=== PATIENT | male | born 2000 | race Caucasian/White ===

== ENCOUNTER 2023-04-16 00:52 | Emergency (ER) | payer OTHER, SELFPAY ==
[2023-04-16] VITALS (40 sets, daily range): BP systolic 108–165; BP diastolic 69–91; PULSE 60–102; RESP 9–26; TEMP 36.6; O2SAT 94–98; BMI 30.4
--- NOTE | 2023-04-16 00:55 | ED.OVERDOSE1 ---
Documented by User: Jessica Walker MD 04/16/23 19:27 HPI - Overdose General Chief Complaint: Overdose Stated Complaint: SUICIDE Time Seen by Provider: 04/16/23 00:54 History of Present Illness HPI Narrative: Patient brought in via EMS with the complaint of suicidal ideation. Patient states approximately 1220 he overdosed on 15-20 metoprolol 25 mg tablets. The cup with him and he drank one bottle of Capt. Oli and then to contact the pills saying that he wanted to kill himself. She states he thought that he was never going to be able to see history month And That's Why He Was so Depressed and Wanted to Kill Himself. However Now That He Is in the Hospital Anymore, He Realizes That He Shouldn't that that was thumb because he would never want to leave his son without his father. patient has never been hospitalized for mental health. he's never attempted suicide. patient found his father from suicide by hanging When he was 15.He states he is still sees the picture of his father hanging and he would not want this to happen to his children. The patient does not have any somatic complaints. MD complaint: Reports intentional overdose Intent: suicide attempt Related Data Home Medications Medication Instructions Recorded Confirmed cariprazine 3 mg capsule (Vraylar) 3 mg PO Q24H 04/16/23 04/16/23 clonazepam 0.5 mg tablet 0.5 mg PO Q12H PRN anxiety 04/16/23 04/16/23 pantoprazole 40 mg tablet,delayed 40 mg PO Q12H PRN acid reflux 04/16/23 04/16/23 release Allergies Allergy/AdvReac Type Severity Reaction Status Date / Time No Known Drug Allergies Allergy Verified 04/16/23 00:57 Review of Systems ROS Status of ROS 10 or more systems reviewed and unremarkable except as noted in history and below PFSH PFSH Social History Smoking status: Current every day smoker Exam Narrative Exam Narrative: Nurses notes and vital signs reviewed and patient is not hypoxic. General: Nontoxic, Well-appearing and in no apparent distress. Skin: Warm, dry, no pallor noted. No Rash Head: Normocephalic, atraumatic. Neck: Supple, non-tender. Eye: Pupils are equal, round and EOMI. No scleral icterus. Ears, Nose, Mouth, and Throat: TM clear, no posterior oropharynx erythema or nasal mucosal hypertrophy, uvula is mid-line Oral mucosa is moist Cardiovascular: Regular Rate and Rhythm without murmur, gallop or rub. Respiratory: No accessory muscle use or respiratory distress. Lungs are clear to auscultation, no wheezing, rales or rhonchi Chest Wall: no tenderness Back: No midline thoracic or lumbar vertebral tenderness. No CVA tenderness Musculoskeletal: normal ROM, no calf or popliteal tenderness, no lower extremity edema/swelling GI: Abdomen is soft, non-distended. Normal bowel sounds. No masses appreciated. No tenderness to palpation. No rebound, guarding, or rigidity noted. Neurological: A&O x4. No cranial nerve dysfunction observed. No truncal ataxia. Moves all extremities. Sensation intact. Psychiatric: Cooperative, flat affect Constitutional Vital Signs, click to edit/add: Last Vital Signs Temp 97.9 F 04/16/23 00:53 Pulse 69 04/16/23 05:39 Resp 16 04/16/23 05:39 BP 126/78 04/16/23 11:13 Pulse Ox 97 04/16/23 08:51 O2 Del Method Room Air 04/16/23 05:39 Course Vital Signs Vital signs: Vital Signs Blood Pressure 165/91 H 04/16/23 00:51 Temperature 97.9 F 04/16/23 00:53 Pulse Rate 69 04/16/23 05:39 Respiratory Rate 16 04/16/23 05:39 Blood Pressure 126/78 04/16/23 11:13 Pulse Oximetry 97 04/16/23 08:51 Oxygen Delivery Method Room Air 04/16/23 05:39 MDM - Overdose MDM Narrative Medical decision making narrative: Charcoal was ordered but the patient refused to take it. Controlled was contacted and they advised the patient did not want the charcoal they will would advise against doing an NG tube. Patient's potassium was low he was given 60 mEq of potassium. The patient remains hemodynamically stable. Patient is medically clear for inpatient psychiatric evaluation and treatment. He has been monitored since hours postingestion. He has not had any episodes of bradycardia or hypotension. All the paperwork has been faxed to [address] to direct admit this patient. Patient will be signed out at the end of my shift Dr. Godinez awaiting placement. This note was created with the assistance of a speech recognition program. Although the intention is to generate documents that actually reflects the content of the visit, no guarantees can be provided that every mistake has been identified and corrected by editing. Lab Data Attestation: I reviewed the patient's lab results. Labs: Lab Results 04/16/23 04/16/23 Range/Units 01:03 07:19 WBC 10.6 (4.0-11.0) 10^3/uL RBC 5.44 (4.70-6.10) 10^6/uL Hgb 16.7 (14.0-18.0) g/dL Hct 47.0 (42.0-54.0) % MCV 86.4 (80.0-94.0) fL MCH 30.7 (25.9-34.0) pg MCHC 35.5 H (29.9-35.2) g/dL RDW 12.6 (11.0-15.0) % Plt Count 241 (150-450) 10^3/uL MPV 9.7 (9.5-13.5) fL Neut % (Auto) 56.4 (43.0-75.0) % Lymph % (Auto) 28.8 (20.5-60.0) % [place] % (Auto) 6.8 (1.7-12.0) % Eos % (Auto) 6.8 (0.9-7.0) % Baso % (Auto) 0.8 (0.2-2.0) % Neut # (Auto) 6.0 (1.4-6.5) 10^3/uL Lymph # (Auto) 3.0 (1.2-3.8) 10^3/uL [place] # (Auto) 0.7 (0.3-0.8) 10^3/uL Eos # (Auto) 0.7 (0.0-0.7) 10^3/uL Baso # (Auto) 0.1 (0.0-0.1) 10^3/uL Abs Immat Gran (auto) 0.04 H (0.00-0.03) 10^3/uL Imm/Tot Granulo (auto) 0.4 (0.0-0.5) % Sodium 143 (136-145) mmol/L Potassium 2.9 L* 4.5 (3.5-5.1) mmol/L Chloride 109 H (98-107) mmol/L Carbon Dioxide 22.6 (21.0-32.0) mmol/L Anion Gap 14.3 BUN 9.0 (7.0-18.0) mg/dL Creatinine 0.90 (0.70-1.30) mg/dL Est GFR ( Amer) >60 (>=60) Est GFR (Non-Af Amer) >60 (>=60) BUN/Creatinine Ratio 10.0 Glucose 94 (74-106) mg/dL Calcium 8.6 (8.5-10.1) mg/dL Total Bilirubin 0.4 (0.2-1.0) mg/dL AST 26 (15-37) U/L ALT 56 (16-63) U/L Alkaline Phosphatase 104 (46-116) U/L Total Protein 7.4 (6.4-8.2) g/dL Albumin 4.1 (3.4-5.0) g/dL Globulin 3.3 g/dL Albumin/Globulin Ratio 1.2 Salicylates <2.8 (<=19.9) mg/dL Urine Opiates Screen Negative (NEGATIVE) Ur Buprenorphine Scrn Negative (NEGATIVE) Ur Oxycodone Screen Negative (NEGATIVE) Urine Methadone Screen Negative (NEGATIVE) Ur Propoxyphene Screen Negative (NEGATIVE) Acetaminophen <2.0 L (10.0-30.0) ug/mL Ur Barbiturates Screen Negative (NEGATIVE) U Tricyclic Antidepress Negative (NEGATIVE) Ur Phencyclidine Scrn Negative (NEGATIVE) Ur Amphetamines Screen Negative (NEGATIVE) U Methamphetamines Scrn Negative (NEGATIVE) U Benzodiazepines Scrn Negative (NEGATIVE) Urine Cocaine Screen Negative (NEGATIVE) U Cannabinoids Screen Negative (NEGATIVE) Ethanol Quant 41 mg/dL ECG Data Attestation: I personally reviewed and interpreted this ECG as follows: Discharge Plan Discharge Chief Complaint: Overdose Clinical Impression: Suicide attempt by beta lluvia overdose Patient Disposition: [facility] Time of Disposition Decision: 07:00 Discharge Location: [facility] Mode of Transportation: Mental Health Car Discharge Date/Time: 04/16/23 11:20 Documented by User: Jose Godinez 04/16/23 11:27 HPI - Overdose General Chief Complaint: Overdose Stated Complaint: SUICIDE Time Seen by Provider: 04/16/23 00:54 Related Data Home Medications Medication Instructions Recorded Confirmed cariprazine 3 mg capsule (Vraylar) 3 mg PO Q24H 04/16/23 04/16/23 clonazepam 0.5 mg tablet 0.5 mg PO Q12H PRN anxiety 04/16/23 04/16/23 pantoprazole 40 mg tablet,delayed 40 mg PO Q12H PRN acid reflux 04/16/23 04/16/23 release Allergies Allergy/AdvReac Type Severity Reaction Status Date / Time No Known Drug Allergies Allergy Verified 04/16/23 00:57 PFSH PFSH Social History Smoking status: Current every day smoker Exam Constitutional Vital Signs, click to edit/add: Last Vital Signs Temp 97.9 F 04/16/23 00:53 Pulse 69 04/16/23 05:39 Resp 16 04/16/23 05:39 BP 126/78 04/16/23 11:13 Pulse Ox 97 04/16/23 08:51 O2 Del Method Room Air 04/16/23 05:39 Course Vital Signs Vital signs: Vital Signs Blood Pressure 165/91 H 04/16/23 00:51 Temperature 97.9 F 04/16/23 00:53 Pulse Rate 69 04/16/23 05:39 Respiratory Rate 16 04/16/23 05:39 Blood Pressure 126/78 04/16/23 11:13 Pulse Oximetry 97 04/16/23 08:51 Oxygen Delivery Method Room Air 04/16/23 05:39 MDM - Overdose MDM Narrative Medical decision making narrative: Charcoal was ordered but the patient refused to take it. Controlled was contacted and they advised the patient did not want the charcoal they will would advise against doing an NG tube. Patient's potassium was low he was given 60 mEq of potassium. The patient remains hemodynamically stable. Patient is medically clear for inpatient psychiatric evaluation and treatment. He has been monitored since hours postingestion. He has not had any episodes of bradycardia or hypotension. All the paperwork has been faxed to [address] to direct admit this patient. Patient will be signed out at the end of my shift Dr. Godinez awaiting placement. This note was created with the assistance of a speech recognition program. Although the intention is to generate documents that actually reflects the content of the visit, no guarantees can be provided that every mistake has been identified and corrected by editing. Addendum - patient accepted at [address] Romeo and was transported by psych car to their facility for admission. No issues with the patient on my shift - Alan, DO Lab Data Labs: Lab Results 04/16/23 04/16/23 Range/Units 01:03 07:19 WBC 10.6 (4.0-11.0) 10^3/uL RBC 5.44 (4.70-6.10) 10^6/uL Hgb 16.7 (14.0-18.0) g/dL Hct 47.0 (42.0-54.0) % MCV 86.4 (80.0-94.0) fL MCH 30.7 (25.9-34.0) pg MCHC 35.5 H (29.9-35.2) g/dL RDW 12.6 (11.0-15.0) % Plt Count 241 (150-450) 10^3/uL MPV 9.7 (9.5-13.5) fL Neut % (Auto) 56.4 (43.0-75.0) % Lymph % (Auto) 28.8 (20.5-60.0) % Huntington % (Auto) 6.8 (1.7-12.0) % Eos % (Auto) 6.8 (0.9-7.0) % Baso % (Auto) 0.8 (0.2-2.0) % Neut # (Auto) 6.0 (1.4-6.5) 10^3/uL Lymph # (Auto) 3.0 (1.2-3.8) 10^3/uL Huntington # (Auto) 0.7 (0.3-0.8) 10^3/uL Eos # (Auto) 0.7 (0.0-0.7) 10^3/uL Baso # (Auto) 0.1 (0.0-0.1) 10^3/uL Abs Immat Gran (auto) 0.04 H (0.00-0.03) 10^3/uL Imm/Tot Granulo (auto) 0.4 (0.0-0.5) % Sodium 143 (136-145) mmol/L Potassium 2.9 L* 4.5 (3.5-5.1) mmol/L Chloride 109 H (98-107) mmol/L Carbon Dioxide 22.6 (21.0-32.0) mmol/L Anion Gap 14.3 BUN 9.0 (7.0-18.0) mg/dL Creatinine 0.90 (0.70-1.30) mg/dL Est GFR ( Amer) >60 (>=60) Est GFR (Non-Af Amer) >60 (>=60) BUN/Creatinine Ratio 10.0 Glucose 94 (74-106) mg/dL Calcium 8.6 (8.5-10.1) mg/dL Total Bilirubin 0.4 (0.2-1.0) mg/dL AST 26 (15-37) U/L ALT 56 (16-63) U/L Alkaline Phosphatase 104 (46-116) U/L Total Protein 7.4 (6.4-8.2) g/dL Albumin 4.1 (3.4-5.0) g/dL Globulin 3.3 g/dL Albumin/Globulin Ratio 1.2 Salicylates <2.8 (<=19.9) mg/dL Urine Opiates Screen Negative (NEGATIVE) Ur Buprenorphine Scrn Negative (NEGATIVE) Ur Oxycodone Screen Negative (NEGATIVE) Urine Methadone Screen Negative (NEGATIVE) Ur Propoxyphene Screen Negative (NEGATIVE) Acetaminophen <2.0 L (10.0-30.0) ug/mL Ur Barbiturates Screen Negative (NEGATIVE) U Tricyclic Antidepress Negative (NEGATIVE) Ur Phencyclidine Scrn Negative (NEGATIVE) Ur Amphetamines Screen Negative (NEGATIVE) U Methamphetamines Scrn Negative (NEGATIVE) U Benzodiazepines Scrn Negative (NEGATIVE) Urine Cocaine Screen Negative (NEGATIVE) U Cannabinoids Screen Negative (NEGATIVE) Ethanol Quant 41 mg/dL Discharge Plan Discharge Chief Complaint: Overdose Clinical Impression: Suicide attempt by beta lluvia overdose Patient Disposition: [facility] Time of Disposition Decision: 07:00 Discharge Location: [facility] Mode of Transportation: Mental Health Car Discharge Date/Time: 04/16/23 11:20
--- NOTE | 2023-04-16 00:57 | ECG_ITS ---
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
[2023-04-16 01:14] LABS: Basophils Absolute Auto 0.1 10^3/uL (0.0-0.1); Basophils Percent Auto 0.8 % (0.2-2.0); Eosinophils Absolute Auto 0.7 10^3/uL (0.0-0.7); Eosinophils Percent Auto 6.8 % (0.9-7.0); Hemoglobin 16.7 g/dL (14.0-18.0); Immature Granulocytes Abs Auto 0.04 10^3/uL (0.00-0.03); Immature Granulocytes Pct Auto 0.4 % (0.0-0.5); Lymphocytes Percent Auto 28.8 % (20.5-60.0); Mean Corpuscular HGB Conc 35.5 g/dL (29.9-35.2); Mean Corpuscular Hemoglobin 30.7 pg (25.9-34.0); Mean Corpuscular Volume 86.4 fL (80.0-94.0); Mean Platelet Volume 9.7 fL (9.5-13.5); Monocytes Absolute Auto 0.7 10^3/uL (0.3-0.8); Monocytes Percent Auto 6.8 % (1.7-12.0); Neutrophils Percent Auto 56.4 % (43.0-75.0); Platelet Count 241 10^3/uL (150-450); Red Blood Count 5.44 10^6/uL (4.70-6.10); Red Cell Distribution Width 12.6 % (11.0-15.0); White Blood Count 10.6 10^3/uL (4.0-11.0)
--- NOTE | 2023-04-16 01:20 | PC.NURSE ---
States now he is not suicidal. It was a stupid mistake. He was worried he wouldn't get to see his son due to the break-up.
[2023-04-16 01:26] LABS: Amphetamine Screen Urine NEGATIVE (NEGATIVE); Barbiturates Screen Urine NEGATIVE (NEGATIVE); Benzodiazepines Screen Urine NEGATIVE (NEGATIVE); Buprenorphine Screen Urine NEGATIVE (NEGATIVE); Cannabinoid Screen Urine NEGATIVE (NEGATIVE); Cocaine Screen Urine NEGATIVE (NEGATIVE); Ethanol 41 mg/dL; Methadone Screen Urine NEGATIVE (NEGATIVE); Methamphetamines Screen Urine NEGATIVE (NEGATIVE); Opiate Screen Urine NEGATIVE (NEGATIVE); Oxycodone Screen Urine NEGATIVE (NEGATIVE); Phencyclidine Screen Urine NEGATIVE (NEGATIVE); Salicylate <2.8 mg/dL (<=19.9); Tricyclic Antidepressant Urine NEGATIVE (NEGATIVE)
[2023-04-16 01:27] LABS: Acetaminophen <2.0 ug/mL (10.0-30.0)
[2023-04-16 01:42] LABS: Alanine Aminotransferase 56 U/L (16-63); Albumin Globulin Ratio 1.2; Albumin Level 4.1 g/dL (3.4-5.0); Alkaline Phosphatase 104 U/L (46-116); Anion Gap 14.3; Aspartate Amino Transferase 26 U/L (15-37); Bilirubin Total 0.4 mg/dL (0.2-1.0); Calcium 8.6 mg/dL (8.5-10.1); Carbon Dioxide 22.6 mmol/L (21.0-32.0); Chloride 109 mmol/L (98-107); Estimated GFR (African America >60 (>=60); Estimated GFR (Non-African Ame >60 (>=60); Globulin 3.3 g/dL; Glucose 94 mg/dL (74-106); Sodium 143 mmol/L (136-145); Total Protein 7.4 g/dL (6.4-8.2)
[2023-04-16] MEDS: 0.9 % SODIUM CHLORIDE 1,000 ML 999 ML IV (01:43)
[2023-04-16 01:44] LABS: Potassium 2.9 mmol/L (3.5-5.1)
[2023-04-16] MEDS: NICOTINE 21 MG PATCH TD (02:37)
[2023-04-16] MEDS: POTASSIUM CHLORIDE 10 MEQ ER TABLET 60 MEQ PO (03:25)
--- NOTE | 2023-04-16 06:14 | PC.NURSE ---
Hotline called and this nurse talked to Lottie about direct admit of this patient. Is aware of [facility]. Everything faxed to [facility].
[2023-04-16 07:30] LABS: Potassium 4.5 mmol/L (3.5-5.1)
[2023-04-16] MEDS: NICOTINE POLACRILEX 2 MG GUM PO (09:35)
== END 2023-04-16 11:20 ==
PROVIDERS: Emergency Medicine; Emergency Provider Emergency Medicine; PCP Family Medicine
DX: T44.7X2A Poisoning by beta-adrenoreceptor antagonists, intentional self-harm, initial encounter (principal); Z79.899 Other long term (current) drug therapy; F17.210 Nicotine dependence, cigarettes, uncomplicated
CPT/HCPCS: 36415; 80053; 80179; 80307; 80320; 80329; 84132; 85025; 93005; 99285

== ENCOUNTER 2023-08-17 09:26 | Outpatient (REF) | payer OTHER, SELFPAY ==
[2023-08-17 10:09] LABS: Influenza Virus A Antigen Negative; Influenza Virus B Antigen Negative; SARS-CoV-2 Ag POSITIVE (NEGATIVE)
[2023-08-17 14:48] LABS: Internal Control Within Normal Limits
== END 2023-08-17 09:27 | disposition home or self-care (01) ==
LOC: LAB 09:26
PROVIDERS: PCP Family Medicine; Visit Provider Family Medicine
DX: R50.9 Fever, unspecified (principal); R05.1 Acute cough
CPT/HCPCS: 87804; 87811

== ENCOUNTER 2025-02-23 15:42 | Emergency (ER) | payer OTHER, SELFPAY ==
--- OUTSIDE RECORDS SUMMARY | 2015-07-07 12:54 | XMS_ITS | Encounter Summary ---
Author Organization [facility] Address [address] [place] [address] Care Team Providers Care Labor Relations Consultant Name Role Phone Catarino Ziegler MD Primary Care Provider [phone] Encounter Details Date Type Department Care Team (Late st Contact Info) Description 07/07/2015 11:54 AM EST Hospital Encounter [facility] [address], [place] [id number] Sharath Plunkett MD [address] [facility] [address] [place], [place] [id number] Social History Tobacco Use Types Packs/Day Years Used Date Smoking Tobacco: Never Alcohol Use Standard Drinks/Week Comments Not Asked 0 (1 standard drink = 0.6 oz pur e alcohol) Sex and Gender Information Value Date Recorded Sex Assigned at Not on file Legal Sex Male 8:02 AM EDT Gender Identity Not on file Sexual Orientation Not on file documented as of this encounter Plan of Treatment Not on file documented as of this encounter Procedures Procedure Name Priority Date/Time Associated Diagnosis Comments RHYTHM STRIP REPORT 07/09/2015 2 :10 PM EST CARDIOLOGY REPORT 07/09/2015 2:1 0 PM EST STRESS TEST REPORT 07/08/2015 10 :43 PM EST NM MYOCARDIAL SPECT REST EXERCISE OR RX Routine 07/07/2015 4:43 PM EST documented in this encounter Results * RHYTHM STRIP REPORT (07/09/2015 2:10 PM EST) [facility] ECG ORDERABLES Final Result * CARDIOLOGY REPORT (07/09/2015 2:10 PM EST) [facility] CARDIAC SERVICES ORDERABLES Seema l Result * STRESS TEST REPORT (07/08/2015 10:43 PM EST) Narrative Transcriptions Sharath Plunkett MD - 07/07/2015 12:00 AM EST [facility] [place] [id number] Cardiovascular Diagnostics Department Patient Name: RAMONITA OSCAR Exam Date: 07/07/2015 CI Number: [id number] Document ID: [id number] Visit Number: [id number] Age: 15 MR Number: [id number] : 2000 Ordering Physician: Sharath Plunkett M.D. Gender: M PCP: Catarino Ziegler M.D. Room: OP Attending Physician: Sharath Plunkett M.D. Location: Radioisotope Stress INDICATION: Chest pain with exertion/accelerated idioventricular rhythm. CONSENT: Test explained and consent given. MEDICAL HISTORY: 15 year old with history of idioventricular accelerated rhythm and occasional exertional chest pain. Thus far all prelimtesting has been normal. He does experience symptoms with track. The patient exercised according to the Edilson protocol for 14:30 minutes achieving a work level of Max. METS: 17.20. The resting HR of 70 BPMrose to a maximal HR of 203 BPM. This value represents 99% of the maximal, age-predicted HR. The resting BP of 125/79 mmHg, alton to a maximum BPof 173/79 mmHg. The exercise test was stopped due to Fatigue and Shortnessof Breath. INTERPRETATION: Summary: Resting EKG: normal sinus rhythm with normal cardiacintervals. Functional Capacity: normal. HR Response to Exercise: appropriate.BP Response to Exercise: normal resting BP, appropriate response. Chest Pain: Mild 5 of 10 substernal (non-limiting) . Arrhythmias: 2isolated premature ventricular contractions during exercise. ST Changes: none. Overall Impression: Normal stress test. CONCLUSIONS: I thought Ramonita exercised well and did not show any evidence ofischemia. His isolated 2 premature ventricular contractions are nonsignificant andhe had no pathologic tachydysrhythmia. His chest pain was not associatedwith any EKG abnormalities and he was able to exercise well. He was somewhat out of shape and took some time to lower his HR after exercise. Please see Cardiolite report issued from the Department of Nuclear Medicine to determine our future plan In order to promptly notify physicians concerning their patients, this document is being released. It is not considered final until the physician's authentication is found below. Sharath Plunkett M.D. pg Dict: 07/07/2015 Trans: 07/08/2015 03:38 P cc: us Sharath Plunkett MD CARDIAC SERVICES ORDERABLES Final Result * NM Myocardial Spect Rest Exercise or Rx (07/07/2015 4:43 PM EST) Anatomical Region Laterality Modality Nuclear Medicine 07/07/2015 4:48 PM EST Impressions 07/07/2015 5:19 PM EST IMPRESSION: Normal study. No evidence for ischemia or infarction. Calculated left ventricular ejection fraction of 61%. Final report electronically signed by Jg Giraldo M.D. on 07/07/2015 5:19 PM Narrative 07/07/2015 5:19 PM EST EXAM: NM MYOCARDIAL SPECT REST EXERCISE OR RX - 07/07/2015 12:43 PM HISTORY: chest pn with exertion, 150# NKA 5'7 COMPARISON: None TECHNIQUE: Exercise myocardial nuclear medicine perfusion study with stress and rest imaging, one day protocol was performed. The patient received 31 mCi technetium 99m sestamibi for the stress portion and 13 mCi technetium 99m sestamibi for the rest portion. The stress portion of the examination was gated. The EKG portion of the study will be dictated independently by cardiology. FINDINGS: No abnormal extracardiac activity identified. Physiologic uptake within the hepatobiliary system. Motion artifact is present. There are no fixed or reversible perfusion defects to suggest myocardial infarction/ischemia. The gated SPECT data demonstrates normal left ventricular thickening and wall motion. The ventricular ejection fraction is calculated at 61%. TID = 0.79, there is no stress-induced cavitary dilatation to suggest compensated triple-vessel disease. SSS 0, SRS 0, SDS 0 Procedure Note Jg Giraldo MD - 11/23/2015 EXAM: NM MYOCARDIAL SPECT REST EXERCISE OR RX - 07/07/2015 12:43 PM HISTORY: chest pn with exertion, 150# NKA 5'7 COMPARISON: None TECHNIQUE: Exercise myocardial nuclear medicine perfusion study withstress and rest imaging, one day protocol was performed. The patientreceived 31 mCi technetium 99m sestamibi for the stress portion and 13 mCitechnetium 99m sestamibi for the rest portion. The stress portion of the examination was gated. The EKG portionof the study will be dictated independently by cardiology. FINDINGS: No abnormal extracardiac activity identified. Physiologic uptake withinthe hepatobiliary system. Motion artifact is present. There are no fixed or reversible perfusion defects to suggest myocardialinfarction/ischemia. The gated SPECT data demonstrates normal left ventricular thickening andwall motion. The ventricular ejection fraction is calculated at 61%. TID = 0.79, there is no stress-induced cavitary dilatation to suggestcompensated triple-vessel disease. SSS 0, SRS 0, SDS 0 IMPRESSION: Normal study. No evidence for ischemia or infarction. Calculated leftventricular ejection fraction of 61%. Final report electronically signed by Jg Giraldo M.D. on 07/07/20155:19 PM us Sharath Plunkett MD IMG NM ORDERABLES Final Resu lt documented in this encounter Visit Diagnoses Not on filedocumented in this encounter Administered Medications Inactive Administered Medications - up to 3 most recent administrations Medication Order MAR Action Action Date Dose Rate Site technetium sestamibi (CARDIOLITE) injection 13 rommel Curie 13 millicurie, IntraVENous, IMG ONCE PRN, 1 dose, Starting on Tue07/07/15 at 1643, Until Tue07/07/15 at 1215, Other Given 07/07/2015 12:15 PM EST 13 millicuries technetium sestamibi (CARDIOLITE) injection 31 rommel Curie 31 millicurie, IntraVENous, IMG ONCE PRN, 1 dose, Starting on Tue07/07/15 at 1643, Until Tue07/07/15 at 1425, Other Given 07/07/2015 2:25 PM EST 31 millicuries documented in this encounter Care Teams Labor Relations Consultant Relationship Specialty Start Date End Date Catarino Ziegler MD [address] [place] [address] PCP - General 07/07/15 documented as of this encounter
--- OUTSIDE RECORDS SUMMARY | 2024-07-23 13:28 | XMS_ITS ---
Author Organization [facility] in [place] Address [address] [place] [address] Care Team Providers Care Contact Lens Cutter Name Role Phone Michel Ziegler Primary Care Provider REASON FOR VISIT smoking Medications Medication SIG (Take, Route, Fr equency, Duration) Notes Start Date End Date Status Nicorette 4 MG 1 piece chew for 30 minutes as needed Mouth/Throat every 6 hours PRN 07/24/2024 A ctive Encounters Encounter Location Date Provider Diagnosis [facility] [address] [place] [address] 07/23/2024 Michel Ziegler Plan Of Treatment Medication Medication Name Sig Start Date Stop Date Notes Nicorette 4 MG 1 piece chew for 30 minutes as needed Mouth/Throat every 6 hours PRN 07/24/2024 Progress Notes * Rickie OSCAR EDOB: [birth year] (24 yo M)Acc No.[id number]:07/23/2024 Patient: Rickie YE :2000 A ge:24 Y S ex:Male Address:[address] [place] [address] [place] [address] * Refills Start Nicorette Gum, 4 MG, Mouth/Throat, 100 Each, 1 piece chew for 30 minutes as needed, every 6 hours PRN, Refills=11 Subjective: * Chief Complaints: * S moking * Medical History: * Surgical History: * Hospitalization/Major Diagno stic Procedure: * Medications: Objective: * Vitals: * Physical Examination: Assessment: Plan: * Treatment: * Procedure Codes: * true * Date: Generated for Talisha butt/Matias/Johny on: 0 02/23/2025 03:59 PM EDT
--- OUTSIDE RECORDS SUMMARY | 2024-08-03 08:49 | XMS_ITS ---
Author Organization [facility] in [place] Address [address] [place] [address] Care Team Providers Care Medical Insurance Biller Name Role Phone Michel Ziegler Primary Care Provider REASON FOR VISIT letter for animal Encounters Encounter Location Date Provider Diagnosis [facility] [address] [facility] [place] [address] 08/03/2024 Michel Ziegler Plan Of Treatment No Information Progress Notes * Rickie OSCAR EDOB: [birth year] (24 yo M)Acc No.[id number]:08/03/2024 Patient: Rickie YE :2000 A ge:24 Y S ex:Male Address:[address] [place] [address] [place] [address] * true * Date: Generated for Sorayai daquan/Favidag/eTransmitting on: 0 02/23/2025 03:59 PM EDT
--- OUTSIDE RECORDS SUMMARY | 2024-10-15 06:03 | XMS_ITS ---
Author Organization [facility] in [place] Address [address] [place] [address] Care Team Providers Care Skull Splitter Name Role Phone Michel Ziegler Primary Care Provider REASON FOR VISIT sick Medications Medication SIG (Take, Route, Frequency, Duration) Notes Start Date End Date Status Amoxicillin-Pot Clavulanate 875-125 MG 1 tablet Orally every 12 hrs for 10 days 10/15/2024 Active Encounters Encounter Location Date Provider Diagnosis [facility] [address] [place] [address] 10/15/2024 Michel Ziegler Plan Of Treatment Medication Medication Name Sig Start Date Stop Date Notes Amoxicillin-Pot Clavulanate 875-125 MG 1 tablet Orally every 12 hrs for 10 days 10/15/2024 Progress Notes * CATHYMirta DESOUZAeden EDOB: [birth year] (24 yo M)Acc No.[id number]:10/15/2024 Patient: Rickie YE Eva :2000 A ge:24 Y S ex:Male Address:[address] [place] [address] * Refills Start Amoxicillin-Pot Clavulanate Tablet, 875-125 MG, Orally, 20 Tablet, 1 tablet, every 12 hrs, 10 days, Refills=1 * true * Date: Generated for Printi ng/Faxing/eTransmitting on: 0 02/23/2025 03:59 PM EDT
[2025-02-23] VITALS (29 sets, daily range): BP systolic 116–156; BP diastolic 91–103; PULSE 90–106; TEMP 37–37.1; O2SAT 90–94; BMI 33.5
--- NOTE | 2025-02-23 15:54 | ECG_ITS ---
[facility] Test Date: 2025-02-23 Pat Name: RAMONITA ADEN Department: Room: - Gender: Male [employer] Representative: : 2000 Requested By: [id number] Order Number: [id number] Reading MD: DENIS LEE Measurements Intervals [place] Rate: 96 P: 13 HI: 112 QRS: 49 QRSD: 74 T: 60 QT: 328 QTc: 382 Interpretive Statements 1100 Sinus rhythm 2210 Short HI interval 9150 abnormal ECG Compared to ECG 04/16/2023 01:00:32 Short HI interval now present Sinus tachycardia no longer present Electronically Signed On 02-26-2025 16:21:39 EDT by DENIS LEE
--- NOTE | 2025-02-23 15:54 | XR_ITS ---
[place] [address] Patient Name: RAMONITA ADEN MRN: [id number] date: 2000 Sex: M Assigned Patient Location: ED.MAIN Current Patient Location: ED.MAIN Accession/Order Number: [id number] Exam Date: 02/23/2025 16:51 Report Date: 02/23/2025 16:53 At the request of: CELESTE BROWN MD Procedure: XR chest 1V XR chest 1V 02/23/2025 4:36 PM SIGNS AND SYMPTOMS: ^sob PROTOCOL: Frontal radiograph of the chest COMPARISON: None FINDINGS: The trachea is midline. The heart and mediastinal structures are within normal limits. The lung parenchyma is clear. The bony thorax is intact. XR/XR chest 1V IMPRESSION: No acute cardiopulmonary pathology. Impression dictated by: Audi Cameron M.D. 02/23/2025 4:53 PM Dictation Location: [place] [address] Electronically authenticated by: [id number] Y Date: 02/23/2025 16:53
--- OUTSIDE RECORDS SUMMARY | 2025-02-23 15:59 | XMS_ITS | CCD ---
Author Organization [facility] Care Team Providers Care Hull Drafter Name Role Phone Unavailable Primary Care Provider UnavailMarisela Khan Primary Care Physician [phone] Unavailable Primary Care Provider UnavailDR MARISELA Khan Primary Care Unavailable VIOLETA TOBAR Admitting Unavailable VIOLETA TOBAR Attending Unavailable DR MARISELA ZIEGLER Primary Care Unavailable JOAQUIM ASCENCIO Admitting Unavailable JOAQUIM ASCENCIO Attending Unavailable RANDI NAQVI Unavailable PROVIDER, UNKNOWN Attending Unavailable PROVIDER, UNKNOWN Admitting Unavailable Feliz Santana Attending Unavailable Provider, None Primary Care Unavailable Feliz Santana Admitting Unavailable Feliz Santana Admitting Unavailable Feliz Santana Attending Unavailable Provider, None Primary Care Unavailable MD Marisela Ziegler Primary Care Provider [phone] DO Wendie Casas Emergency Provider MD Marisela Ziegler Primary Care Provider [phone] MD Margareth Romeo Admit Provider MD Margareth Romeo Attending Provider Jw Chow Attending Unavailable Margareth Romeo Admitting Marisela Conley Primary Care Unavailable Wendie Casas Admitting Unavailable Wendie Casas Attending Unavailable Marisela Zigeler Primary Care Unavailable EVA BRICE Attending Unavailable Medications Current Medications Medication Drug Class(es) Dates Sig (Normalized) Sig (Original) cariprazine 3 mg oral capsule (3 sources) Atypical Antipsychotic Start: 04-16-2023 take 1 capsule by mouth once daily Cariprazine (Vraylar) 3 mg Capsule Active 3 MG PO Daily April 16, 2023 12:00am Start: 05-02-2020 take 1 capsule by mo [facility] once daily Vraylar 3 mg oral capsule 3 mg = 1 cap(s), Oral, Daily, # 30 cap(s), Refills(s) 5, Pharmacy: [facility] 1155, 169.6, cm, 04/09/20 9:30:00 EDT, Height/Length Dosing, 92, kg, 04/09/20 9:30:00 EDT, Weight Dosing Start Date: 05/02/20 Status: Ordered clonazePAM 0.5 mg oral tablet (3 sources) Benzodiazepine Start: 04-16-2023 take 0.5 mg by mouth twice daily Clonazepam Active 0.5 MG PO Twice daily April 16, 2023 12:00am Start: 05-02-2020 take [address] [facility] once daily as needed for anxiety Klonopin 0.5 mg Tab 0.5 mg = 1 tab(s), Oral, Daily, PRN Anxiety, # 30 tab(s), Refills(s) 0, Pharmacy: [facility] 1155, 169.6, cm, 04/09/20 9:30:00 EDT, Height/Length Dosing, 92, kg, 04/09/20 9:30:00 EDT, Weight Dosing Start Date: 05/02/20 Status: Ordered metoprolol tartrate 25 mg oral tablet (2 sources) beta-Adrenergic Louise Start: 04-21-2021 take 1 tablet by mouth twice daily Lopressor 25 mg oral tablet 25 mg = 1 tab(s), Oral, BID, Refills(s) 0, High blood pressure Start Date: 04/21/21 Status: Ordered nicotine 2 mg chewing gum (1 source) Cholinergic Nicotinic Agonist Start: 04-19-2023 Nicotine (Polacrilex) Active 2 MG BUCCAL Q2H 30 April 19, 2023 12:00am pantoprazole 40 mg delayed release oral tablet (2 sources) Proton Pump Inhibitor Start: 03-16-[address] Tab 40 mg = 1 tab(s), Oral, Daily, Refills(s) 0, Control of stomach acid Start Date: 03/16/22 Status: Ordered sucralfate 1000 mg oral tablet (1 source) Aluminum Complex Start: 03-22-2022 take 1 tablet by mouth four times daily Carafate 1 gram Tab 1 gm = 1 tab(s), Oral, QID, # 120 tab(s), Refills(s) 3, Pharmacy: [facility] 1155, 170, cm, 03/22/22 7:27:00 EDT, Height/Length Dosing, 91, kg, 03/22/22 7:27:00 EDT, Weight Dosing Start Date: 03/22/22 Status: Ordered Problems Active Problems Problem Classification Problem Date Documented Da te Episodic/Chronic Abdominal pain (6 sources) Periumbilical pain; Translations: [Periumbilical pain] Onset: 03-16-2022 Episodic Adjustment disorders (1 source) Stress; Translations: [Reaction to severe stress, unspecified] Chronic Anxiety disorders (1 source) Social phobia; Translations: [Social phobia, unspecified] Chronic Cardiac dysrhythmias (2 sources) Sick sinus syndrome 04-27-2019 Chronic Gastrointestinal hemorrhage (3 sources) Melena; Translations: [Melena] Onset: 03-16-2022 Episodic Mood disorders (5 sources) Bipolar affective disorder, currently depressed, moderate; Translations: [Bipolar disorder] Onset: 04-16-2023 04-09-2020 Chronic Nausea and vomiting (3 sources) Nausea and vomiting; Translations: [Nausea with vomiting, unspecified] Onset: 03-16-2022 Episodic Other gastrointestinal disorders (1 source) Abnormal feces; Translations: [Other fecal abnormalities] Onset: 03-16-2022 Episodic Other gastrointestinal disorders (1 source) Altered bowel function; Translations: [Change in bowel habit] Onset: 03-16-2022 Episodic Other gastrointestinal disorders (2 sources) Alteration in bowel elimination 03-16-2022 Episodic Other gastrointestinal disorders (2 sources) Loose stool 03-16-2022 Episodic Other nutritional; endocrine; and metabolic disorders (2 sources) Body mass index 30+ - obesity 03-16-2022 Chronic Residual codes; unclassified (4 sources) Procedure and treatment not carried out due to patient leaving prior to being seen by health care provider; Translations: [PROC AND TX NOT CARRIED OUT PT LEAVE] Onset: 04-17-2022 Episodic Residual codes; unclassified (2 sources) Alcoholism; Translations: [Alcohol use disorder] 04-17-2023 Episodic Spondylosis; intervertebral disc disorders; other back problems (4 sources) Dorsalgia, unspecified; Translations: [Muscle spasm of back] Onset: 07-06-2022 Episodic Substance-related disorders (2 sources) Smoker 04-27-2019 Chronic Comment on above: Added secondary to d ocumentation in Social History. Syncope (1 source) Syncope; Translations: [Syncope and collapse] Episodic Unclassified (1 source) LOW BACK PAIN, UNSPECIFIED; Translations: [LOW BACK PAIN, UNSPECIFIED] Onset: 07-12-2022 Unclassified (1 source) Alcohol use, unspecified, uncomplicated; Translations: [Alcohol use, unspecified, uncomplicated] Onset: 04-16-2023 Past or Other Problems Problem Classification Problem Date Documented Da te Episodic/Chronic Nonspecific chest pain (3 sources) Chest pain; Translations: [Chest pain, unspecified] Onset: 12-03-2022 12-03-2022 Episodic Results Test Name Value Interpretation Reference Range Facility Patient Letter FTon 2023 Patient Letter [facility] Patient Letter [facility] July 26, [address] [id number] : [address] [address] : 2000 To Whom It May Concern, The above named person has a known gastrointestinal medical condition that results in episodes of nausea and vomiting. Sincerely, Dr. Randi Valencia MD [facility] Provider Letteron 03-19-2024 Provider Letter Provider Letter March 19, [address] [id number] : 2000 To Whom It May Concern, The above named person has a known gastrointestinal medical condition that results in episodes of nausea and vomiting. Sincerely, Dr. Randi Valencia MD [facility] Cholesterol [Mass/volume] in Serum or PlasmaOrdered By: Mack Romeo on 04-17-2023 Cholesterol [Mass/Vol] 133 mg/dL 140-200 [facility] Comment on above: Chol less than 200 m g/dl low riskChol 201-239 mg/dl borderline riskChol 240 mg/dl and greater high risk Cholesterol in LDL Calc [Mas s/Vol]Ordered By: Mack Romeo on 04-17-2023 Cholesterol in LDL [Mass/Vol] 64 mg/dL 0-100 [facility] Comment on above: LDL ATP III CLASSIFI CATIONLDL less than 100 mg/dL OptimalLDL 100-129 mg/dL Near or above optimalLDL 130-159 mg/dL Borderline highLDL 160-189 mg/dL HighLDL greater than 189 mg/dL Very high Cholesterol in VLDL Calc [Ma ss/Vol]Ordered By: Mack Romeo on 04-17-2023 Cholesterol in VLDL [Mass/Vol] 42 mg/dL [facility] Lipid Panelon 04-17-2023 Cholesterol [Mass/Vol] 133 mg/dL Low 140-200 [facility] Comment on above: Result Comment: Chol less than 200 mg/dl low risk Chol 201-239 mg/dl borderline risk Chol 240 mg/dl and greater high risk Performed By: #### V [id number], LIPID, TSH3 wRFLX #### [facility] [address] [place] [id number] [place] Cholesterol in HDL [Mass/Vol] 27 mg/dL Normal 23-92 [facility] Comment on above: Result Comment: HDL CHOL ATP-III CLASSIFICATION Cardiovascular Risk HDL > or equal to 60 mg/dL LOW HDL < 40 mg/dL HIGH Performed By: #### V [id number], LIPID, TSH3 wRFLX #### [facility] [address] [place] [address] [place] Cholesterol.total/Chol esterol in HDL [Mass ratio] 4.9 {ratio} Normal <5.0 [facility] Comment on above: Performed By: #### V [id number], LIPID, TSH3 wRFLX #### [facility] [address] [place] [address] [place] LDL Cholesterol,Calculated 64 mg/dL Normal 0-100 [facility] Comment on above: Result Comment: LDL ATP III CLASSIFICATION LDL less than 100 mg/dL Optimal LDL 100-129 mg/dL Near or above optimal LDL 130-159 mg/dL Borderline high LDL 160-189 mg/dL High LDL greater than 189 mg/dL Very high Performed By: #### V [id number], LIPID, TSH3 wRFLX #### [facility] [address] Triglyceride w/Reflex 212 mg/dL High 0-149 [facility] Comment on above: Result Comment: TRIG ATP III CLASSIFICATION TRIG less than 150 mg/dL Normal TRIG 150-199 mg/dL Borderline high TRIG 200-500 mg/dL High TRIG greater than 500 mg/dL Very high Standard traceable to the Center for Disease Conrtrol and Prevention (CDC) test method. Performed By: #### V [id number], LIPID, TSH3 wRFLX #### [facility] [address] VLDL CHOLESTEROL 42 mg/dL Normal [facility] Comment on above: Performed By: #### V [id number], LIPID, TSH3 wRFLX #### [facility] [address] Serum or plasma high density lipoprotein (HDL) cholesterol measurementOrdered By: Mack Romeo on 04-17-2023 Cholesterol in HDL [Mass/Vol] 27 mg/dL 23-92 [facility] Comment on above: HDL CHOL ATP-III CLA SSIFICATION Cardiovascular RiskHDL > or equal to 60 mg/dL LOWHDL < 40 mg/dL HIGH Serum or plasma total choles terol/high density lipoprotein (HDL) cholesterol mass ratOrdered By: Mack Romeo on 04-17-2023 Cholesterol.total/Chol esterol in HDL [Mass ratio] 4.9 {ratio} <5.0 [facility] Thyroid Stim Hormone w/Rflxo n 04-17-2023 Thyroid Stim Hormone w/Rflx 0.97 u[iU]/mL Normal 0.45-5.33 [facility] Comment on above: Performed By: #### V [id number], LIPID, TSH3 wRFLX #### [facility] [address] Thyrotropin [Units/volume] i n Serum or PlasmaOrdered By: Mack Romeo on 04-17-2023 TSH Qn 0.97 m[IU]/L 0.45-5.33 [facility] Triglyceride [Mass/volume] i n Serum or PlasmaOrdered By: Mack Romeo on 04-17-2023 Triglyceride [Mass/Vol] 212 mg/dL 0-149 [facility] Comment on above: TRIG ATP III CLASSIF ICATIONTRIG less than 150 mg/dL NormalTRIG 150-199 mg/dL Borderline highTRIG 200-500 mg/dL High TRIG greater than 500 mg/dL Very highStandard traceable to the Center for Disease Conrtrol and Prevention (CDC) test method. Vitamin D 25 Hydroxy Totalon 04-17-2023 Vitamin D 25 Hydroxy Total 21.1 ng/mL Low 30-100 [facility] Comment on above: Result Comment: [place]ON MIN D STATUS 25(OH)VITAMIN D RANGE (ng/mL) Deficient <20 Insufficient 20 to <30 Sufficient 30 to 100 Reference: Dave Zavala, Melvin PAUL, et al. Evaluation,treatment, and prevention of vitamin D deficiency; an Endocrine Society clinical practice guideline. JCEM. 2010; 96(7):1911-. PERFORMED BY: [place] [address] PATHOLOGIST DIRECTOR OF RETAIL ANALYTICS DM MCMAHON M.D. Performed By: #### V [id number], LIPID, TSH3 wRFLX #### [address] Vitamin D+Metabolites [Mass/ volume] in Serum or PlasmaOrdered By: Mack Romeo on 04-17-2023 Vitamin D+Metabolites [Mass/Vol] 21.1 ng/mL 30-100 [facility] Comment on above: VITAMIN D STATUS 25( [place])VITAMIN D RANGE (ng/mL) Deficient <20 Insufficient 20 to <30Sufficient 30 to 100Reference: Dave Zavala, Melvin PAUL, et al. Evaluation,treatment, and prevention of vitamin D deficiency; an Endocrine Society clinical practice guideline. JCEM. 2010; 96(7):1911-30. ECG 12 lead ECGon 04-16-2023 ECG 12 lead ECG [facility] [place] [address] [place] [address] Electrocardiograph Report Signed Patient: Rickie Oscar MR#: [id number] : 2000 Acct:[id number] Age/Sex: 23 / M ADM Date: 04/16/23 Loc: Room: [address] [place] [address] Type: ADM IN Attending Dr: Margareth Romeo MD Ordering Provider: Mack Romeo MD Date of Service: 04/16/2310/07/1249 ECG/ECG 12 lead ECG: New Admit Copies to: Test Reason : Blood Pressure : / mmHG Vent. Rate : 061 BPM Atrial Rate : 061 BPM P-R Int : 112 ms QRS Dur : 084 ms QT Int : 388 ms P-R-T Axes : 015 067 040 degrees QTc Int : 390 ms Normal sinus rhythm with sinus arrhythmia Normal ECG When compared with ECG of 03-DEC-2022 12:54, No significant change was found Confirmed by ROSALVA NEWMAN DO ([id number]) on 04/17/2023 9:18:32 AM Referred By: Electronically Signed By:ROSALVA NEWMAN DO Transcribed By: MUS Signed By Rosalva Newman DO 04/17 0918 Normal [facility] Activated partial thrombopla stin time (aPTT) in platelet poor plasma by coagulation aOrdered By: Wendie Casas on 12-03-2022 aPTT Coag (PPP) [Time] 29.2 s 25.1-36.5 [facility] B-Type Natriuretic Peptideon 12-03-2022 Natriuretic peptide B (Bld) [Mass/Vol] 10.0 pg/mL Normal 5-100 [facility] Comment on above: Result Comment: PERF ORMED BY: [place] [address] PATHOLOGIST DIRECTOR OF RETAIL [employer]NALYT[employer] DM MCMAHON M.D. Performed By: #### C BC, BNP, HS TROP, BMP, PT, PTT #### [address] Basic Metabolic Panelon 11-14 Anion gap [Moles/Vol] 11.8 mmol/L Normal 6.0-15.0 [facility] Comment on above: Performed By: #### C BC, BNP, HS TROP, BMP, PT, PTT #### [address] Calcium [Mass/Vol] 9.1 mg/dL Normal 8.6-10.3 [facility] Comment on above: Performed By: #### C BC, BNP, HS TROP, BMP, PT, PTT #### [facility] [address] Chloride [Moles/Vol] 105 mmol/L Normal 98-107 [facility] Comment on above: Performed By: #### C BC, BNP, HS TROP, BMP, PT, PTT #### [address] CO2 [Moles/Vol] 25.8 mmol/L Normal 21.0-31.0 [facility] Comment on above: Performed By: #### C BC, BNP, HS TROP, BMP, PT, PTT #### [address] Creatinine [Mass/Vol] 0.94 mg/dL Normal 0.70-1.30 [facility] Comment on above: Performed By: #### C BC, BNP, HS TROP, BMP, PT, PTT #### [address] Creatinine Clr Calc Pharmacy 138.43 [facility] Comment on above: Result Comment: PERF ORMED BY: [place] [address] PATHOLOGIST DIRECTOR OF RETAIL ANALYT[employer] DM MCMAHON M.D. Performed By: #### C BC, BNP, HS TROP, BMP, PT, PTT #### [place] [address] [place] GFR/1.73 sq M.predicted MDRD (S/P/Bld) [Vol rate/Area] mL/min/{1.73_m2} [facility] Comment on above: Performed By: #### C BC, BNP, HS TROP, BMP, PT, PTT #### [facility] [address] Glucose [Mass/Vol] 92 mg/dL Normal 70-100 [facility] Comment on above: Result Comment: [facility] Glucose Reference Range is dependent on time and content of last meal. Glucose of more than 200 mg/dL in a nonstressed, ambulatory subject supports the diagnosis of Diabetes Mellitus. ADA recommended reference range Performed By: #### C BC, BNP, HS TROP, BMP, PT, PTT #### [facility] [address] Potassium [Moles/Vol] 3.6 mmol/L Normal 3.5-5.1 [facility] Comment on above: Performed By: #### C BC, BNP, HS TROP, BMP, PT, PTT #### [facility] [address] Sodium [Moles/Vol] 139 mmol/L Normal 136-145 [facility] Comment on above: Performed By: #### C BC, BNP, HS TROP, BMP, PT, PTT #### [facility] [address] Urea nitrogen [Mass/Vol] 12 mg/dL Normal 7-25 [facility] Comment on above: Performed By: #### C BC, BNP, HS TROP, BMP, PT, PTT #### [facility] [address] Basophils Auto (Bld) [#/Vol] Ordered By: Wendie Casas on 12-03-2022 Basophils (Bld) [#/Vol] 0.1 10*3/uL 0.0-0.2 [facility] Basophils/100 WBC Auto (Bld) Ordered By: Wendie Casas on 12-03-2022 Basophils/100 WBC (Bld) 0.6 % . [facility] Calcium [Mass/volume] in Ser um or PlasmaOrdered By: Wendie Casas on 12-03-2022 Calcium [Mass/Vol] 9.1 mg/dL 8.6-10.3 [facility] Carbon dioxide, total [Moles /volume] in Serum or PlasmaOrdered By: Wendie Casas on 12-03-2022 CO2 [Moles/Vol] 25.8 mmol/L 21.0-31.0 [facility] Chloride [Moles/volume] in S macho or PlasmaOrdered By: Wendie Casas on 12-03-2022 Chloride [Moles/Vol] 105 mmol/L 98-107 [facility] Complete Blood Count Auto Di ffon 12-03-2022 Basophils (Bld) [#/Vol] 0.1 10*3/uL Normal 0.0-0.2 [facility] Comment on above: Result Comment: PERF ORMED BY: [place] [address] PATHOLOGIST DIRECTOR OF [employer]AIL [employer]LY[employer] DM MCMAHON M.D. Performed By: #### C BC, BNP, HS TROP, BMP, PT, PTT #### [address] Basophils/100 WBC (Bld) 0.6 % Normal . [facility] Comment on above: Performed By: #### C BC, BNP, HS TROP, BMP, PT, PTT #### [facility] [address] [place] [address] Eosinophils (Bld) [#/Vol] 0.9 10*3/uL High 0.0-0.45 [facility] Comment on above: Performed By: #### C BC, BNP, HS TROP, BMP, PT, PTT #### [facility] [address] [place] [address] Eosinophils/100 WBC (Bld) 10.2 % Normal . [facility] Comment on above: Performed By: #### C BC, BNP, HS TROP, BMP, PT, PTT #### [address] Erythrocyte distribution width (RBC) [Ratio] 13.4 % Normal 12.0-14.8 [facility] Comment on above: Performed By: #### C BC, BNP, HS TROP, BMP, PT, PTT #### [address] Hematocrit (Bld) [Volume fraction] 48.0 % Normal 38.8-50.0 [facility] Comment on above: Performed By: #### C BC, BNP, HS TROP, BMP, PT, PTT #### [address] Hemoglobin (Bld) [Mass/Vol] 16.9 g/dL Normal 13.0-17.0 [facility] Comment on above: Performed By: #### C BC, BNP, HS TROP, BMP, PT, PTT #### [address] Lymphocytes (Bld) [#/Vol] 2.7 10*3/uL Normal 1.00-4.8 [facility] Comment on above: Performed By: #### C BC, BNP, HS TROP, BMP, PT, PTT #### [address] Lymphocytes/100 WBC (Bld) 29.3 % Normal . [facility] Comment on above: Performed By: #### C BC, BNP, HS TROP, BMP, PT, PTT #### [address] MCH (RBC) [Entitic mass] 30.7 pg Normal 27.5-35.2 [facility] Comment on above: Performed By: #### C BC, BNP, HS TROP, BMP, PT, PTT #### [address] MCV (RBC) [Entitic vol] 87.4 fL Normal 83.5-101 [facility] Comment on above: Performed By: #### C BC, BNP, HS TROP, BMP, PT, PTT #### [address] Mean Corpuscular HGB Conc 35.1 g/dL Normal 32.5-35.6 [facility] Comment on above: Performed By: #### C BC, BNP, HS TROP, BMP, PT, PTT #### [address] Monocytes (Bld) [#/Vol] 0.6 10*3/uL Normal 0.0-0.8 [facility] Comment on above: Performed By: #### C BC, BNP, HS TROP, BMP, PT, PTT #### [facility] [address] [place] [address] [place] Monocytes/100 WBC (Bld) 15.49 % Normal 0.00-20.00 [facility] Comment on above: Performed By: #### C BC, BNP, HS TROP, BMP, PT, PTT #### [facility] [address] Monocytes/100 WBC (Bld) 6.9 % Normal . [facility] Comment on above: Performed By: #### C BC, BNP, HS TROP, BMP, PT, PTT #### [address] Neutrophils (Bld) [#/Vol] 4.8 10*3/uL Normal 1.8-7.7 [facility] Comment on above: Performed By: #### C BC, BNP, HS TROP, BMP, PT, PTT #### [address] Neutrophils/100 WBC (Bld) 53.0 % Normal . [facility] Comment on above: Performed By: #### C BC, BNP, HS TROP, BMP, PT, PTT #### [address] NRBC% 0.2 /100{WBC} Normal 0-0.5 [facility] Comment on above: Performed By: #### C BC, BNP, HS TROP, BMP, PT, PTT #### [facility] [address] [place] [address] [place] Platelet mean volume (Bld) [Entitic vol] 8.3 fL Normal 6.6-10.1 [facility] Comment on above: Performed By: #### C BC, BNP, HS TROP, BMP, PT, PTT #### [place] [address] [place] Platelets (Bld) [#/Vol] 231 10*3/uL Normal 150-450 [facility] Comment on above: Performed By: #### C BC, BNP, HS TROP, BMP, PT, PTT #### [facility] [address] RBC (Bld) [#/Vol] 5.49 10*6/uL Normal 3.90-5.60 [facility] Comment on above: Performed By: #### C BC, BNP, HS TROP, BMP, PT, PTT #### [facility] [address] WBC (Bld) [#/Vol] 9.1 10*3/uL Normal 4.1-10.5 [facility] Comment on above: Performed By: #### C BC, BNP, HS TROP, BMP, PT, PTT #### [facility] [address] Creatinine [Mass/volume] in Serum or PlasmaOrdered By: Wendie Casas on 12-03-2022 Creatinine [Mass/Vol] 0.94 mg/dL 0.70-1.30 [facility] ECG 12 lead ECGon 12-03-2022 ECG 12 lead ECG [facility] [place] [address] [place] [address] Electrocardiograph Report Signed Patient: Rickie Oscar MR#: [id number] : 2000 Acct:[id number] Age/Sex: 22 / M ADM Date: 12/03/22 Loc: ER Room: Type: [facility] ER Attending Dr: Ordering Provider: Wendie Casas DO Date of Service: 12/03/22 ECG/ECG 12 lead ECG: Chest Pain Copies to: Test Reason : Blood Pressure : 141/083 mmHG Vent. Rate : 085 BPM Atrial Rate : 085 BPM P-R Int : 146 ms QRS Dur : 078 ms QT Int : 338 ms P-R-T Axes : 036 068 037 degrees QTc Int : 402 ms Normal sinus rhythm Normal ECG When compared with ECG of 02-NOV-2016 13:16, Previous ECG has undetermined rhythm, needs review Confirmed by PRASANNA IZAGUIRRE DO ([id number]) on 12/05/2022 2:12:15 AM Referred By: Electronically Signed By:PRASANNA IZAGUIRRE DO Transcribed By: MUS Signed By Prasanna Izaguirre DO 021 Normal [facility] Eosinophils Auto (Bld) [#/Vo l]Ordered By: Wendie Casas on 12-03-2022 Eosinophils (Bld) [#/Vol] 0.9 10*3/uL 0.0-0.45 [facility] Eosinophils/100 WBC Auto (Bl d)Ordered By: Wendie Casas on 12-03-2022 Eosinophils/100 WBC (Bld) 10.2 % . [facility] Erythrocyte distribution wid th Auto (RBC) [Ratio]Ordered By: Wendie Casas on 12-03-2022 Erythrocyte distribution width (RBC) [Ratio] 13.4 % 12.0-14.8 [facility] Glucose [Mass/volume] in Ser um or PlasmaOrdered By: Wendie Casas on 12-03-2022 Glucose [Mass/Vol] 92 mg/dL 70-100 [facility] Comment on above: ADA recommended refe rence rangeRandom Glucose Reference Range is dependent on time and content of last meal. Glucose of more than 200 mg/dL in a nonstressed, ambulatory subject supports the diagnosis of Diabetes Mellitus. Hematocrit Auto (Bld) [Volum e fraction]Ordered By: Wendie Casas on 12-03-2022 Hematocrit (Bld) [Volume fraction] 48.0 % 38.8-50.0 [facility] Hemoglobin [Mass/volume] in BloodOrdered By: Wendie Casas on 12-03-2022 Hemoglobin (Bld) [Mass/Vol] 16.9 g/dL 13.0-17.0 [facility] Laboratory - CoagulationOrde red By: Wendie Casas on 12-03-2022 PT Coag (PPP) [Time] 12.2 s 9.0-12.9 [facility] Leukocytes [#/volume] correc nadege for nucleated erythrocytes in Blood by Automated counOrdered By: Wendie Casas on 12-03-2022 WBC corrected for nucl RBC Auto (Bld) [#/Vol] 9.1 10*3/uL 4.1-10.5 [facility] Lymphocytes Auto (Bld) [#/Vo l]Ordered By: Wendie Casas on 12-03-2022 Lymphocytes (Bld) [#/Vol] 2.7 10*3/uL 1.00-4.8 [facility] Lymphocytes/100 WBC Auto (Bl d)Ordered By: Wendie Casas on 12-03-2022 Lymphocytes/100 WBC (Bld) 29.3 % . [facility] MCH Auto (RBC) [Entitic mass ]Ordered By: Wendie Casas on 12-03-2022 MCH (RBC) [Entitic mass] 30.7 pg 27.5-35.2 [facility] MCHC Auto (RBC) [Mass/Vol]Or dered By: Wendie Casas on 12-03-2022 MCHC (RBC) [Mass/Vol] 35.1 g/dL 32.5-35.6 [facility] MCV Auto (RBC) [Entitic vol] Ordered By: Wendie Casas on 12-03-2022 MCV (RBC) [Entitic vol] 87.4 fL 83.5-101 [facility] Monocyte distribution width [Entitic volume] in Blood by AutomatedOrdered By: Wendie Casas on 12-03-2022 Monocyte distribution width Auto (Bld) [Entitic vol] 15.49 % 0.00-20.00 [facility] Monocytes Auto (Bld) [#/Vol] Ordered By: Wendie Casas on 12-03-2022 Monocytes (Bld) [#/Vol] 0.6 10*3/uL 0.0-0.8 [facility] Monocytes/100 WBC Auto (Bld) Ordered By: Wendie Casas on 12-03-2022 Monocytes/100 WBC (Bld) 6.9 % . [facility] Natriuretic peptide B [Mass/ Vol]Ordered By: Wendie Casas on 12-03-2022 Natriuretic peptide B (Bld) [Mass/Vol] 10.0 pg/mL 5-100 [facility] Neutrophils Auto (Bld) [#/Vo l]Ordered By: Wendie Casas on 12-03-2022 Neutrophils (Bld) [#/Vol] 4.8 10*3/uL 1.8-7.7 [facility] Neutrophils/100 WBC Auto (Bl d)Ordered By: Wendie Casas on 12-03-2022 Neutrophils/100 WBC (Bld) 53.0 % . [facility] No Panel InformationOrdered By: Wendie Casas on 12-03-2022 Estimated GFR (CKD-EPI) > 60.0 mL/Min [facility] Creatinine Clearance (Chem 138.43 [facility] Nucleated erythrocytes [Pres ence] in Blood by Automated countOrdered By: Wendie Casas on 12-03-2022 Nucleated RBC Auto Ql (Bld) 0.2 /100{WBC} 0-0.5 [facility] Partial Thromboplastin Timeo n 12-03-2022 aPTT Coag (Bld) [Time] 29.2 s Normal 25.1-36.5 [facility] Comment on above: Result Comment: PERF ORMED BY: [place] [address] PATHOLOGIST DIRECTOR OF RETAIL ANALYTICS DM MCMAHON M.D. Performed By: #### C BC, BNP, HS TROP, BMP, PT, PTT #### [facility] [address] [place] [address] Platelet mean volume Auto (B ld) [Entitic vol]Ordered By: Wendie Casas on 12-03-2022 Platelet mean volume (Bld) [Entitic vol] 8.3 fL 6.6-10.1 [facility] Platelet poor plasma interna tional normalized ratio (INR) by coagulation assay (relatOrdered By: Wendie Casas on 12-03-2022 INR Coag (PPP) [Relative time] 1.1 {INR} [facility] Comment on above: INR Therapeutic Rang e A) Pre- and Peroperative OAT started two weeks before surgery. NOT HIP SURGERY: 1.5 - 2.5 HIP SURGERY: 2 - 3B) Primary and secondary prevention of venous THROMBOSIS: 2 - 3C) Active venous thrombosis, pulmonary embolismand prevention of recurrent venous thrombosis: 2 - 3D) Prevention of arterial thromboembolismincluding patients with mechanical heart valves: 3 - 4.5 Platelets Auto (Bld) [#/Vol] Ordered By: Wendie Casas on 12-03-2022 Platelets (Bld) [#/Vol] 231 10*3/uL 150-450 [facility] Potassium [Moles/volume] in Serum or PlasmaOrdered By: Wendie Casas on 12-03-2022 Potassium [Moles/Vol] 3.6 mmol/L 3.5-5.1 [facility] Prothrombin Time INRon 12-03 INR Coag (PPP) [Relative time] 1.1 {INR} Normal [facility] Comment on above: Result Comment: INR Therapeutic Range A) Pre- and Peroperative OAT started two weeks before surgery. NOT HIP SURGERY: 1.5 - 2.5 HIP SURGERY: 2 - 3 B) Primary and secondary prevention of venous THROMBOSIS: 2 - 3 C) Active venous thrombosis, pulmonary embolism and prevention of recurrent venous thrombosis: 2 - 3 D) Prevention of arterial thromboembolism including patients with mechanical heart valves: 3 - 4.5 Performed By: #### C BC, BNP, HS TROP, BMP, PT, PTT #### [facility] [address] PT Coag (PPP) [Time] 12.2 s Normal 9.0-12.9 [facility] Comment on above: Performed By: #### C BC, BNP, HS TROP, BMP, PT, PTT #### [facility] [address] RBC Auto (Bld) [#/Vol]Ordere d By: Wendie Casas on 12-03-2022 RBC (Bld) [#/Vol] 5.49 10*6/uL 3.90-5.60 [facility] Serum or plasma anion gap de terminationOrdered By: Wendie Casas on 12-03-2022 Anion gap [Moles/Vol] 11.8 mmol/L 6.0-15.0 [facility] Sodium [Moles/volume] in Ser um or PlasmaOrdered By: Wendie Casas on 12-03-2022 Sodium [Moles/Vol] 139 mmol/L 136-145 [facility] Troponin I High Sensitivityo n 12-03-2022 Troponin I High Sensitivity 2.8 pg/mL Normal 0.0-20.0 [facility] Comment on above: Result Comment: PERF ORMED BY: [facility] [address] [place] [address] PATHOLOGIST DIRECTOR OF RETAIL ANALYTICS DM MCMAHON M.D. Performed By: #### C BC, BNP, HS TROP, BMP, PT, PTT #### [address] Troponin I.cardiac [Mass/vol ume] in Serum or Plasma by Detection limit <= 0.01 ng/Ordered By: Wendie Casas on 12-03-2022 Troponin I.cardiac DL <= 0.01 ng/mL [Mass/Vol] 2.8 pg/mL 0.0-20.0 [facility] Urea nitrogen [Mass/volume] in Serum or PlasmaOrdered By: Wendie Casas on 12-03-2022 Urea nitrogen [Mass/Vol] 12 mg/dL 7-25 [facility] WBC Auto (Bld) [#/Vol]Ordere d By: Wendie Casas on 12-03-2022 WBC (Bld) [#/Vol] 9.1 10*3/uL 4.1-10.5 [facility] XR chest 2V*on 12-03-2022 XR chest 2V* [facility] [place] [address] [place] [address] XRay Report Signed Patient: Rickie Oscar MR#: [id number] 49 : 2000 Acct:[id number] Age/Sex: 22 / M ADM Date: 12/03/22 Loc: ER Room: Type: PRE ER Attending Dr: Copies to: Wendie Casas DO Ordering Provider: Wendie Casas DO Date of Service: 12/03/22 XR/XR chest 2V*: Chest Pain PA AND LATERAL CHEST: CLINICAL HISTORY: Midsternal chest pain, productive cough and congestion COMPARISON: 11/02/2016 There is no focal parenchymal consolidation, effusion or pneumothorax. The cardiac, hilar and mediastinal silhouettes are within normal limits. There is no vascular congestion. The visualized bony thorax is intact. XR/XR chest 2V* IMPRESSION: NO ACUTE CARDIOPULMONARY ABNORMALITY. Impression dictated by: Suki Griffith M.D.12/03/2022 2:13 PM Dictation Location: [facility]02 Transcribed By: LIZABETH 12/03/22 1413 Dictated By: Suki Griffith MD 12/03/22 1407 Signed By: 12/03/22 1413 [facility] - Toxicology Resultson 0 11-01-2022 Lab - Toxicology Results [id number] [facility] Triage Industrialon 10-30-19 Drug Screen Complete Collected [facility] Comment on above: Performed By: #### 1 [id number] #### [facility] (DEFAULT) [address] [place] [address] Coding Summaryon 10-26-2022 Coding Summary HTMLBase 64 UqwchenrKYq1lFp+PGhlYWQ+PE [id number] XQXSXRNPQV9AQU9vqGR9ETpdF3 VybiAv XqlhuDInWJ98RQv4KSN8sThmZM qmnF4noKWzM1c0EjEpUL33jH42 RKfgVEOeVrV8LrBalwbkaMQa U5ugXmFkiTTpIej+PHRhYmxlIH jqZCLmGSdhHIRmJjYuyOqnLK8c Ew1nZWZkFOIlnJnyeANjZkNt l0gsQRZvBZnnIE8msBfsL3FesF E1EOWzx7n3Cr25aFA+PHRkIHN0 hQnwNImkw905QzQfr7laYSG8 kSPlZBqqQCM4U15ls9B3NYAvSR OgLQI0sFF6dF8wwYuirpmlQ4Lg eCEvXiL3DLK1qILsvN7klSar xniqvH2kUme+Z61IUG5KBYGEBA 1JNdx0F5BqVtxxySF+DZ53XLCu VU18eMLjpDEwb0krzVw9OxBc UVDaXFU1xYpyTAexc4JlZYSkW4 2zrZIcs1W1EDEyfIodqTXjJqJy bKS3vR9nVHrxmhljn8biwehj Jirwu7nzux15wY69P19dHEzfJH UaPZP5NYTgTFZvbAeuog7vsI8v Ii8+VJauv2acu6peyKm7AeKo ZZVkhxIezDjnBIS8z3RxPi61T9 DudHqlz9GbVtm4iu43gCOav4E8 hUN6SBrfSRTdjK2qUVjgXyS9 XOFdEyUgeW74kEDsRUoePk8pbB aqjFceIG4cGEXnmgpuVAAhzO3b AYFvyMXaaGmqVR6kFQFrwwyk f788IkShKXX1EPAvoGTsY1FqeD 9wWrKtYCSiFPPvA7WbgCFoPBkr F299KNptXbR2ZVMrsmOmI1Tl XNPowMeuOgY8k3Q9Qn1Wv8Nyuy yqBSK9UEnmGSGzBnS8YwEaUtC1 B0TjEfo9TIRmdAvqHY4rN0Zn ENJhtunirfmgsZG3ZXAgQERwiF 71uJLcMDprSd2bs6F5l433FMVv QTGoiO11Fj0hjCmqTJFsaUNK qW3grinjy9suosplVbXvXZAvWN u1UXi0FQIxiRqeUmEfVTM6TsD6 RAV4dNVqwR9wgJrfxdqgvT8a Oyc+S41hqI9nGAJ3AAM7iyzhGW AcxcSbTK68PY67E0DoBqqlbYQx bGU+GLYpyvZfoMtnYE9jNwBc j9rhi6KsZVikB5OwBWOgBCteZx y6XZRuACA9wVN4wW3vKDVmJDee g3L8lXN6L7XpopRspu3ve4mp BIWrXWasW80puQGjy3P4XSBleF G7RKYpuFttGaJasE94Adp+PGNv yJksc5PsCxpbg2nyu4vdpXb6 LrPzKBLpwcNyjPcfQUH3k8IlPo 05G51sDZavPYZeHKAzVXVfGPUl fOpyvu6ysO2uBu1+PGNvbCB3 dEP3qG3sLBVtRzY1RXvwA992Gc VtqXMxFbhqj7fts3ryxHu3VpXl UHKgyaUctBdkBRJ9i9UsFr43 U74cQMymFRCmLVLfCTLgOKQdjP ahzn7suP4lEf2+CL7wx4ioii09 xL08sFA+CGZrVDH7kAswOKzb MHFmeC1tZAxcLnJ4RQFpCdScnZ 28yGTfUOlhHp8uaQusvNffBD0i KICmvnqdx224QtEvu5ecGWCq yUMmITxzTJF0V24sa4I3EMJrKT XrNUG3rDJ1bQ3eeAxorfbrnOBz uHncwrKlnYwkLZjbWVolU994 IHRvcDsnPlBhdGllbnQgTmFtZT l0Y1YzVkk1KGKovTlgAL8boTBk JDgtFv6lfRkyyQklKB0fFCNw exduf605AmXqa3rhIGEigKRiHT hrGSX0H05jx1W3WSKlELBqEHJ4 gAH4gX8qrJqeeaxbtPDkcEze sdSfkOvcMTyrELgzF611QUAldN vpPzZtouZtKQUtrBE1JJ23KA32 dGRwq2I7kMO8W0ZrKTLsqucx bunhkME1RNFpWSNnsJ53Uf6ijC zcYt3wEJUsDUV5JCSjkPChU0Xg bB0lKfVhYTJsRKScJ6XfsUUi VMikS112OKjdZiN9OUJohoBfU9 TiCOSfePzbYzR8y6Q0Wr9XD0I1 GG32KR91hHQzf1P1pQE7J6Yf RRBpsarxuveucNV4NTOdMOGfnF 83Fi2cyXcuPd7zELVsHPP7SFIu wWMkA9QusL7fQlCuYPPlVEJn W5WnkITfOTnmL045OYzpOqH9WZ UdrbNnV7MtHYMftNfjNfH7x0S8 Ov0ZRQp2KH40HL57bBQoo1E6 iWL5I4DwRDEfriqaxwzlfJD4YC HwBRBnzF06Yz5gpPzjFn6nLNKj WQF8GJHbcGYaS1KsdI2lTfWk CBWrPEZcR9BgmHCaTAsvM399FV cnOwI2OMEtbtMxG2XeODJxaNke TlM3d7S8Sh4LZFNoQW14TEK5 uLL3FU04SC43Y4QnYqbibJTuuZ U+PHRhYmxlIHdpZHRoPScxMDAl GcVqqZqzGO2yWn2zGWSaUZDs qFcotBEmCyYtl6twATBaRWkoFW 0lhRqqJ2HlrMX8WDZbd8c1Lh66 D31oK1ZuoDZ+WSJpwVS6iPE3 mF9pVyOwVmP4DQxpN975LlNgbX DaNsiow0lbl8xukFn8BhB5LIFz bwOeuNfhNDJ0t5GiDd91F54p IHdpZHRoPSIxNSUiIHZhbGlnbj 4gpL6rQf6+DJMkiPE4vVE5sZ8a OwEhPbA9NZztV371RrCgxMLl Nmcie9dsx0buwDy3PoQsQAInmx LrfZbkEXV7h2DqJd46F7UgqMum c4BsStr4ga90sFXfl4E0rEX7 G2KhZOJlftddlPMemHbuGW1pWX OihsclCCEcxL2qBBHaH9h5DsAj HkC3YQehR4JxxqS2GQOkfWQs IRgwBJE3O77oc9J5ERGpKAUxRW J2pCM1eT4xeXrxoclcjNYqhXmm lzLxuAppKRxrMIgnG070WVVe uIanZXIdoX2yTLLlqYQhvTcgSW 4wNTBpbjsnPldFSURFUiwgQlJB PGFXMnDZGAwXKrH9X3LaBsz5 OTNayMlcWS0uqOKnNZwyVq5hvY olxQltSK7kFBHcixszBNTdbB8k QTCimUZviAssJX9jDINbzhpz z458KgPeAEZ0CXZlsHNcF1PyxZ 9aXlOrSRMzCEFmZ6NgjVFlQHxg S455TVwzKvR8VPLizhQyR2Hu PGDjdIuyRxU6u3J8Pn4dVY9aBO 7aCZRgPA15QC38hCByz7O8oCC9 T0HoKLTxjqzehasirTT8XWWn FCXkzR04wJXaWNxtFt0zd2V4i8 47OXEsBPGdnK67Wi1asCctDGJf vSGFhQ2gmrwoi9irlklnXxNp QAMaMLs9QJi4NXCkgTkuFoXnOG A5TgY2NCQ3aVNabQ5zmDyplgsw qK2zAcz+BeEeRWExgzS4M2Vd Bqy7ONVnvCxkJG8snOWgPCrqSk 2aqUnyvTzyFC6ePYYttjddRRNn mQ8tYDXxdIHhrVxhIU9jKQNh tkxth206WoAnFVW6TFDcrLQpK7 CpeV1rDdQxKTCjOMCoC0FxeQAa GEtpV978AFzhDvI2YLVosgLz R6BxWSLjpZxqVfY2h8B2Lg0THW hEWM94HE74tSTxv2W8eUU6Z4Ph NXOqshhhfcpaxTL1GJShQIAv mI46vJYoTCusCa3or7O3y037AU AdGVVogY60As6xlChnYXVnzBDF rH9wtckov4ylhftqDhLvIWJw VBp7AHn7WCLsxEbpGkNwWPG1Ok Y1LBC3oNOobK8ecHdlvrenlC9j Oyc+R1P1C9ByDsqvwOI+PC90 OYXnJB78rIJxnPIws4ytfJn3Sd QmNPDhWQL2dDowLZpsz2NpERJr D25loBQlw9I2QRFkfUiruSKq GmBsxSZ6zS2jFDlxaenya0szgp rjTpkxs1awbe75kW51S44yGZop CTBqOQAmSVYyVKMvlLxutd6k fB7aCk3+IURcwTU9zYT4mO7wTa IjPsO6VJxaR311MwJzgEKkOjvc b6gvk1dwfVw5ByWyWKEmuwAk uOqgGBA0d2GgCq99M19zROjfSY ZgCCMcLCKgYYOdpFtrjk0xuZ2s Ii8+RI6on9bycv35cZ04gLH+ INEhAUB2zSeqVBomYZQzzU4sBZ yePpB0YTAwIhXtvC68bSNpITmh Xa3emMlzuWfqUI9oJMQgngve s275DxPko7xrKEDxjCUkDBtlVD K2I82xf6W9TKDsGYSwXWI9cHI8 nF9zzVroiqmypROikIqkfhQi tHvnLBeiCOasH341RNSuzCveDb OpuDUbW2nchhHIUU2gSqpaoMK+ WJVxQNK6hHkpJRrrGXYdyX9c QQWpX7a5CdVqYuC2VFvyJ6Hhsz S3KXIhiHDuZEBcwZCJaQ7zunnu a9jzdvlmQaYdGGReFTz7VPy1 SEYojInkFyGfYKJ5CaC7RBN2xK UdiD6ltTvrgpppxB1aLbd+RklO OjwvdGQ+JDAnDIX8wVnjNSar ZUQpwC5jWKCjO3t3LpJpXrA6WU gvU7QnysX9WXJggMEcAXXihBIF sH6smrmno4tatsjxYcHmXDSg YPq6GAg4AHIkaGiqHyOqHYK3Bq X3VLD0dFAviW4edIzhffbexT0s Oyc+TVJOOjwvdGQ+PHRkIHN0 kEuiLIxqNEWuoH3vCNMdM6g6Ow UvBmU2FFjrQ2KqnkJ9ZGRohGTd POSyyHGZwX9wvmrzr3wdzsia CmOdLOAcVVe2WHi4QFLhiJjaCa ZkSRG3JlH0WMG0zWShmY4sjBii bpfyvZ6tIsm+KAG6PQU3SQ23 TJ57Q2KzTmtryKKoyBE+PHRhYm xlIHdpZHRoPScxMDAlJyBzdHls QL9mEy7nGUVoHIKgiNzbnMHv OiB (more content not included)... [facility] Coding Summary HTMLBase 64 OevouwwnBYf7yEs+PGhlYWQ+PE 2HXOMuS67kmYRlxT9CH0mWMY2O LIDWTSYSRO8LXL9vyEX3MLmeK3 VybiAv KopeiZGyDW57AIk8POA4xMlwKT gbwY7hzFBvC6j2LpInGJ59sX37 CFmvNLTePyQ6GzJfvvidyGWk E6igQfNpfHEiYkb+PHRhYmxlIH rdHWOdILybMOEbHyOkbUmcTO7h Ca4hCJToQZVaaRlopFEuBeIy r3unYYNyKWwxGG7uxFarN0TovS L6PZDbz9z9Ng98fTL+PHRkIHN0 zOmiJHkqy330IlEgf1giDRM9 mRRdUXldODB8X87cb0F6OVBfXB RjWRV0uHV9gO6jbQbltmwkF7Ho uSFoVrG5NOE9wFXrcO0ryRwd gsugyB4eElj+V38DBE4ULGCYWA 5TNdn5V4XwPxbkhPM+PO92WYSr IO70oEWetTNte0iooMh7FlHo YFVwLEY4kPygRZnwo1YtAWNfM8 5pwGKgz0S9MCTmxFxemLJqJbLg dBR7iT7wNSwztoxra4wqmgcy Qhtud5usjy41gH07O79vGKvrJT QrXLY8BVSbPLPdxXcwtj5evM9w Ii8+ACboz9wnm3stvQg5YfBv NWThkaHhxBpoJOX6n5FqAi61V8 IwqFajs4SzWbq0ax60rOOxy9U3 uPD4NVhxTBAbxJ2zCKhsGyO8 QWKmJwGjtT10sSSeUCocTk8ugV rqiJydZA8oMNDdtlglBIEjhQ4j BHYelJThhBhcOF2eKPKfqsgo w289HrSsRCD5OTExxGThW8UrfU 7mNzXqIFAbFMDeU2HhxQXlMQzl K584JQizTzM1KZQqxbQwS0Qq QCCzoAouXtC0a6M8Nr9Vl8Rydf jzZQJ5PJtdJMDeHgC5AbGmSvC3 M9SaHrc8AFVelGbnJH9qM6Xk VJEmavjciuxlnLW2KTPfHLSueK 94yECiQIjgBb2jk6W6v900DJYl VSIhsE85Yu9weIybMGWojDPO jR1rlnape5lvgoqmHfAvGLRdGG s0VLg5KYJjySvbKbPvYOL7VtD7 LVA8gWQkcK8klEqypjetbH3p Oyc+K69apF2rQAR9CSW2zakmMF EeotOoCS66PM53I3ExKstgsLTb bGU+WOZsznDwnJdjZU2pDlUz e3vju7FzJVgmQ5DyVKFcZHbnDg r9TLSmOUB1vFA8dF9dERNeSOmf n1I0zQO7K4EzjsDfmo6ny4sl VQZmKSiwI15foWJln2V2JFUuqM C7EZZsdKycCpJriC08Bzu+PGNv cSnwq9XyNprro4fbf7sdcMf4 AbKpOLHcteOifFoqBSA2a8OjIt 73A11aMKvzONHvNYVeLEPqYYYh jEgmmd5oiA1eBu1+PGNvbCB3 kIU4xY1eQRGkSeQ5VHnlB866Vb AdaAZtIyqpd2nmj0ojoRw3SmJh URCrbkHkzIxhZWO3t3ToWr42 Q83uKHxbBARjZMKjMEZxERQroC ayxi7tbH9jEk9+JD3dp0ykaj25 hK85yIT+CKWoSKT0fIbnGCtu MWExfM1hHGfvTvU7KZWnWoNoyK 10tQPuNWriUn4ehXttjDojRJ4t NNQgasdyo708WrXbd9rcAJXd cLZvZFbyZXY4P74zz8X6LHRvWV GeBTL8uCI0mX2loNhuwbvceQEf aEhliwOsaIhvIPvwXOfrR133 IHRvcDsnPlBhdGllbnQgTmFtZT g1J2TkCib0AQOhuXduPA3vhTDm IBvrWu9vkEieyHfuTY3qWTOi hqnct276SyHgd5knJGInzIHqUL ygGET7U90hw6L9DNRjGIRpXGK5 zNQ0lI3gsNwhdfuooXXqyBkv avYznQgiWRbwQKqpE185QWSdcW pyNhOqiiImGTGdnVB1EU46AO63 oYSkg3V0zEI6Y0KtHGGhvayv dopriXQ4TAOkSLMsiH95Vp6zfZ deWt5oZCQyWZO0WKEibOOhD7Mc xB8cIzBzIZDnOCIoR4QfjLUc HDvoB079SMxrRmU0DCOnrbIxA7 OwZJUszNwyMyG0b8J0Fz0ED3A0 WR09AJ37iDYzu8X7oWN0W0Lu VTCsjhoygcxxxEX9RTJdHBKksD 97Fg5rkXonJz4aYPDvSUF4NUBf uRZxW6TtwW9pViCaEPBaLIRx W4VuvDPcSTfxY815ILllBiJ9NQ XdlnZyS0XhBFVhdJyyCdM3h1F7 Oq2YFWb1AA53YA31xCYpj5M1 uBP1N3PfLSRyzhtgtzfnjWG0GX LeULEbqA86Zg9umZajSn8bVHLm PUA5FQYnbPFiJ5XxkD9iQnDi IATgBILdZ3LviTRnRKtnO278NS deNgC4UTFwnoMwR4EhUPWjcRvw UhX6n9S5Fv6EJLWgKF96RXE0 kAF8YW08OH66G6CtCqiufYSxqL U+PHRhYmxlIHdpZHRoPScxMDAl IpOqgHqoLS9cOe6dWAUtVAYw yUboyABzEmLfu8pxHQTgAHpeFR 9mqHzmH0LluEB4NLDvk2u2Ee59 Q42vV1GtwPB+MHOtqDG7eLA1 rJ8sWuDwFbG1XLdaP686XhOreY QdCbbms5eox7upfCj5IcS7GBPy zdMdpWafOCW2c2TjOq55I13y IHdpZHRoPSIxNSUiIHZhbGlnbj 5fzN4xTb5+FJPrnYY3wWO4gT6v JhQdQgP9BWloT054JmXimTEf Melfg2vwo0fgfKg3DsPgGWRmtp VedColWCZ9m5OgZq29U8RlrGvf f3MyIzn8az12rNFfd3H5iNE9 K5MfYAKvwknjzOPnlGvgTA1zYP HnzxsgWUPdjS0aIJYiO0l1IjSe IvD5GVprG4QnnaH3IZXguXTx XKdgBAZ6U17gd6B6FLGhEIYzZW I6xTU3sT1uwEwloqndsXDfxXdw cyCvnGxgXBodPQueW750QFHb hDbxETRcfW8fEIQqvZUeaSymGL 4wNTBpbjsnPldFSURFUiwgQlJB RGVSUpYGEZiIEaI3T8QyLxs6 HZUcaYlpJS8hnSBeWGtnVo1dnE uyeTidCB9qWSOcspxxVNSdqF7u XCMkxJTusYdbPK6uZCEcujsg x847ChYcLGF7KPXkyOViT8OgrV 3kRvAbOLKnAFVyE0AipAWvTFys D387DAztPuV8JHBonkGuT2Ca CCGgoGnqQhZ7k1F9Uq1sSP5uZL 2lSKMoRM34ZD93jEFio5G8mCV0 F3KdKBPkcthocerukOB7XMLq HIEomV89zUSvNYycWf9gg9F6y5 74YZSlLMAxnG69Dv2bvIsdACZn jDAFeS9xtvtht0perxctOdQm BJXdOPf4AUz4CPFxmXgtHoTxLZ W2KnR6YVI7tHCgdH2ozBjtaodt tH2kKqr+ShYuDFIfcoX3V6Rm Bvq2PDXtzSmgEU8fqOFtCWhsDh 3zuHvngGmuEP1eTWHarsgnIPCs nQ1yMNBzwPAdhCufHU3zPBZu fixqd597VwXzSSN1FGDmeTBaD4 AqqO3vBlQwSXPmDKQqY0VmiFLz DXteB447YNlnLgQ0DTOaykJa I6FxKWUgwWfgVqL7m1L8Tf6GSD gGLU66AV32hZOis9I8tZU3Z7Xz FAWomfvadpfalKP0JZCxXZUx xB90wPNoNEayPx3pp6K4a519UJ KjPVYneJ04Kb5vwAwoGMHpoLCI oL5rrnzzl3qlkevtUdVxTFRy LAj7KJe5NBRfvMhwGbEiKGS5Kn X8WKN7tNKfjW3zwSlpemdooT2u Oyc+BC0ufmtuezG7MD32DJ71 E2TuMaepoQQngLZ+PHRhYmxlIH gyVCDvLWifGGWsFbEafRfxQQ2p Bi0fTOVbNHGyoFlmfLEfMwXc f7rqXPTiZEbhPA8vmYniP6CuaA S5ZTGbi3b5Ye19D59hU2NupUD+ HCGuiGB5sDR9aO7pHoFuKxJ7 DDzpM348OxAiiXOaOnqzj2bfa8 qlyXo2KqKiPHCdzyGvwNlwMYE3 t4UsWy48N11zCUzxLZLuVCDi ITElONQpbTtghi5ajO6wJy3+PG WuvVU6yZX1rO3kMkVdYqL6SPmc U450XoDsoLXrCvczF11rF5Vk dXA+RTOuVgr0OOKktVquBK0mgM VmCSfeQq8mAAZ6DwSeCeOfQWnj C9HlNMJjnuixogsixBY0BMZs EAItgX23Xe0aaHacQs0gJLQnLG Z3NCLntWYoF5SlsV3qYtFdRIJv RWBtX7IpuQEpNKdlO393RZsk VmV7KDKxcbBsL7RzZVTqwYqwKb Q9z5J1Gi8TePhgtQScXI0sDaMv CDd8B6BuXro5KILxmShfTI5t aZZrMOtaHz6kcSkauFehEV9gYF Wpeynbi341CwSpc4djGYTthFVc FRhyEMO5P37lb5F9LQJvXNVq ITB0tET4iZ8voYbzpiqoyKMzrX cktbUpmIjnSWikBRtyE163WYZh cGooFiUGJlx3S7LkOja4ERMl pEspRX0gqXVzZDnoQz8toGutqT cyUH9tDHUhegjms349GhQpx7mr SKEcfKDwTGqwAUX4R45mk9I8 LRMsCZAdJWR4jJG1oI6roCvzxq ogbGVmdDsgdmVydGljYWwtYWxp H282BRXzeIxfAg9OCad6U7Fq Vki1KMAbhXwxFC8joYWfCSdbLd 3afRmioIutBN5jTHKbkegwh106 DfBgi4prJZCobYUnHSqiHZV9 Z50kk0N3LBLyGPFsXJS3mWI8zJ 1hbGlnbjogbGVmdDsgdmVydGlj BSigMPodS972SBLudMscApCz eWVyOjwvdGQ+ME53vl28R6WuNd ykEst0RZOaQVZ9qPI1jO4qTNMg FOldf3W2sSB5F5SitvNyah0q b2x (more content not included)... [facility] Coding Summary HTMLBase 64 KvpimyyyJUw3dJi+PGhlYWQ+PE 8IDPIqF77afNSmiA9BY8sJYR8O QZJWFKOIOL0BQR7voUE4TPnwB5 VybiAv FdpmwCJgAE91GVp8CKH4kIzlRE mgnS5faJEtG6r6PiFcIQ02mD10 FWcpSMXzUlW1VlNnxslmyATv P7sdDpUsiOQkFsk+PHRhYmxlIH sbZTXuUJwbVHDnStTxxVxhYK6f Mb5wWWObLCKvbEqydIFdSaCb n7kdUVUiEWziVE9tyAakZ9EdnQ Q4LEXfp6t3Nj59pCO+PHRkIHN0 lYqdIFaux541UxAxz2mjDMS2 pDCtRYoxVCN1M57wt2Q1EDXsIK XlGHI0aZU8sL5xhSmlbkxnP7Vp tXPsDhI1QLO3eEXriJ9qgPsb pscsiS2oXmd+O62DTQ5QARWEJG 2SHwj1J4ZbMueohZO+KR10GSRm YH51xDPevVKbu7oycZm5SlDa UYRuAAB1nButWTynb9AeMZRdD6 6ckJOxf8O8TICrcTmdmXSyBiGr pHA7nE1wPGcesmijq2lxhgnw Yjceu4dlxv92aR01H62sVXhaGQ GzBBP5VDNrTCAusZjjjf6vhP5f Ii8+AJais9qve8jhiVe7KaQu LJQgybLvuKfpISX0m0SkJc76X8 XnlIrqx2AvVgu1kq18kSFol2H9 gXS2YMyxASAjeR5qFGurChL0 VSOvGnElcQ90fSMzPCufYh0erB kypJgvQF6rDMUgeluhDUBwfE7h NRGusNZddHwqEW8fVTGpqkvh q674TcDqMNZ7VWHufNFgW7StwV 7wUaNvQVTbQPXxX2UtlIDbLAla W220ZPoxBfC1RSXmicKmE8Pt NXUluDzxYzR5b8L0Rs3Eq3Bdwo wsTGI2LDmgVEUvZxL4UoHsAaP2 R9IuOnu5RHPukXsiFF4xW0Tw TVRwbjhuoblriUS2NPGtQLYhvF 40aNMhMMakCe0ia2O9s367BLPn SUEwtB88Oh1hyAjcDKLiuGLB mK1vqhbzz4vlhafcLiAoXTJrKE g1PDr6DQAddYpdToNmPMI8SzS0 SRB3hKWkfL7vlAebqdlgqT2x Oyc+K19vdO4tGJT2GRN7pdxyHZ XllvZzET71JX09S5GfVqktdFUt bGU+GNHipuPyqQcnMC0zCtSm e4rno7CrPTyjP5FiHBChYOipEp b2EIUgMXZ6oIH1kU3pCWZwBThe g3G4cVL8G3EzhgNewd2kl8bs COXfJIksY97xxDWyz6W7WPZfpT S3CGMqgBffNtCeiY97Kzd+PGNv aNezr4CmLoouz1acc3kdyIq4 RpSpORSboaCglQhcZTN8a6CgNq 93D24fEJxcRDSgVJXxNTHvDRXl rUdapq9srS6qVs7+PGNvbCB3 aEJ0cP5iYCSfBrL4JZpoA958Zr DpbCCsYshmw1hxs1ubnIy7EvSu VQRxhxPwcNuyGCE6r3IoYm15 W90eYJebZCSiRBAoZYRrQYDuoF amsl1luS6jAc1+LH1cz6nkil65 cW92hBK+KRGjSXQ9xZyuZMxc SQHdwH5vEPrxJaH0TAGzGsAatD 77iTTqLBilGi2hgVgxlAigYG9g FNTgyxwpq581KcReu1pjHHWd vHSjMHzuUZC8E05yj7G5PPWiIH HiGSW3kZT9rU0giXyoshyfmODc kKjcimWkeIjwXWpbYPsgL215 IHRvcDsnPlBhdGllbnQgTmFtZT n2N6NwFyb2QGOujOdeJW4mnTLx LGvkGh3fsWncmWxkNT3mTNRw sjlmg588YzXpq0ibELHghFAiQV vtVRJ9E99to7M9KSAgHLYjVTS9 lPJ5qN5eeYlmflahbXOgbOkk yaMomErkSIcrDJqjR310KPVlmG egObTbkrEcLXHzaME0SW15VU35 xXHbo9H8fCB5S8PiAPJtklcr dhzzwHR5IULqXQThjM97Oz6ymZ bvFt5rOFVoAOB3PPCdeBGuK7Md yQ0zKlNgFSHqYLNgI2BlcEHh MMfpE063JHrvEuT5IIMlguEhQ4 ZcIRNflZbbDiL2h4H1Gl7DL4B1 ED80DX45dPZjl9J2jND3V7Dl KIWfohppzfwvpIM1DBVzZKFxhP 67Qs0diMtcCi8qIMOiOTT2SNNn yDVuX1DkpX5lLzPwYXCxYPFq J0TleGWdXRhxS423UToeZsM7HS MsudFkA7LlULHmqAzyHgS0c4F4 Se5GRYn7UB00LO40zOZhd4O6 lQZ3C6DhMRNkzpsywqhibDJ9PQ NkHPPbrV29Uk2qyWklKg6kVEXk TUZ0SHUpzERiY3TlgN5hPsKu ADHuYITdC9FqvUYaYZbvR129ZV xxGwH6UACrdgEyG3XoWKIgpXyr HmX7t1E6Bj3YGFBwXD60QRI2 aQK8OE24KM31M2QxShzloLJjbP U+PHRhYmxlIHdpZHRoPScxMDAl HpRksBppNL7hHk3uSHNzGPUw jRazfZTlHiDbf4ofBRMeZElkBE 8iwQbgK7QpxDO2BLJkq6c4Fa31 I51uB9TglNT+ISKcrHG1mLW0 xG5xJwPcWxS4UXcjN424IhKnlY BzJzrkg6iqc2jroYw4TeL5VRAe tfGkqBduYUZ0c1CuQv11Z99r IHdpZHRoPSIxNSUiIHZhbGlnbj 4tzC8bHg1+XYLwzIT8xHN0bX2l VqEwXxP4IChlY338PgHfiBAl Ktzyx6uvb5swySu4MbHuAPIvax YmkZgeFWB9a0PwEc11Q5DqwQtu f1GeFcb4ce28sKGyg7Z9gYE6 U5HsEIKasfzchSNflWljHJ7aBS KlpqxhCKBfiY7iDGZyN6e3KjZj SnG6VHyvS0SrahU6YYNhzUVg FMhfSMV1E65fa7X2BRQqUNFjPU B4mRX0rD1eiRvemidarPHpsTrg wqJzvWitTElcIAgfP860ZAGx wOahLXGdxF3oLGFarYMxcApyHR 4wNTBpbjsnPldFSURFUiwgQlJB AXCAQqMSPXpPFhZ4K1NgRwy3 BSFyoIebEJ4apMFeTLnaIw0veK hbaIsjOU4hSXBybuqrTBLewX4u NILowAJfxVgjAG9iQWRdivsg m671KoYsPHN8OBDrmQNtY4YqfR 6wWcIrFSRrHQSnK5BhhCMuWKxi J961ALnnTuD8TIOabgKsT4Nz WBRnpNfrIdC8r0U6Sj3sQR6lLN 3kVCAuDI68UM70iCYvx3A1zLN4 B5PoHZSfhordviknrUT3HFEo PFAezN52gAVyDLbuGy9cr5P2a9 20JTUnFZEdjG90Cm4reAseVQCu tUSJrZ7xbhimj0apelaqZpRj POKaUWt2LZy8LAJxiFxgXcZaLB F1TzY9DVF1xHQcrT9jhGgmhwuj qJ2kYib+QtWxBWIujnD7D2Ue Zbt4WNAatOndNB8gzXUnCZvgBi 1nbYtjfIdwKP8gSMAqffinDIBt uA2dQCUwgOIasGnhIZ5jBEKo ijwqg451JyOoWZT2AXWvzVLpA7 NipK1pUqXiRNQlNGNcO9JaxMXc ALajU332ZAdmVbH3MWJhzgTs C4MxRTTwzAinLwK2z3M8Hv7JEK kUGV46NF46nMMol5W3tCU3P9Nv SNGnceyztxvfxUN6QCEiPHJs sG59gDXoSUcjIq5uu9J1u408CD TsOWQltO37Nj5gjUipPZCfuGOI xO7jfhoxd4fkurwbNhEhYFXl GNl4MYa0VRTikGctEtJlZKQ2Gk N4MGO9mEIpaJ1ldLtdegnieU8t Oyc+LJ8subyrxqU4GL72WR13 Z0NmVunqoERtpQW+PHRhYmxlIH xwQKMcVMxhOKSkIuEtcDbeLW9o Yu6tXPZvDCCmaElkgVLoFeGb j2trVOTpDVrhDI2reIyjP4SptX M0GDQyg3x7Pr17I43hX3QuySM+ AJGdkYB9iHQ9eH0hQcIeLsQ9 BCxuM520ZoKadUIxQcddd5qfm1 lxzHm8McNaMTBxzcNplJuzHSQ4 a0AoPn21Y14sMWygDNTcYTYr AVBjLCCwrPyxva2csA0hPq5+PG FuwUQ1zVX3uP3dMuFzLxS5NWet F017PhFinMCkEbxaZ41sJ0Fh dXA+MHBrNts4XLZgmVunHO9stY VjULjwWq2jQQF4UgJpMeLmJYbx P7NxFTKqhobjsflevKT6LVOf WMFycR59Tb8wgYccNt7mEXCvXM Y9AHAmpBKlM4JxmG1bVgOeXPTr YYZbH2WlfOCkWWpzQ140ILmy BoE8XCIsnzDkE3LsQWDskFmrTs J1x3F1Vp1JzQvwdKWxKF5iSxVg AQz6I4RyUfq2WJUjrUimMA4l uESuBPxhKj1ytWjaiDgoZG2bKE Ugmafrh647WcFim3ejTUFhgNAi UVqmSXP4N69yt1H3PHQeMFOm MPX9hGT8oS5ejRytcljyfMEmrP fdplBabPkyEAvmWCwsY576VLJu gTyzCdHWOkm5L9XtHtv7MFUt mLdpHF7owPZrERcaYh2ioOtkfH ewEF1qTZRyxxznu670PaHgu6vr YFRbjSVsCXzhXJQ4P50ap3N2 XYCdPJIfSVJ5aIT5cU4itFgryl ogbGVmdDsgdmVydGljYWwtYWxp G315NPNpeQixBu3JGiq4M5Di Bgb3EMNdwTzgJP9foNBiDQzjPw 9mtIwirHieUC3kBHFihoacq210 OpRvb0xoPTCccQNxGOyrHCP9 K11xm9D5XXPsKZJcQBN7bAF9tY 1hbGlnbjogbGVmdDsgdmVydGlj LPtcGUooP532ICMsgTrkQgPr eWVyOjwvdGQ+DH57ul09D9IyFs lfNbz9ACTpAFP0fBF5rG1lMMRi ECmee7J4tLZ6J6RnphTgxn2u b2x (more content not included)... Normal .Auto Diff 10-25-2022 Auto Rooks % 8 % Normal 08-26 Comment on above: Performed By: #### 1 [id number], [id number], [id number], [id number], 8888346, [id number], [id number] ####[facility] (DEFAULT)[address] [place] [address] Baso Abs# 0.1 x10 Normal 0.0-0.2 Comment on above: Performed By: #### 1 [id number], [id number], [id number], [id number], 7182796, [id number], [id number] ####[facility] (DEFAULT)[address] [place] [address] Basophils/100 WBC (Bld) 1.1 % Normal 0.2-2.0 Comment on above: Performed By: #### 1 [id number], [id number], 7143317, [id number], 0182937, 8766988, 4608403, [id number] ####[facility] (DEFAULT)[address] [place] [address] Eos Abs# 0.9 x10 High 0.0-0.4 Comment on above: Performed By: #### 1 [id number], [id number], [id number], 7525157, [id number], 8011514, 0664152, [id number], [id number] ####[facility] (DEFAULT)[address] [place] [address] Eosinophils/100 WBC (Bld) 11.5 % High 0.9-4.0 Comment on above: Performed By: #### 1 [id number], [id number], [id number], [id number], 1643869, 7800940611, 4864290, 3649702, 2701918, [id number] ####[facility] (DEFAULT)[address] [place] [address]3632 Lymph Abs# 2.5 x10 Normal 1.3-2.9 Comment on above: Performed By: #### 1 [id number], 96525200, 7677701, 3983211237, 8076241, 6519978942, 2699865, 4757524, 6419945, 7475209697 ####[facility] (DEFAULT)[address] [place] [address] Lymphocytes/100 WBC (Bld) 32 % Normal 14-48 Comment on above: Performed By: #### 1 [id number], 82014658, 3787756, 7158090070, 3299154, 3406277299, 9146463, 5227414, 2467934, 4125820289 ####[facility] (DEFAULT)[address] [place] [address] Rooks Abs# 0.6 x10 Normal 0.0-0.8 Comment on above: Performed By: #### 1 [id number], 04454844, 7930290, 6176181420, 0222615, 0094612321, 5607112, 1786229, 6356628, 6519286949 ####[facility] (DEFAULT)[address] [place] [address] Neut Abs# 3.7 x10 Normal 1.5-9.2 Comment on above: Performed By: #### 1 [id number], 77607502, 4566215, 2601600759, 1615951, 7065842847, 6324307, 9559358, 2849440, 2450647208 ####[facility] (DEFAULT)[address] [place] [address] Neutrophils/100 WBC (Bld) 48 % Normal 44-88 Comment on above: Performed By: #### 1 [id number], 01736641, 7238406, 1881572397, 2746217, 6498701480, 9302885, 9320043, 8341453, 8564259287 ####[facility] (DEFAULT)[address] [place] [address] .QC SARS-CoV-2 (COVID-19)/Fl u/RSV (GeneXpert)on 10-25-2022 Internal Control Pass Normal Comment on above: Order Comment: Order ed by Kelly. [[id number]] Performed By: #### 7 [id number], [id number] #### [facility] (DEFAULT) [address] [place] [address] 28415 BNP.on 10-25-2022 Natriuretic peptide B (Bld) [Mass/Vol] pg/mL Normal 0.0-100.0 Comment on above: Result Comment: BNP results greater than 100 pg/mL are considered abnormal and suggestive of patients with CHF. Higher BNP concentrations measured in the first 72 hours after an acute coronary syndorme are associated with an increased risk of , myocardial infarction, and CHF. Performed By: #### 1 [id number], 42284792, 7235688, 5265873931, 7449844, 2385203206, 6698762, 6805052, 7120340, 2315541994 ####[facility] (DEFAULT)[address] [place], [place] [address] CBC w/ Auto Diffon Erythrocyte distribution width (RBC) [Ratio] 13.0 % Normal 11.5-15.0 Comment on above: Performed By: #### 1 [id number], 07589944, 1500753, 6058363677, 5429780, 3306462452, 5263887, 9112504, 8688273, 1810858526 ####[facility] (DEFAULT)[address] [place] [address] Hematocrit (Bld) [Volume fraction] 46.5 % Normal 34.8-51.9 Comment on above: Performed By: #### 1 [id number], 95526694, 6289454, 3599730513, 8930090, 8259864673, 6770375, 4883735, 2587035, 7318078233 ####[facility] (DEFAULT)[address] [place] [address] 94668 Hemoglobin (Bld) [Mass/Vol] 16.5 g/dL Normal 11.8-17.7 Comment on above: Performed By: #### 1 [id number], 54028262, 3211131, 1938966675, 9378206, 4620862338, 0126002, 0753025, 3916670, 4543374277 ####[facility] (DEFAULT)[address] [place] [address] Man Diff? Auto Invalid Interpretation Code Comment on above: Performed By: #### 1 959222655, 59563369, 3489363, 6195014035, 6235159, 9514980520, 3796118, 8532945, 2196179, 5886079194 ####[facility] (DEFAULT)[address] [place] [address] 41672 MCH (RBC) [Entitic mass] 31 pg Normal 24-34 Comment on above: Performed By: #### 1 [id number], 43526744, 7802823, 8271168476, 9752116, 6006160572, 5813859, 0221676, 3764361, 6702617846 ####[facility] (DEFAULT)[address] [place] [address] MCHC (RBC) [Mass/Vol] 36 g/dL Normal 26-37 [facility] Comment on above: Performed By: #### 1 492247490, 10880565, 8678488, 2514552389, 3224915, 1331840871, 4736887, 7047910, 6342698, 9451138149 ####[facility] (DEFAULT)[address] [place] [address] 88046 MCV (RBC) [Entitic vol] 87 fL Normal 81-100 Comment on above: Performed By: #### 1 [id number], 08253348, 3142237, 2655933971, 3614981, 5919249680, 8030292, 6230489, 3013210, 6574417098 ####[facility] (DEFAULT)[address] [place] [address] 31968 Platelet 233 x10 Normal 138-427 Comment on above: Performed By: #### 1 907991937, 41451462, 1270719, 0735236607, 9073339, 7823255839, 1126213, 1352166, 0379114, 3207937106 ####[facility] (DEFAULT)[address] [place] [address] 94212 Platelet mean volume (Bld) [Entitic vol] 7.5 fL Normal 6.3-10.2 Comment on above: Performed By: #### 1 522572970, 87410295, 1111360, 0741712247, 9132015, 1987960445, 5426609, 4015446, 2981564, 1498549637 ####[facility] (DEFAULT)[address] [place] [address] 23462 RBC 5.36 x10 High 3.70-5.30 Comment on above: Performed By: #### 1 811260664, 40781112, 8483256, 9573798900, 6864706, 5728758971, 6442577, 0088843, 6711225, 3892676591 ####[facility] (DEFAULT)[address] [place] [address] 26165 WBC 7.7 x10 Normal 3.5-10.5 Comment on above: Performed By: #### 1 791156321, 38143899, 2831305, 6306164281, 5854558, 6025322005, 5393870, 9281229, 0300903, 1407214365 ####[facility] (DEFAULT)[address] [place] [address] 60373 CMP Standardon 10-25-2022 Breakpoint Chem Normal Comment on above: Performed By: #### 1 198735154, 35381992, 2248283, 8086759498, 4689108, 6294568420, 2888487, 8753371, 2785776, 0145081420 ####[facility] (DEFAULT)[address] [place] [address] 68196 eGFR Non AA >60 Invalid Interpretation Code Comment on above: Performed By: #### 1 827634555, 19792324, 7696817, 0799896142, 2976662, 7675173855, 0575941, 1013710, 0852152, 9293130860 ####[facility] (DEFAULT)[address] [place] [address] 65097 eGFR AA >60 Invalid Interpretation Code Comment on above: Performed By: #### 1 999791748, 69365703, 7248147, 9229071683, 2946159, 2258635871, 5080215, 3052531, 6988067, 4792519286 ####[facility] (DEFAULT)[address] [place] [address] Albumin [Mass/Vol] 4.5 g/dL Normal 3.5-5.0 [facility] Comment on above: Performed By: #### 1 [id number], 78412756, 0238279, 1672326792, 9626627, 7960222037, 0551068, 9807884, 6639539, 9986698383 ####[facility] (DEFAULT)[address] [place] [address] Albumin/Globulin [Mass ratio] 1.4 {ratio} Normal 1.4-2.6 Comment on above: Performed By: #### 1 196910346, 26310392, 1347870, 1988601438, 9624897, 3018727095, 1940649, 5446951, 8075129, 0835920919 ####[facility] (DEFAULT)[address] [place] [address] 36574 Alk Phos 98 IU/L High 32-91 Comment on above: Performed By: #### 1 652105438, 28001520, 2199372, 9497753966, 2972474, 2889610756, 0474105, 3039616, 2500795, 0754059668 ####[facility] (DEFAULT)[address] [place] [address] 89411 ALT [Catalytic activity/Vol] 44.0 U/L Normal 17.0-63.0 Comment on above: Performed By: #### 1 [id number], 25669938, 6583701, 6694876207, 9381881, 0713141869, 2548440, 7588122, 4326161, 5328793711 ####[facility] (DEFAULT)[address] [place] [address] 13011 Anion gap [Moles/Vol] 11.1 mmol/L Normal 5.0-19.[address] [facility] Comment on above: Performed By: #### 1 809450614, 56845337, 9697218, 2270640840, 3816959, 8582615023, 4906295, 2168090, 4800841, 8867672478 ####[facility] (DEFAULT)[address] [place] [address] 31055 AST [Catalytic activity/Vol] 32 U/L Normal 15-41 Comment on above: Performed By: #### 1 797905212, 35388691, 0029518, 1271990474, 7224572, 1128157156, 6328328, 0132693, 5791750, 2022533605 ####[facility] (DEFAULT)[address] [place] [address] 93360 Bili Total 0.7 mg/dL Normal 0.3-1.2 Comment on above: Performed By: #### 1 559903964, 68106781, 3320325, 1093568382, 1791174, 0659231417, 9501238, 3635499, 3660032, 7407239256 ####[facility] (DEFAULT)[address] [place] [address] 76193 Calcium [Mass/Vol] 9.1 mg/dL Normal 8.9-10.3 [facility] Comment on above: Performed By: #### 1 344129856, 85606519, 5682645, 1339474933, 7531069, 7865736830, 2482259, 4246276, 9439472, 3202855870 ####[facility] (DEFAULT)[address] [place] [address] 27009 Chloride [Moles/Vol] 104 mmol/L Normal 101-111 [facility] Comment on above: Performed By: #### 1 611565423, 95425213, 4752643, 4130352753, 1381509, 1544023207, 8039204, 4856725, 8033097, 9576329662 ####[facility] (DEFAULT)[address] [place] [address] 20129 CO2 [Moles/Vol] 23 mmol/L Normal 21-32 Comment on above: Performed By: #### 1 076908204, 72790839, 0406597, 6846984401, 7177818, 4278339885, 9947028, 4915845, 0561001, 7232320809 ####[facility] (DEFAULT)[address] [place] [address] Creatinine [Mass/Vol] 0.70 mg/dL Low 0.90-1.30 [facility] Comment on above: Performed By: #### 1 683396835, 20495180, 9307651, 8637228129, 3216132, 8218876620, 0704314, 6942385, 4254189, 7334340859 ####[facility] (DEFAULT)[address] [place] [address] Globulin (S) [Mass/Vol] 3.1 g/dL Normal 1.5-4.3 Comment on above: Performed By: #### 1 017374903, 28950874, 3038556, 9432998628, 3483720, 2242722407, 0670275, 5497927, 9074984, 8429285390 ####[facility] (DEFAULT)[address] [place] [address] Glucose [Mass/Vol] 101.0 mg/dL Normal 74.0-118.0 [facility] Comment on above: Performed By: #### 1 641222105, 44833090, 2528422, 7912056717, 2876474, 5238288592, 8352025, 2900617, 7910506, 3515741665 ####[facility] (DEFAULT)[address] [place] [address] Osmolality 270 mOsm/L Invalid Interpretation Code Comment on above: Performed By: #### 1 478552440, 41815083, 5736609, 0410719300, 3648319, 6580085668, 8577338, 4577519, 7348080, 8154647508 ####[facility] (DEFAULT)[address] [place] [address] 90362 Potassium [Moles/Vol] 3.1 mmol/L Low 3.6-5.1 [facility] Comment on above: Performed By: #### 1 429557347, 35911051, 5361529, 5763477561, 2640550, 6824945477, 3960645, 3152495, 3578836, 8348188341 ####[facility] (DEFAULT)[address] [place] [address] 55290 Protein [Mass/Vol] 7.6 g/dL Normal 6.5-8.1 [facility] Comment on above: Performed By: #### 1 186166766, 97694761, 4178379, 0828930621, 7625946, 6199108632, 6919660, 2348748, 6292331, 7020888561 ####[facility] (DEFAULT)[address] [place] [address] 34926 Sodium [Moles/Vol] 135.0 mmol/L Low 136.0-144 . 0 Comment on above: Performed By: #### 1 669854015, 61878155, 2620552, 0409312105, 9579391, 9016423780, 1748001, 3650878, 0606097, 0315982334 ####[facility] (DEFAULT)[address] [place] [address] 81512 Urea nitrogen [Mass/Vol] 11 mg/dL Normal 8-26 Comment on above: Performed By: #### 1 [id number], 74799525, 7228207, 4002328803, 5442372, 0624230241, 1797260, 6964452, 6631308, 7210386441 ####[facility] (DEFAULT)[address] [place] [address] 09750 Urea nitrogen/Creatinine [Mass ratio] 15.7 mg/mg Normal 4.6-16.2 Comment on above: Performed By: #### 1 536075059, 73814958, 5824218, 0594358228, 9129023, 8267862951, 9532282, 4788908, 7335601, 4344908348 ####[facility] (DEFAULT)[address] [place] [address] 44348 COVID/Flu/RSV (GeneXpert)on 10-25-2022 Flu A (GXpert COVFLURSV) Negative Normal Negative Comment on above: Performed By: #### 7 [id number], [id number] #### [facility] (DEFAULT) [address] [place] [address] 78288 Flu B (GXpert COVFLURSV) Negative Normal Negative Comment on above: Performed By: #### 7 019870804, [id number] #### [facility] (DEFAULT) [address] [place] [address] 48046 RSV (GXpert COVFLURSV) Negative Normal Negative [facility] Comment on above: Performed By: #### 7 [id number], [id number] #### [facility] (DEFAULT) [address] [place] [address] 65519 SARS-CoV-2 (COVID-19) RNA GLORY+probe Ql (Unsp spec) Negative Normal Negative Comment on above: Result Comment: Perf ormed by PCR methodology. Performed By: #### 7 [id number], [id number] #### [facility] (DEFAULT) [address] [place] [address] Head or Brain w/o Contras ton 10-25-2022 CT Head or Brain w/o Contrast EXAMINATION: CT Head or Brain w/o Contrast HISTORY: Head trauma, moderate-severe COMPARISON: None TECHNIQUE: CT examination of the head without IV contrast. Multiple axial images were obtained. Reformatted coronal and sagittal images were obtained and reviewed. Dose reduction techniques were achieved by using automated exposure control and/or adjustment of mA and/or kV according to patient size and/or use of iterative reconstruction technique. FINDINGS: CSF spaces are grossly unremarkable in appearance. No evidence of mass effect or midline shift. No acute intracranial hemorrhage is identified. No evidence of focal mass lesion is seen. No significant white matter abnormalities are identified. Calvarium is intact. Visualized mastoid air cells appear grossly unremarkable as do the intraorbital regions. Mild mucosal thickening noted in the bilateral ethmoid with minimal mucosal thickening in the sphenoid sinuses. Correlate for similar degree of sinusitis. IMPRESSION: CT head study fails to demonstrate evidence of acute bleed or focal mass. No evidence of skull fracture. Correlate for sinusitis as noted. Final Dictated by: Alverto John MD Dictated DT/TM: 10/25/22 10:57 Signed (Electronic Signature): Alverto John MD 10/25/22 11:03 a Technologist: Esperanza PAZ [facility] CT Spine Cervical w/o Contra ston 10-25-2022 CT Spine Cervical w/o Contrast EXAMINATION: CT Spine Cervical w/o Contrast HISTORY: Neck trauma, midline tenderness COMPARISON: None. TECHNIQUE: CT Cervical spine without IV contrast. Coronal and sagittal reformations were performed. Dose reduction techniques were achieved by using automated exposure control and/or adjustment of mA and/or kV according to patient size and/or use of iterative reconstruction technique. FINDINGS: The cervical vertebral bodies are all shown to be intact and are appropriately aligned. All of the pedicles, and posterior elements structures are also intact and align normally, including atlantoaxial and craniocervical junction structures. No signs of canal stenosis or discogenic compression based on the sagittal images. The axial images demonstrate no significant degenerative changes of the interspaces or endplates, facets or uncovertebral joints. Included upper most ribs appeared satisfactory. The apical lung voss are clear. The included cervical soft tissues and airways are unremarkable. IMPRESSION: No evidence of acute fracture or traumatic malalignment involving the cervical spine. No significant degenerative changes, or discogenic changes encroaching the spinal canal. Final Dictated by: Nando Crespo Dictated DT/TM: 10/25/22 10:58 Signed (Electronic Signature): Nando Crespo 10/25/22 11:28 a Technologist: Esperanza PAZ [facility] ED Clinical Summaryon 2022 ED Clinical Summary - Emergency Department [address] [place] [address]55 ED Clinical Summary PERSON INFORMATION Name: RICKIE OSCAR Age: 22 Years Sex: MALE : 2000 MRN: Acct#: Visit Reason: Syncope/Near syncope; Closed head injury with LOC; Fall; HEAD INJURY Arrival: 10/25/2022 10:03:25 Discharge: 10/25/2022 13:40:00 LOS: 000 03:37 Check In: 10/25/2022 10:03:25 Checkout:10/25/2022 13:40:00 Address: [address] [facility] [address] PCP: Provider, None PROVIDER INFORMATION Provider Role Assigned Unassigned ALLISON DON ED PA 10/25/2022 10:03:48 Zofia RN, Carina ED Nurse 10/25/2022 11:22:13 VITALS INFORMATION Vital Sign Triage Latest Temperature Tympanic Temperature Temporal Artery Pulse Rate 70 bpm 81 bpm O2 Sat 97 % 99 % Respiratory Rate 14 br/min 14 br/min Blood Pressure /95 mmHg /95 mmHg MEDICAL INFORMATION Medications Given: Medication Dose Route Sodium Chloride 0.9% intravenous solution 500 mL 500 mL Initial Volume 1000 mL/hr IV Right Antecubital Fossa acetaminophen (Tylenol) 1000 mg PO potassium bicarbonate 25 mEq PO Sodium Chloride 0.9% intravenous solution 1,000 mL 1000 mL Initial Volume 1000 mL/hr IV Right Antecubital Fossa Allergy Information: No known allergies PHYSICIAN DOCUMENTATION Patient: RICKIE OSCAR Age: 22 years Sex: MALE : 2000 Associated Diagnoses: Fall; Head injury; Lightheadedness; Hypokalemia; Diarrhea; Nausea and vomiting; Elevated blood pressure reading Author: ALLISON DON Basic Information Time seen: Date & time 10/25/2022 10:08:00. History source: Patient. Arrival mode: Private vehicle, walking. History of Present Illness Patient is a 22-year-old male presenting to the emergency department for evaluation of fall, head injury, lightheadedness. Patient has a previous history of sick sinus syndrome along with anxiety depression. Patient states he was at work today he was up on scaffolding approximately 3 feet felt lightheaded and fell off. States he landed on his knees, but then hit the side of his head. denies any loss of consciousness. Patient states over the last week he has had cough, chest congestion, nausea vomiting diarrhea. States he still having multiple bouts of diarrhea daily but states the vomiting has almost completely resolved. States she is still coughing chest congestion and indicates that his significant other at home has the same symptoms. Patient states he is still feeling lightheaded at this time. He does report mild neck discomfort from this fall along with bilateral knee pain. States he is able to ambulate. Review of Systems Constitutional symptoms: No fever, Skin symptoms: No rash, Eye symptoms: Vision unchanged. ENMT symptoms: Nasal congestion, No sore throat, Respiratory symptoms: Cough, No shortness of breath, Cardiovascular symptoms: No chest pain, Gastrointestinal symptoms: Nausea, vomiting, diarrhea, No abdominal pain, Genitourinary symptoms: No dysuria, Musculoskeletal symptoms: Back pain, Muscle pain. Neurologic symptoms: Headache, dizziness. Health Status Allergies: No active allergies have been recorded.. Past Medical/ Family/ Social History Family history: No family history items have been selected or recorded.. Social history: Social & Psychosocial Habits No Data Available . Physical Examination HEAD: Appears atraumatic. EYES: -EOM intact, PERRL -Nystagmus: No ENMT: Ears, Nose, Mouth and Throat all appear atraumatic. NECK: -Abrasions or contusions: No -Tenderness to palpation: Increased discomfort with palpation of cervical spine -Range of non-tender motion (for patient): Normal CARD: -Rate and rhythm: Regular -Murmurs: No -Rubs: No CHEST/RESP: -Pain with firm chest palpation: No -Respiratory effort and chest excursion with respirations: Normal -Breath sounds equal bilaterally: Clear -Wheezes: No ABD: -Appears non-distended and atraumatic -Bowel sounds: Normal. -Deep palpation of epigastric, suprapubic and 4 quads: Non-tender, soft, no guarding or rebound tenderness -Organomegaly palpable: No -Abnormal masses: No BACK: -Abrasions or contusions: No -Tenderness to firm palpation: No midline tenderness : Pelvis stable and non-tender to firm palpation. EXT: -No obvious deformities -ROM (for patient) in all four extremities: Normal -Tenderness to palpation: Increased discomfort with palpation of bilateral knees -Injured Extremity(ies) distal pulses: Normal NEURO/PSYCH: -Patient: alert -Signs of intoxication: No -Oriented to: person, place and time. -The patient's appearance, judgment, mood and manner: Appropriate. -Grooming and personal hygiene seem: Appropriate. -Abnormally-favoring gait (for patient): No Medical Decision Making 22-year-old male presenting to emergency department status post fall from 3 foot high scaffolding, patient fell onto his knees hit his h (more content not included)... Normal ED Note - Physicianon 2022 ED Note - Physician Patient: MONI OSCAR Age: 22 years Sex: MALE : 2000 Associated Diagnoses: Fall; Head injury; Lightheadedness; Hypokalemia; Diarrhea; Nausea and vomiting; Elevated blood pressure reading Author: ALLISON DON Basic Information Time seen: Date & time 10/25/2022 10:08:00. History source: Patient. Arrival mode: Private vehicle, walking. History of Present Illness Patient is a 22-year-old male presenting to the emergency department for evaluation of fall, head injury, lightheadedness. Patient has a previous history of sick sinus syndrome along with anxiety depression. Patient states he was at work today he was up on scaffolding approximately 3 feet felt lightheaded and fell off. States he landed on his knees, but then hit the side of his head. denies any loss of consciousness. Patient states over the last week he has had cough, chest congestion, nausea vomiting diarrhea. States he still having multiple bouts of diarrhea daily but states the vomiting has almost completely resolved. States she is still coughing chest congestion and indicates that his significant other at home has the same symptoms. Patient states he is still feeling lightheaded at this time. He does report mild neck discomfort from this fall along with bilateral knee pain. States he is able to ambulate. Review of Systems Constitutional symptoms: No fever, Skin symptoms: No rash, Eye symptoms: Vision unchanged. ENMT symptoms: Nasal congestion, No sore throat, Respiratory symptoms: Cough, No shortness of breath, Cardiovascular symptoms: No chest pain, Gastrointestinal symptoms: Nausea, vomiting, diarrhea, No abdominal pain, Genitourinary symptoms: No dysuria, Musculoskeletal symptoms: Back pain, Muscle pain. Neurologic symptoms: Headache, dizziness. Health Status Allergies: No active allergies have been recorded.. Past Medical/ Family/ Social History Family history: No family history items have been selected or recorded.. Social history: Social & Psychosocial Habits No Data Available . Physical Examination HEAD: Appears atraumatic. EYES: -EOM intact, PERRL -Nystagmus: No ENMT: Ears, Nose, Mouth and Throat all appear atraumatic. NECK: -Abrasions or contusions: No -Tenderness to palpation: Increased discomfort with palpation of cervical spine -Range of non-tender motion (for patient): Normal CARD: -Rate and rhythm: Regular -Murmurs: No -Rubs: No CHEST/RESP: -Pain with firm chest palpation: No -Respiratory effort and chest excursion with respirations: Normal -Breath sounds equal bilaterally: Clear -Wheezes: No ABD: -Appears non-distended and atraumatic -Bowel sounds: Normal. -Deep palpation of epigastric, suprapubic and 4 quads: Non-tender, soft, no guarding or rebound tenderness -Organomegaly palpable: No -Abnormal masses: No BACK: -Abrasions or contusions: No -Tenderness to firm palpation: No midline tenderness : Pelvis stable and non-tender to firm palpation. EXT: -No obvious deformities -ROM (for patient) in all four extremities: Normal -Tenderness to palpation: Increased discomfort with palpation of bilateral knees -Injured Extremity(ies) distal pulses: Normal NEURO/PSYCH: -Patient: alert -Signs of intoxication: No -Oriented to: person, place and time. -The patient's appearance, judgment, mood and manner: Appropriate. -Grooming and personal hygiene seem: Appropriate. -Abnormally-favoring gait (for patient): No Medical Decision Making 22-year-old male presenting to emergency department status post fall from 3 foot high scaffolding, patient fell onto his knees hit his head, no loss of consciousness. Patient felt lightheaded which caused him to fall, recent illness over the last week with chest congestion, nausea vomiting and diarrhea. Patient has a history of sick sinus syndrome, anxiety depression. I recommend CT scan of head and neck along with chest x-ray, x-rays of knees, blood work, EKG, patient was in agreement. CT scan of the head failed to demonstrate evidence of acute bleed or focal mass, no evidence of skull fracture; correlate for sinusitis as noted; CT scan of cervical spine shows no evidence of acute fracture or traumatic malalignment involving the cervical spine; no significant degenerative changes or discogenic changes encroaching the spinal canal as interpreted by radiologist. X-ray of the chest fails to demonstrate evidence of acute process; x-ray of the right and left knee failed to demonstrate definitive acute fracture dislocation as interpreted by radiologist. Patient's blood work shows hypokalemia with potassium 3.1, magnesium within normal ranges, sodium of 135 and glucose of 101, creatinine is 0.7, lipase slightly elevated at 58, lactic acid within normal ranges, osmolality 270, troponin within normal ranges, BNP within normal ranges, white blood cell count hemoglobin and platelets within normal ranges. Discussed these findings with the patient, (more content not included)... Normal ED Patient Summaryon 023 ED Patient Summary - Emergency Department [address] [id number] PATIENT DISCHARGE INSTRUCTIONS Patient Information Name: RICKIE OSCAR Age: 22 Years Date of : 2000 Reason For Visit: Syncope/Near syncope; Closed head injury with LOC; Fall; HEAD INJURY Arrival Time: 10/25/2022 10:03:25 Phone: Primary Care Physician: Provider, None Attending Physician: Feliz Santana MD Comment: Visit Diagnosis: Diagnoses This Visit Closed head injury with LOC ([id number]) Diarrhea (R19.7) Elevated blood pressure reading (R03.0) Fall ([id number]) Fall (W19.XXXA) Head injury (S09.90XA) Hypokalemia (E87.6) Lightheadedness (R42) Nausea and vomiting (R11.2) Syncope/Near syncope ([id number]) The Pharmacy at [facility] is open Tuesday through Tuesday from 9A to 6P and Tuesday and Tuesday from 9A to 5P Prescription Information: If you have been given a prescription for narcotics, seek immediate medical attention if you have any difficulty breathing or any sudden status changes such as confusion and sleepiness. If you or anyone you know is experiencing suicidal thoughts, mental health, alcohol and/or drug addiction problems; contact the Mental Health & [facility] 07/03 Crisis Hotline -Text 4HLGA to 177282. If you received any narcotics, sedation, or any other medication that causes drowsiness for the next 24 hours, unless otherwise directed: ? Do not drive a car. ? Do not operate machinery such as power tools, lawn mowers, drills, sewing machines, or stoves ? Avoid alcoholic beverages and drugs for allergies, nerves, or sleep ? Do not make important personal or business decisions or sign any legal documents With: Address: When: [facility] Occupational Health Comments: Follow-up with Worker's Compensation next week. Light duty until after follow-up. Return stool samples to the lab for analysis. Continue with hydrating with oral rehydrating solutions as discussed. Return to the emergency department for any worsening issues such as fevers, crushing chest pain, shortness of breath, severe increasing headaches, trouble walking or talking, or any other problems. With: Address: When: Eldon Fernandez [address] [place] [address] [facility] () Within 3 to 5 days Comments: Follow-up family physician for reevaluation. Continue to stay hydrated, no strenuous activity until after follow-up. With: Address: When: Katelynn Lomas [phone] EXT: [phone] Call for family Physician Within 3 to 5 days With: Address: When: [facility] Comments: [phone] Medication Information: The exam and treatment you received today in the [facility] Emergency Department were for an urgent problem and are not intended as complete care. It is important for you to follow up with a doctor, nurse practitioner, or physician?s therapist's assistant for ongoing care. If your symptoms become worse or you do not improve as expected and you are unable to reach your usual health care provider, you should return to the Emergency Department, we are available 24 hours a day. For those patients who have received Radiology results, the interpretation of your X-ray as given to you by our Emergency Department physician is only a preliminary report. The Radiologist will review your films and if there is a change in the diagnosis you will be notified by phone. Please make sure you have provided a working phone number so we can reach you if necessary. In the event that you had a lab culture while you were a patient in the Emergency Department, you will be notified by phone if there is a need to change your antibiotic. Please make sure you have provided a working phone number so we can reach you if necessary. Emergency Department has provided you with a complete list of medications post discharge. Please inform your quality reviewer/provider of your visit and for further instruction on these medications. Any specific questions regarding your chronic medications and dosages should be discussed with your primary care physician(s) and/or pharmacist. [facility], [address], [place] [id number], [phone] potassium chloride (potassium chloride 20 mEq oral tablet, extended release) 1 tab(s) Oral every day. Refills: 0. Printed Prescriptions Misc Prescription (Clostridium difficile culture) Clostridium difficile culture from stool. Results to PCP Diagnosis diarrhea. Refills: 0. Misc Prescription (Rotavirus Ag) Rotavirus Ag, results to primary care provider Diagnosis: Diarrhea. Refills: 0. Misc Prescription (Stool pathogen PCR panel) Stool pathogen PCR panel. Results to PCP Diagnosis: Diarrhea. Refills: 0. Misc Prescription (work note) Please excuse from work 10/25/22. Refills: 0. Additional medic (more content not included)... Normal Extra Redon 10-25-2022 Tube Collected Yes Invalid Interpretation Code Comment on above: Performed By: #### 1 [id number], [id number], [id number], [id number], [id number], [id number], 0553338, 1020879, 1209065, [id number] ####[facility] (DEFAULT)[address] [place] [address] Lactic Acidon 10-25-2022 Lactic Acid 13.4 mg/dL Normal 4.5-19.8 Comment on above: Performed By: #### 2 [id number] ####[facility] (DEFAULT)[address] [place] [address] Lipaseon 10-25-2022 Lipase Level 58.0 IU/L High 22.0-51.0 Comment on above: Performed By: #### 1 [id number], [id number], 7131403, [id number], 0426059, [id number], 5027326, 6999427, 6927706, [id number] ####[facility] (DEFAULT)[address] [place] [address] Magnesiumon 10-25-2022 Magnesium [Mass/Vol] 1.92 mg/dL Normal 1.80-2.50 [facility] Comment on above: Performed By: #### 1 [id number], [id number], 1193606, [id number], 5559228, [id number], 6122340, 6215375, 6342320, [id number] ####[facility] (DEFAULT)[address] [place] [address] PTon 10-25-2022 INR Coag (PPP) [Relative time] {INR} Normal 0.91-1.11 Comment on above: Performed By: #### 1 [id number], [id number], 8323293, [id number], 2632864, [id number], 4736129, 9523182, 3579980, [id number] ####[facility] (DEFAULT)[address] [place] [address] PT 9.9 second(s) Normal 9.7-11.8 Comment on above: Performed By: #### 1 [id number], [id number], 8393751, [id number], 7122022, [id number], 0869791, 3182344, 5273064, [id number] ####[facility] (DEFAULT)[address] [place] [address] PTTon 10-25-2022 PTT 30 second(s) Normal 25-35 Comment on above: Performed By: #### 1 [id number], 72594132, 4693101, [id number], 8036408, 9921041377, 0312323, 5417859, 1908140, [id number] ####[facility] (DEFAULT)[address] [place] [address] TnI HSon 10-25-2022 Troponin I High Sensitivity <2.3 Normal <=20.0 Comment on above: Order Comment: To be done 1 hour after first Troponin HS Performed By: #### 5 [id number] #### [facility] (DEFAULT) [address] [place] [address] Troponin I High Sensitivity 2.3 pg/mL Normal <=20.0 Comment on above: Performed By: #### 1 [id number], [id number], 6231622, [id number], 0472199, [id number], 0106127, 9152072, 0828993, [id number] ####[facility] (DEFAULT)[address] [place] [address] UA w Culture if Ind Standard on 10-25-2022 Breakpoint UA [facility] Comment on above: Performed By: #### 1 [id number] ####[facility] (DEFAULT)[address] [place] [address] Color (U) Yellow [facility] Comment on above: Performed By: #### 1 [id number] ####[facility] (DEFAULT)[address] [place] [address] Culture? Not Indicated Invalid Interpretation Code Comment on above: Result Comment: Resu lt created by rule GL_MAGR_ADD_UA_CULT1 Performed By: #### 1 [id number] ####[facility] (DEFAULT)[address] [place] [address] Glucose (U) [Mass/Vol] Negative [facility] Comment on above: Performed By: #### 1 [id number] ####[facility] (DEFAULT)[address] [place] [address] Ketones Ql (U) Negative [facility] Comment on above: Performed By: #### 1 [id number] ####[facility] (DEFAULT)[address] [place] [address] Micro? Not Indicated Invalid Interpretation Code Comment on above: Result Comment: Resu lt created by rule GL_MAGR_ADD_UA_MICRO Performed By: #### 1 [id number] ####[facility] (DEFAULT)[address] [place] [address] UA Bilirubin Negative Normal Comment on above: Performed By: #### 1 [id number] ####[facility] (DEFAULT)[address] [place] [address] UA Blood Negative Normal NEGATIVE Comment on above: Performed By: #### 1 [id number] ####[facility] (DEFAULT)[address] [place] [address] UA Clarity CLEAR Normal CLEAR Comment on above: Performed By: #### 1 [id number] ####[facility] (DEFAULT)[address] [place] [address] UA Leuk Est Negative Normal NEGATIVE Comment on above: Performed By: #### 1 [id number] ####[facility] (DEFAULT)[address] [place] [address] UA Nitrite Negative Normal NEGATIVE Comment on above: Performed By: #### 1 [id number] ####[facility] (DEFAULT)[address] [place] [address] UA pH 7.5 Normal 5-8 Comment on above: Performed By: #### 1 [id number] ####[facility] (DEFAULT)[address] [place] [address] UA Protein Negative Normal [facility] Comment on above: Performed By: #### 1 [id number] ####[facility] (DEFAULT)[address] [place] [address] UA Spec Grav 1.010 Normal 1.001-1.[address] [place] [address] Comment on above: Performed By: #### 1 [id number] ####[facility] (DEFAULT)[address] [place] [address] UA Urobilinogen 0.2 mg/dL Normal 0.2-1.0 Comment on above: Performed By: #### 1 [id number] ####[facility] (DEFAULT)[address] [place] [address] Urine Source Clean Catch Normal Comment on above: Performed By: #### 1 [id number] ####[facility] (DEFAULT)[address] [place] [address] XR Chest 2 Viewson 3 XR Chest 2 Views EXAM: XR Chest 2 Vie ws, XR Knee Complete Right, XR Knee Complete Left HISTORY: Chest Pain injury, bilateral knee pain COMPARISON: None TECHNIQUE: PA and lateral views of the chest were obtained. FINDINGS: Heart and mediastinal contours are unremarkable in appearance. No acute infiltrate or consolidations are seen. No obvious pneumothorax. Bony structures are grossly intact. 4 views of the right knee were obtained. FINDINGS: No definite acute fracture or dislocation is seen. No significant osseous or articular abnormalities are identified. No evidence of sizable suprapatellar joint effusion. Mild soft tissue swelling noted anteriorly. 4 views of the left knee were obtained. FINDINGS: No definite acute fracture or dislocation is seen. No significant focal osseous or articular abnormalities are identified. Soft tissues are grossly within normal limits. IMPRESSION: Chest study fails to demonstrate evidence of acute process. Right knee study fails to demonstrate definite acute fracture or dislocation. Left knee study fails to demonstrate definite acute fracture or dislocation. Follow-up as needed. Final Dictated by: Alverto John MD Dictated DT/TM: 10/25/22 11:26 Signed (Electronic Signature): Alverto John MD 10/25/22 11:31 a Technologist: UZAIR CAMPOS [facility] XR Knee Complete Lefton 10-13 XR Knee Complete Left EXAM: XR Chest 2 V iews, XR Knee Complete Right, XR Knee Complete Left HISTORY: Chest Pain injury, bilateral knee pain COMPARISON: None TECHNIQUE: PA and lateral views of the chest were obtained. FINDINGS: Heart and mediastinal contours are unremarkable in appearance. No acute infiltrate or consolidations are seen. No obvious pneumothorax. Bony structures are grossly intact. 4 views of the right knee were obtained. FINDINGS: No definite acute fracture or dislocation is seen. No significant osseous or articular abnormalities are identified. No evidence of sizable suprapatellar joint effusion. Mild soft tissue swelling noted anteriorly. 4 views of the left knee were obtained. FINDINGS: No definite acute fracture or dislocation is seen. No significant focal osseous or articular abnormalities are identified. Soft tissues are grossly within normal limits. IMPRESSION: Chest study fails to demonstrate evidence of acute process. Right knee study fails to demonstrate definite acute fracture or dislocation. Left knee study fails to demonstrate definite acute fracture or dislocation. Follow-up as needed. Final Dictated by: Alverto John MD Dictated DT/TM: 10/25/22 11:26 Signed (Electronic Signature): Alverto John MD 10/25/22 11:31 a Technologist: UZAIR CAMPOS Normal XR Knee Complete Righton XR Knee Complete Right EXAM: XR Chest 2 Views, XR Knee Complete Right, XR Knee Complete Left HISTORY: Chest Pain injury, bilateral knee pain COMPARISON: None TECHNIQUE: PA and lateral views of the chest were obtained. FINDINGS: Heart and mediastinal contours are unremarkable in appearance. No acute infiltrate or consolidations are seen. No obvious pneumothorax. Bony structures are grossly intact. 4 views of the right knee were obtained. FINDINGS: No definite acute fracture or dislocation is seen. No significant osseous or articular abnormalities are identified. No evidence of sizable suprapatellar joint effusion. Mild soft tissue swelling noted anteriorly. 4 views of the left knee were obtained. FINDINGS: No definite acute fracture or dislocation is seen. No significant focal osseous or articular abnormalities are identified. Soft tissues are grossly within normal limits. IMPRESSION: Chest study fails to demonstrate evidence of acute process. Right knee study fails to demonstrate definite acute fracture or dislocation. Left knee study fails to demonstrate definite acute fracture or dislocation. Follow-up as needed. Final Dictated by: Alverto John MD Dictated DT/TM: 10/25/22 11:26 Signed (Electronic Signature): Alverto John MD 10/25/22 11:31 a Technologist: UZAIR CAMPOS Normal ER URINE PROFILEon 2 Bilirubin Ql (U) Negative Normal NEGATIVE [facility] Comment on above: Performed By: #### E RUR #### [facility] [address] [place] [address] Dr. Ananda Tellez Clarity (U) CLEAR Normal CLEAR [facility] Comment on above: Performed By: #### E RUR #### [facility] [address] [address] [address] Ananda Tellez Color (U) YELLOW Normal YELLOW [facility] Comment on above: Performed By: #### E RUR #### [facility] [address] [place] [address] Dr. Ananda DENNY A micrscopic examina tion will be performed if indicated. Normal [facility] Comment on above: Performed By: #### E RUR #### [facility] [address] [place] [address] Dr. Ananda Tellez Glucose Ql (U) Negative Normal NEGATIVE [facility] Comment on above: Performed By: #### E RUR #### [facility] [address] [place] [address] Dr. Ananda Tellez Hemoglobin Ql (U) Negative Normal NEGATIVE [facility] Comment on above: Performed By: #### E RUR #### [facility] [address] [place] [address] Dr. Ananda Tellez Ketones Ql (U) Negative Normal NEGATIVE [facility] Comment on above: Performed By: #### E RUR #### [facility] [address] [place] [address] Dr. Ananda Tellez LEUKOCYTES Negative Normal NEGATIVE [facility] Comment on above: Performed By: #### E RUR #### [facility] [address] [place] [address] Dr. Ananda Tellez Nitrite Ql (U) Negative Normal NEGATIVE [facility] Comment on above: Performed By: #### E RUR #### [facility] [address] [place] [address] Dr. Ananda Tellez pH (U) 6.5 [pH] Normal 5-9 [facility] Comment on above: Performed By: #### E RUR #### [facility] [address] [place] [address] Dr. Ananda Tellez SPEC GRAVITY 1.025 Normal 1.005-<=1. 025 [facility] Comment on above: Performed By: #### E RUR #### [facility] [address] [place] [address] Dr. Ananda Tellez UA PROTEIN Negative Normal NEGATIVE/ TRACE [facility] Comment on above: Performed By: #### E RUR #### [facility] [address] [address] [address] Ananda Tellez UR MICRO IND NOT INDICATED Normal [facility] Comment on above: Performed By: #### E RUR #### [facility] [address] [place], [place] [address] Dr. Ananda Tellez Urobilinogen Qn (U) 1.0 {Honey'U}/dL Normal 0.2 - 1. 0 [facility] Comment on above: Performed By: #### E RUR #### [facility] [address] [address] [address] Ananda Tellez Progress Noteson 06-28-2022 Web Applications Architect Authentication Interface Message Text EMERGENCY TRIAGE, TREAT AND TRANSPORT (ET3) DOCUMENTATION OF TELEHEALTH VISIT Date / Time: 06/28/20222044 Name: Rickie Oscar : 2000 SSN: (Not on file) EMS Agency: [facility] [x] Verbal consent obtained [] Implied consent - patient with potential emergency medical condition requiring assessment of capacity to refuse treatment and/or transport VITAL SIGNS: see flowsheet documentation Reason for Telehealth Visit: Chief Complaint Patient presents with Fainting History of Present Ilness: 22 yo male with pmh bipolar and sick sinus syndrome who was in an argument with family at home when had syncope and fall from standing. Pos LOC. No AC. No ETOH or substance abuse. Pt denies head injury or pain. He is ambulatory at his baseline and refusing EMS transport. Present on scene with his mother/family. Denies injury Pt is somewhat anxious and intermittently yelling at family in back ground Additional pertinent PMHx, SocHx, FamHx: PMH as above Meds no AC, quinazipem Social no ETOH./drugs Review of Systems: = Denies the following: PAUL, neck pain, back pain or injury Exam: General: Awake, no distress ENT: normocephalic, atraumatic Pulmonary: No respiratory distress Cardiovascular: Well perfused Neurologic: Oriented to person, place, time and events. Moving all extremities equally. Psychiatric: Appropriate. Good insight and judgement. Medical Decision Makin yo male with syncope during argument. EKG NSR, RR, no STEMI. Pt with normal BL on scene. He is awake, alert in NAD with normal neuro. Pt declining ems transport. Educated on avoidance of stressfull situations. Pt educated on strict call 911 or go to ED precautions. No questions. Ok for EMS refusal of transport. Disposition Supported by Telehealth Assessment: ET3 transport decisions: Refused transport EMS Disposition Reported: Same ET3 Encounter Completed by: Mauri Cabrera, DO Normal [facility] Vital Signs Date Time Vital Sign Value Performing Clinician Facility 04-19-2023 12:10-0400 Body temperature 97.9 [degF] MD Marisela Ziegler Work Phone: [facility] 04-19-2023 12:10-0400 Respiratory rate 16 /min MD Marisela Ziegler Work Phone: [facility] 04-19-2023 12:10-0400 SaO2% (BldA) [Mass fraction] 95 % MD Marisela Ziegler Work Phone: [facility] 04-19-2023 07:11-0400 Diastolic blood pressure 82 mm[Hg] MD Marisela Ziegler Work Phone: [facility] 04-19-2023 07:11-0400 Heart rate 67 /min MD Marisela Ziegler Work Phone: [facility] 04-19-2023 07:11-0400 Systolic blood pressure 129 mm[Hg] MD Marisela Ziegler Work Phone: [facility] 04-18-2023 09:00-0400 Body weight 97.06 kg MD Marisela Ziegler Work Phone: [facility] 04-16-2023 13:18-0400 Body height 172.72 cm MD Marisela Ziegler Work Phone: [facility] 12-03-2022 15:55-0400 Diastolic blood pressure 86 mm[Hg] MD Marisela Ziegler Work Phone: [facility] 12-03-2022 15:55-0400 Heart rate 80 /min MD Marisela Ziegler Work Phone: [facility] 12-03-2022 15:55-0400 Respiratory rate 20 /min MD Marisela Ziegler Work Phone: [facility] 12-03-2022 15:55-0400 SaO2% (BldA) [Mass fraction] 96 % MD Marisela Ziegler Work Phone: [facility] 12-03-2022 15:55-0400 Systolic blood pressure 139 mm[Hg] MD Marisela Ziegler Work Phone: [facility] 12-03-2022 12:50-0400 Body temperature 97.6 [degF] MD Marisela Ziegler Work Phone: [facility] 12-03-2022 12:47-0400 Body height 172.72 cm MD Marisela Ziegler Work Phone: [facility] 12-03-2022 12:47-0400 Body weight 95.9 kg MD Marisela Ziegler Work Phone: [facility] 06-28-2022 21:02-0500 Diastolic blood pressure 81 mm[Hg] Et3 [facility] 06-28-2022 21:02-0500 Heart rate 116 /[facility] 21:02-0500 Respiratory rate 18 /min Et3 [facility] 06-28-2022 21:02-0500 SaO2% (BldA) [Mass fraction] 97 % [facility] 21:02-0500 Systolic blood pressure 115 mm[Hg] Et3 [facility] 03-16-2022 14:31-0400 Blood Pressure Location Randi DANIELA [facility] [place] 03-16-2022 14:31-0400 Diastolic blood pressure 90 mm[Hg] Randi VALENCIA [facility] [place] 03-16-2022 14:31-0400 Heart rate 76 /min Randi VALENCIA [facility] [place] 03-16-2022 14:31-0400 Respiratory rate 16 /min Randi VALENCIA [facility] [place] 03-16-2022 14:31-0400 Systolic blood pressure 128 mm[Hg] Randi VALENCIA [facility] [place] Encounters Encounter Date Encounter Type Care Provider Facility Start: 10-19-2023 End: 10-19-2023 ambulatory EVA BRICE Not Available Start: 04-16-2023 End: 04-19-2023 Evaluation and management of inpatient MD Marisela Ziegler Work Phone: [facility]-[address] [place] [address] Work Phone: Start: 12-08-2022 End: 12-09-2022 Pre-admission assessment Ez Goldberg [facility] Start: 12-03-2022 End: 12-03-2022 Emergency department patient visit Wendie Casas Facility:[facility] Start: 12-03-2022 End: 12-03-2022 Emergency department patient visit MD Marisela Ziegler Work Phone: [facility]-Emergency Room Work Phone: Start: 10-25-2022 End: 10-25-2022 Emergency department patient visit [facility] Facility: Start: 10-25-2022 End: 10-26-2022 ambulatory [facility] Facility: Start: 07-06-2022 End: 07-06-[address] MARISELA ZIEGLER Facility: Start: 06-28-2022 End: 07-15-2022 ambulatory UNKNOWN PROVIDER Facility:[facility] Start: 06-28-2022 End: 06-28-2022 ambulatory [facility] Emergenc y Triage, Treat and Transport Start: 06-28-2022 End: 06-28-2022 Emergency department patient visit [facility] Emergency Triage, Treat and Transport Comment on above: Arrived Start: 04-17-2022 End: 04-17-[address] MARISELA ZIEGLER Facility:[facility] Start: 03-16-2022 End: 03-16-2022 Patient encounter procedure [facility]i [facility] Nill/Said Colten Start: 02-18-2022 Transcribe Orders Gabrielle Yeboah MA [facility] Comment on above: Social anxiety disor mathew (Primary Dx) Procedures Date Procedure Procedure Detail Performing Clinician Start: 12-03-2022 Plain chest X-ray MD Patterson Work Phone: Start: 03-22-2022 Colonoscopy Ez gar Start: 03-22-2022 Esophagogastroduodenoscopy Ez Goldberg Plan of Treatment Date Care Activity Detail Author Start: 01-10-2050 Shingles (RZV) Vaccine (1 of 2) Shingles (RZV) Vaccine (1 of 2) [facility] Start: 04-19-2023 [facility] Start: 04-16-2023 Hospital admission [facility] Start: 05-15-2022 Influenza vaccination Influenza Vaccine (#1) [facility] Start: 01-10-2018 Hepatitis C screening Hepatitis C Antibody [facility] Start: 01-10-2018 Tetanus + diphtheria + acellular pertussis vaccine (product) Tdap Booster [facility] Start: 2016 Meningococcal B (Bexsero,OMV) Vaccine (Optional,16-23 years) (#1) Meningococcal B (Bexsero,OMV) Vaccine (Optional,16-23 years) (#1) [facility] Start: 01-10-2015 HIV screening HIV Test [facility] Start: 01-10-2011 Vaccination for human papillomavirus Human Papilloma (HPV) Vaccine (1 - Male 2-dose series) [facility] Start: 2000 COVID-19 Vaccine (#1) COVID-19 Vaccine (#1) [facility] Patient Education [facility] Work Phone: Patient referral [facility] Work Phone: Payers Date Payer Category Payer Self-pay 2022 Unknown [id number] 2022 Unknown 2000 Unknown [id number] 2000 Unknown [id number] 2000 Unknown [id number] 2000 Unknown [id number] 2000 Unknown [id number] 1959 Unknown [id number] [place] H[place] [id number] 40 Unknown [id number] Unknown [id number] Social History Date Type Detail Facility Tobacco smoking status NHIS Tobacco smoking consumption unknown [facility] Start: 2000 Sex Assigned At Not on file [facility] Start: 03-16-2022 Tobacco smoking status Ex-smoker (finding) [facility] [place] Sex Assigned At Male [facility] [place] Start: 12-03-2022 End: 04-17-2023 Tobacco smoking status NHIS Smoker (finding) [facility] Start: 2000 Sex Assigned At Male [facility] Goals Date Patient Goal Desired Activity /State Functional Status Date Assessment Result Facility 04-19-2023 Functional status Patient at Baseline [facility] Work Phone: 03-16-2022 Functional Status N/A [facility] [place] Mental Status Date Assessment Result Facility 04-19-2023 Cognitive function Cognitive Sta tus Patient at Baseline [facility] Work Phone: Clinical Notes 06-28-2022 to 04-19-2023 Note Date & Type Note Facility 04-19-2023 Discharge summary Note Date/Time April 19, 2023 9:44am [facility] [address] [place] [address] Discharge Summary Signed Patient: Rickie Oscar MR#: [id number] : 2000 Acct:[id number] Age/Sex: 23 / M Adm Date: 3 Loc: Room: [address] [place] [address]: Margareth Romeo MD Copies to: MD Jw العراقي MD Douglas M Hoy, MD~ Providers Date of Discharge: 04/19/23 Discharging Provider: Jw Chow Primary Care Provider: Marisela Ziegler Discharge Diagnosis (1) Bipolar disorder: (2) Alcohol use disorder: Final Diagnosis Final Discharge Diagnosis: Unspecified bipolar disorder Alcohol use disorder Summary Hospital Course Hospital course: According to admission note: Mr. Oscar is a 23 year old male with a history of bipolar disorder and anxiety who presents for inpatient admission due to OD of metoprolol with the intention to kill himself. Reportedly, patient took 15-20 metoprolol 25mg. In emergency department, he denied SI and wanted to leave, however, he was pink slipped. He reports recent breakup with his fianc?e which increased his depression and led to drinking alcohol, which then led to SI. He worries that he will no longer be able to see his son due to the breakup. He states that what he did was dumb and he shouldn't have done it as he would never want to leave his son without a dad. Patient was personally seen by me on the day of the encounter.? I reviewed the history and performed the mcgee elements of the assessment.? I formulated the plan of care and confirmed this with the medical student as noted below At the time of the interview, he presents as depressed. Patient was regretful ofhis decision. He acknowledges himself that he should stay away from alcohol use.He said he became impulsive due to multiple psychosocial stressors and would like to avoid that in the future. Reports a diagnosis of Bipolar disorder by and said Vraylar has been effective for him. He does not feel that he needs any med adjustments, just better coping skills.? He denies current SI, HI,or hallucinations.? He does not appear to be manic. Past psych history: Patient reports social anxiety and bipolar disorder Past hospitalizations: denies Past suicide attempts: denies Family psych history: Patient at 15 yo reports history of finding his dad hanging and Previous medications: Patient reports trying 7-8 bipolar meds in the past. He currently takes Vraylar which works well for him. He also takes clonazepam as needed for social anxiety. Alcohol and drug use: Rarely drinks alcohol (a beer or two every month or so), vapes daily Living: Lives with 3mo son Employment: [employer] for the past 2 months Relationships:?Patient identifies his mom and best friend Saul as his support system Patient is continued on Vraylar. He denies any further suicidality during his hospitalization. He reported that the alcohol at lunch today with what happened. He reported that the Vraylar generally worked well for him. He reported that he agreed that what happened and was more hopeful this time went on. He did not exhibit any further behavior concerning for suicidality. He didnot have any conflict with peers or staff. He attended occasional groups. His sleep and appetite were normal. On the day of discharge, he continued to deny any suicidality. He he reported that he was not depressed and stated that he had a good life and had a lot of things to live for. He was comfortable with discharge plan home and following up with outpatient services. Suicide risk assessment: Chronic: gender, single Modifiable: depression - good response to treatment, suicidality - good responseto treatment and no behavior concerning for suicidality during admission, impulsivity - good response to treatment Protective: supportive family, good therapeutic alliance, availability of local mental health services and willingness to follow up, future oriented, employed, housing, seeking treatment, low symptom severity, ability to find meaning in life Other Factors: No access to lethal means Current Suicide Risk Assessment: Low given chronic, modifiable and protective risk factors. Patient was made aware of 07/03 emergency services of crisis center. Patient advised to call 911 or go to the nearest ER in case of a crisis (including having thoughts of harming self or others). Time spent discussing smoking cessation with patient: 3 to 10 minutes Condition Condition at Discharge: Stable Status at Discharge Cognitive/behavioral status at discharge: Mental Status Exam: Appearance: grossly normal Mental Status: mental status grossly normal Mood: Euthymic mood Affect: Normal affect Speech and Movement: speech and movement normal and speech clear Attitude: cooperative Thought Process: normal Thought Content: Denied hallucinations, no homicidality and no suicidality Insight: Good Judgment: Good Functional status at discharge: independent ambulation Overall status at discharge: patient is back to baseline Time Spent with Patient Time spent providing/coordinating discharge services (# min): 30 Exam Physical Exam Vital Signs: Temp Pulse Resp BP Pulse Ox O2 Del Method 97.9 F 67 16 129/82 95 Room Air 04/19/23 07:11 04/19/23 07:11 04/19/23 07:11 04/19/23 07:11 04/19/23 07:11 04/19/23 07:11 Discharge Plan Discharge Plan Patient Disposition: Home Activity: No Activity Restriction Diet: Regular Additional Instructions: Regular Diet No Activity Restrictions Instructions: Depression, Adult (DC), [facility]al Health DC Instructions Prescriptions: New nicotine (polacrilex) 2 mg Gum 2 mg buccal Q2H PRN (Reason: Nicotine Cravings) Qty: 30 0RF Continued Vraylar 3 mg Capsule 3 mg PO DAILY clonazepam 0.5 mg tablet 0.5 mg PO BID PRN (Reason: OCD) Patient Comments: TAKE ONE TABLET BY MOUTH TWICE A DAY NEEDED FOR 14 DAYS For Obsessive Complusive Disorder. Follow Up: [facility] Hotline [Outside] [facility] [Outside] - 04/25/23 8:00 am ( manager travel: Tuesday04/20/23 ROSIBEL Field will call you in the afternoon. Intake: Tuesday04/25/23 at 8:00 am, please bring a copy of your photo ID, insurance card, and proof of household income.? Then 8:30 am with Caroline for therapy. Nurse: 04/28/23 at 11:00 am with Lily. Please see nurse visit instructions sheet for information to bring. Psychiatry: Tuesday05/04/23 at 10:[address] Darling. Group: (Insert date/time here ) ) Marisela Ziegler MD [Primary Care Provider] - (Contact Dr. Marrufo office with any medical needs. ) Documented By: Jw Chow MD 04/19/23942 Signed By: <Electronically signed by Jw Chow MD> 04/19/23 1128 [facility] Work Phone: 1(178) 525-551009-04-2023 Progress note Author Jw Chow [facility] April 18, 2023 11:54am Note Date/Time April 18, 2023 11:54am [facility] [address] [place] [address] Psychiatry Progress Note Signed Patient: Rickie Oscar MR#: [id number] : 2000 Acct:[id number] Age/Sex: 23 / M Adm Date: 3 Loc: Room: [address] [place] [address] Type : ADM IN Attending Dr: Margareth Romeo MD Copies to: ~ Date of Service: 04/18/2023 Subjective Subjective Narrative: Patient reports that he is so bored. He denies SI, HI, hallucinations. He is eating well and reports that he is probably sleeping too much. No new concernsto report. Mental Status Exam Appearance: grossly normal Mental status: grossly normal Mood: depressed Affect: mood-congruent Speech and movement: Movement normal and speech clear Attitude: cooperative Thought Process: normal Thought Content: denies hallucinations, HI, SI Insight: fair Judgment: fair Patient was personally seen by me on the day of the encounter. I reviewed the history and performed the mcgee elements of the physical examination. I formulated the plan of care and confirmed this with the medical student as notedbelow. Patient reported that he is doing fine. He denied any current suicidality. He reported that he was regretful of what happened. He reported that the Vraylar was helping him and does not want to change the medications at this time. Exam Physical Exam Vital Signs: Temp Pulse Resp BP Pulse Ox O2 Del Method 97.7 F 61 18 142/77 H 99 Room Air 04/18/23 07:25 04/18/23 07:25 04/18/23 07:25 04/18/23 07:25 04/18/23 07:25 04/18/23 07:25 Assessment/Plan Assessment/Plan (1) Bipolar disorder: Code(s): F31.9 - Bipolar disorder, unspecified Status: Acute (2) Alcohol use disorder: Code(s): F10.90 - Alcohol use, unspecified, uncomplicated Status: Acute Plan Patient was admitted to for depression and OD. Patient is not willing to consider other medications at this time, continue PO Vraylar 3mg daily Anticipate discharge tomorrow if mood remains stable Continue to monitor mental status, safety Encourage group participation and medication adherence Risk, benefits, and alternatives of treatment explained Documented By: Jw Chow MD 04/18/23913 Signed By: <Electronically signed by Jw Chow MD> 04/18/23 1154 [facility] Work Phone: 1(922) 875-304009-03-2023 History and physical note Author Mack bustillo [facility] April 17, 2023 1:23pm Note Date/Time April 17, 2023 1:23pm [facility] [address] [place] [address] Psychiatry H&P Signed Patient: Rickie Oscar MR#: [id number] : 2000 Acct:[id number] Age/Sex: 23 / M Adm Date: 3 Loc: Room: [address] [place] [address] Type: ADM IN Attending Dr: Margareth Romeo MD Copies to: MD Marisela العراقي MD~ Date of Service: 04/17/2023 HPI History of Present Illness History of present illness: Mr. Oscar is a 23 year old male with a history of bipolar disorder and anxiety who presents for inpatient admission due to OD of metoprolol with the intention to kill himself. Reportedly, patient took 15-20 metoprolol 25mg. In emergency department, he denied SI and wanted to leave, however, he was pink slipped. He reports recent breakup with his fianc?e which increased his depression and led to drinking alcohol, which then led to SI. He worries that he will no longer be able to see his son due to the breakup. He states that what he did was dumb and he shouldn't have done it as he would never want to leave his son without a dad.Patient was personally seen by me on the day of the encounter. I reviewed the history and performed the mcgee elements of the assessment. I formulated the planof care and confirmed this with the medical student as noted below At the time of the interview, he presents as depressed. Patient was regretful ofhis decision. He acknowledges himself that he should stay away from alcohol use.He said he became impulsive due to multiple psychosocial stressors and would like to avoid that in the future. Reprots a diagnosis of Bipolar disorder by and said Vraylar has been effective for him. He does not feel that he needs any med adjustments, just better coping skills. He denies current SI, HI,or hallucinations. He does not appear to be manic. Past psych history: Patient reports social anxiety and bipolar disorder Past hospitalizations: denies Past suicide attempts: denies Family psych history: Patient at 15 yo reports history of finding his dad hanging and Previous medications: Patient reports trying 7-8 bipolar meds in the past. He currently takes Vraylar which works well for him. He also takes clonazepam as needed for social anxiety. Alcohol and drug use: Rarely drinks alcohol (a beer or two every month or so), vapes daily Living: Lives with 3mo son Employment: [employer] for the past 2 months Relationships:?Patient identifies his mom and best friend Saul as his support system Review of Systems Constitutional: denies unintended weight loss, fever, fatigue Neuro: denies dizziness/lightheadedness, numbness/tingling in extremities HEENT: denies vision/hearing changes Pulmonary: denies SOB, cough, wheezing Cardiac: denies chest pain/pressure, palpitations GI: denies abdominal pain, heartburn, N/V, constipation and diarrhea : denies dysuria, hematuria, polyuria Physical Exam General: no acute distress Skin: intact HEENT: head atraumatic, face symmetrical Lungs: Breathing normally without excessive effort Cardio: regular rate and rhythm Abdomen: normal inspection, non-distended Musculoskeletal: moves all extremities symmetrically, normal strength globally Neuro: alert and oriented x3 CNI: normal olfaction CNII: visual voss intact CNIII, IV, : EOMI intact, no nystagmus CNV: Sensation intact to light touch CNVII: Raises eyebrows, smile/frown, puff out cheeks symmetrically CNIX,X: voice normal, soft palate elevation normal, symmetrical CNXI: Shoulder shrug full, symmetric CNXII: Tongue protrusion midline Mental Status Exam Appearance: grossly normal Mental Status: mental status grossly normal Mood: Depressed mood Affect: Mood congruent Speech and Movement: speech and movement normal and speech clear, regular rate, rhythm, volume, and tone. Non-pressured Attitude: cooperative Thought Process: normal Thought Content: Denies hallucinations, denied homicidality, reported suicidality Insight: Fair Judgment: Fair [facility] Medical History (Updated 04/17/23 @ 09:00 by Casi Eller) Sick sinus syndrome Social History Smoking Status: Current every day smoker Tobacco Type: cigarettes Substance Use Type: Alcohol Meds Medications and Allergies Allergies No Known Allergies Allergy (Verified 12/03/22 12:49) Home Medications cariprazine 3 mg capsule (Vraylar) 3 mg PO DAILY 04/16/23 [History Confirmed 04/16/23] clonazepam 0.5 mg tablet 0.5 mg PO BID PRN OCD 04/16/23 [History Confirmed 04/16/23] Exam Physical Exam Vital Signs: Temp Pulse Resp BP Pulse Ox O2 Del Method 97.6 F 80 18 116/71 96 Room Air 04/16/23 19:30 04/16/23 19:30 04/16/23 19:30 04/16/23 19:30 04/16/23 19:30 04/16/23 19:30 Assessment/Plan (1) Alcohol use disorder: Code(s): F10.90 - Alcohol use, unspecified, uncomplicated Status: Acute (2) Bipolar disorder: Code(s): F31.9 - Bipolar disorder, unspecified Status: Acute Plan Patient was admitted to for depression and OD. Patient is not willing to consider other medications at this time, continue PO Vraylar 3mg daily Will discuss adding naltrexone in follow-up visits to reduce alcohol use and subsequent impulsive behavior Continue to monitor mental status, safety Encourage group participation and medication adherence Risk, benefits, and alternatives of treatment explained Documented By: Mack Romeo MD [id number] Signed By: <Electronically signed by Mack Romeo MD> 04/17/23 1323 [facility] Work Phone: 1(251) 125-423503-13-2023 NoteEducation Materials Gastroenterology Nausea and Vomiting, Adult Nausea is the feeling that you have an upset stomach or that you are about to vomit. Vomiting is when stomach contents are thrown up and out of the mouth as a result of nausea. Vomiting can make you feel weak and cause you to become dehydrated. Dehydration can make you feel tired and thirsty, cause you to have a dry mouth, and decrease how often you urinate. Older adults and people with other diseases or a weak disease-fighting system (immune system) are at higher risk for dehydration. It is important to treat your nausea and vomiting as told by your health care provider. Follow these instructions at home: Watch your symptoms for any changes. Tell your health care provider about them. Follow these instructions to care for yourself at home. Eating and drinking ? Take an oral rehydration solution (ORS). This is a drink that is sold at pharmacies and retail stores. ? Drink clear fluids slowly and in small amounts as you are able. Clear fluids include water, ice chips, low-calorie sports drinks, and fruit juice that has water added (diluted fruit juice). ? Eat bland, olpz-lq-bgmziu foods in small amounts as you are able. These foods include bananas, applesauce, rice, lean meats, toast, and crackers. ? Avoid fluids that contain a lot of sugar or caffeine, such as energy drinks, sports drinks, and soda. ? Avoid alcohol. ? Avoid spicy or fatty foods. General instructions ? Take ixde-akm-qikshuy and prescription medicines only as told by your health care provider. ? Drink enough fluid to keep your urine pale yellow. ? Wash your hands often using soap and water. If soap and water are not available, use hand slitter helper. ? Make sure that all people in your household wash their hands well and often. ? Rest at home while you recover. ? Watch your condition for any changes. ? Breathe slowly and deeply when you feel nauseated. ? Keep all follow-up visits as told by your health care provider. This is important. Contact a health care provider if: ? Your symptoms get worse. ? You have new symptoms. ? You have a fever. ? You cannot drink fluids without vomiting. ? Your nausea does not go away after 2 days. ? You feel light-headed or dizzy. ? You have a headache. ? You have muscle cramps. ? You have a rash. ? You have pain while urinating. Get help right away if: ? You have pain in your chest, neck, arm, or jaw. ? You feel extremely weak or you faint. ? You have persistent vomiting. ? You have vomit that is bright red or looks like black coffee grounds. ? You have bloody or black stools or stools that look like tar. ? You have a severe headache, a stiff neck, or both. ? You have severe pain, cramping, or bloating in your abdomen. ? You have difficulty breathing, or you are breathing very quickly. ? Your heart is beating very quickly. ? Your skin feels cold and clammy. ? You feel confused. ? You have signs of dehydration, such as: ? Dark urine, very little urine, or no urine. ? Cracked lips. ? Dry mouth. ? Sunken eyes. ? Sleepiness. ? Weakness. These symptoms may represent a serious problem that is an emergency. Do not wait to see if the symptoms will go away. Get medical help right away. Call your local emergency services (911 in the [place] Do not drive yourself to the hospital. Summary ? Nausea is the feeling that you have an upset stomach or that you are about to vomit. As nausea gets worse, it can lead to vomiting. Vomiting can make you feel weak and cause you to become dehydrated. ? Follow instructions from your health care provider about eating and drinking to prevent dehydration. ? Take pvpt-mhm-teyhwsa and prescription medicines only as told by your health care provider. ? Contact your health care provider if your symptoms get worse, or you have new symptoms. ? Keep all follow-up visits as told by your health care provider. This is important. This information is not intended to replace advice given to you by your health care provider. Make sure you discuss any questions you have with your health care provider. Document Revised: 10/21/2021 Document Reviewed: 01/09/2019 [employer] Patient Education ? 2021 [employer] Food Choices to Help Relieve Diarrhea, Adult Diarrhea can make you feel weak and cause you to become dehydrated. It is important to choose the right foods and drinks to: ? Relieve diarrhea. ? Replace lost fluids and nutrients. ? Prevent dehydration. What are tips for following this plan? Relieving diarrhea ? Avoid foods that make your diarrhea worse. These may include: ? Foods and beverages sweetened with high-fructose corn syrup, honey, or sweeteners such as xylitol, sorbitol, and mannitol. ? Fried, greasy, or spicy foods. ? Raw fruits and vegetables. ? Eat foods that are rich in probiotics. These include foods such as yogurt an (more content not included)...[id number] History of Present illness Narrative* Mauri Cabrera DO - 06/28/2022 9:03 PM EST Images from the original note were not included. EMERGENCY TRIAGE, TREAT AND TRANSPORT (ET3) DOCUMENTATION OF TELEHEALTH VISIT Date / Time: 06/28/20222044 Name: Rickie Oscar : 2000 SSN: (Not on file) EMS Agency: [facility] [x] Verbal consent obtained [] Implied consent - patient with potential emergency medical condition requiring assessment of capacity to refuse treatment and/or transport VITAL SIGNS: see flowsheet documentation Reason for Telehealth Visit: Chief Complaint Patient presents with Fainting History of Present Ilness: 22 yo male with pmh bipolar and sick sinus syndrome who was in an argument with family at home whenhad syncope and fall from standing. Pos LOC. No AC. No ETOH or substance abuse. Pt denies head injury or pain. He is ambulatory at his baseline and refusing EMS transport. Present on scene with his mother/family. Denies injury Pt is somewhat anxious and intermittently yelling at family in back ground Additional pertinent PMHx, SocHx, FamHx: PMH as above Meds no AC, quinazipem Social no ETOH./drugs Review of Systems: = Denies the following: PAUL, neck pain, back pain or injury Exam: General: Awake, no distress ENT: normocephalic, atraumatic Pulmonary: No respiratory distress Cardiovascular: Well perfused Neurologic: Oriented to person, place, time and events. Moving all extremities equally. Psychiatric: Appropriate. Good insight and judgement. Medical Decision Makin yo male with syncope during argument. EKG NSR, RR, no STEMI. Pt with normal BL on scene. He is awake, alert in NAD with normal neuro. Pt declining ems transport. Educated on avoidance of stressfull situations. Pt educated on strict call 911 or go to ED precautions. No questions. Ok for EMS refusal of transport. Disposition Supported by Telehealth Assessment: ET3 transport decisions: Refused transport EMS Disposition Reported: Same ET3 Encounter Completed by: Mauir Cabrera DO [facility] Future Appointments Appointment Date:03/22/2022 07:30:00 AM Scheduled Provider: Location:[facility] Appointment Type:Surgery FT Future Scheduled Tests Laboratory* T4 & TSH 03/25/21 * Lipid Panel 03/25/21 General Surgery [place] [facility] note* Diagnosis Social anxiety disorder- Primary Social phobia [facility] Diagnosis Syncope, unspecified syncope type- Primary Stress Other psychological or physical stress, not elsewhere classified documented in this encounter [facility]No assessment [facility] Phone: [facility]* Diagnosis Onset Date Resolution Status Alcohol use disorder acute Bipolar disorder acute [facility] Work Phone: Hospital course Narrative No data available for this section [facility] Discharge instructions No data available for this section General [facility] Discharge instructions Additional Instructions We discussed her labs and imaging. We discussed if your chest pain returns or worsens, including not limited to, worsening pain, worsening symptoms associated with the chest pain including but limited to, fevers, chills, chest pain, cough, congestion, shortness of breath, episodes of sweating, abdominal pain and nausea associated with your chest pain you should return the emergency department. Your general department as your symptoms worsen including vomiting, as listed before. I do recommend that you follow-up with your primary care provider, we discussed you have follow-up with your cardiology team as scheduled next week. Please continue take your medications as previously prescribed.[facility] Work Phone: Hospital Discharge instructions Additional Instructions Regular Diet No Activity Rest[facility]ions[facility] Work Phone: Progress note No data available for this section General Surgery [place] Reason for Referral Specialty Diagnoses / Procedures Referred By Anthony benz Referred To Contact Psychiatry Diagnoses Social anxiety disorder System, Provider Not In [facility] [address] [place] [address] Referral ID Status Reason Start Date Expiration Date Visits Requested Visits Authorized [id number] Pending Review Specialty Services Required/Pat ient's Best Interest 02/18/2022 02/18/2023 1 1 Summary Purpose Family History No Family History Records FoundNo Family History Records FoundNo Family History Records FoundNo Family History Records FoundNo Family History Records FoundNo Family History Records Found Advance Directives No Advanced Directives Records Found Advance Directive Response Recorded Date/ Time Advance Directives No December 03, 2 023 2:18pm Chief Complaint and Reason for Visit Chief Complaint chest pain Chief Complaint Depression, OD Reason for Visit Alcohol use disorder Bipolar disorder Additional Source Comments Care Team (unrecognized sect ion and content) Team Status: Active Member Role Status Dates Marisela Ziegler MD Primary Care Provider Active Team Status: Inactive Member Role Status Dates Marisela Ziegler MD Primary Care Provider Active Wendie Casas DO Emergency Provider Active Team Status: Inactive Member Role Status Dates Marisela Ziegler MD Primary Care Provider Active Margareth Romeo MD Admit Provider, Attending Pr reanna Active Reason for Visit (unrecogniz ed section and content) Reason Comments Fainting (unrecognized sect ion and content) No Status Records FoundNo Status Records FoundNo Status Records FoundNo Status Records FoundNo Status Records FoundNo Status Records Found INFORMATION SOURCE (unrecogn ized section and content) DATE CREATED AUTHOR 07/13/2022 [facility] DATE CREATED AUTHOR AUTHOR'S ORGANIZ ATION 08/13/2022 [facility] DATE CREATED AUTHOR AUTHOR'S ORGANIZ ATION 11/01/2022 [facility] DATE CREATED AUTHOR AUTHOR'S ORGANIZ ATION 04/23/[address] [facility] DATE CREATED AUTHOR AUTHOR'S ORGANIZ ATION 10/20/2023 [facility] DATE CREATED AUTHOR AUTHOR'S ORGANIZ ATION 07/29/2024 [facility] Goals (unrecognized section and content) Goals may be documented in a n alternate section FOR RECORDS PERTAINING TO PATIENTS WHO ARE OR HAVE BEEN ENROLLED IN A CHEMICAL DEPENDENCY/SUBSTANCEABUSE PROGRAM, SOME INFORMATION MAY BE OMITTED. This clinical summary was aggregated from multiple sources. Caution should be exercised in using it in the provision of clinical care. This summary normalizes information from multiple sources, and as a consequence, information in this document may materially change the coding, format and clinical context of patient data. In addition, data may be omitted in some cases. CLINICAL DECISIONS SHOULD BE BASED ON THE PRIMARY CLINICAL RECORDS. [facility]. provides no warranty or guarantee of the accuracy or completeness of information in this document.
--- OUTSIDE RECORDS SUMMARY | 2025-02-23 15:59 | XMS_ITS | Patient Health Record ---
Author Organization [facility] [place] Address [address] [place] [address] Care Team Providers Care Golf Ball Trimmer Name Role Phone Michel Ziegler Primary Care Provider Allergies No Known Allergies Reason For Referral No Information Medications Medication SIG (Take, Route, Frequency, Duration) Notes Start Date End Date Status Protonix 40 MG 1 tablet Orally Once a day for 30 days 07/20/2024 Active levoFLOXacin 750 MG 1 tablet Orally Once a day for 10 days 04/23/2024 Active Remeron 30 MG 1 tablet at bedtime Orally Once a day for 30 days 12/28/2022 Active Amoxicillin-Pot Clavulanate 875-125 MG 1 tablet Orally every 12 hrs for 10 days 04/11/2024 Active Sucralfate 1 GM 1 tablet on an empty stomach Orally qid for 30 days 07/20/2024 Active Nicorette 4 MG 1 piece chew for 30 minutes as needed Mouth/Throat every 6 hours PRN 07/24/2024 Active Amoxicillin-Pot Clavulanate 875-125 MG 1 tablet Orally every 12 hrs for 10 days 10/15/2024 Active Vraylar 4.5 MG 1 capsule Orally Onc e a day Active KlonoPIN 0.5 MG 1 tablet Orally BID- prn for 14 days 04/11/2024 Active Social History AUDIT-C (Standard) Question Answer Notes Did you have a drink containing alcohol in the p ast year? No Points 0 Interpretation Negative Problems Problem Type SNOMED Code ICD Code Onset Dates Problem Status W/U Status Risk Notes Problem 1464918 Bipolar disorder, currently in remission, most recent episode unspecified (F31.70) Active confirmed Problem 15009048 Anxiety disorder, unspecified (F41.9) Active confirmed Problem Anxiety (38867421) Anxiety (F41.9) Active confirmed Problem Depression (699651506) Depression (F32.9) Active confirmed Problem 770175590 Obsessive-compul sive disorder, unspecified (F42.9) Active confirmed Vital Signs Blood pressure diastolic 98 mm Hg 04/11/2024 Height 68 in 04/11/2024 Blood pressure systolic 158 mm Hg 04/11/2024 Weight 213.8 lbs 04/11/2024 BMI 32.5 kg/m2 04/11/2024 Encounters Encounter Location Date Provider Diagnosis [facility] [address] [facility] [place] [address] 04/23/2024 [facility] [address] [facility] [place] [address] 04/23/2024 [facility] [address] [facility] [place] [address] 07/20/2024 [facility] [address] [place] [place] [address] 07/23/2024 [facility] [address] [facility] [place] [address] 08/03/2024 [facility] [address] [facility] [place] [address] 10/15/2024 [facility] [address] [facility] [place] [address] 04/11/2024 Michel Ziegler Acute non-recurrent sinusitis, unspecified location J01.90 ; Nasal congestion R09.81 ; Acute bronchitis, unspecified organism J20.9 ; Obsessive-compulsive disorder, unspecified F42.9 and Bipolar disorder, currently in remission, most recent episode unspecified F31.70 Assessments Encounter Date Diagnosis (ICD Code) Assessment Notes Treatment Notes Treatment Clinical Notes Section Notes 04/11/2024 Acute non-recurrent sinusitis, unspecified location (ICD-10 - J01.90) Rest and drink more liquids, especially water. You may use a humidifier or vaporizer to help keep the drainage moist. Eqop-whh-mdqxlds Nasal Saline may help the stuffy and runny nose. Use Ibuprofen and or Tylenol as needed for fever, chills, body aches or pain. Children 5 years old should not be given dikk-ccc-llwnbxz cough and cold medications such as guaifenesin and dextromethorphan. If you're over age 5, you may try qynt-noy-jtnuslb cold medications such as guaifenesin and dextromethorphan, or multi-symptom cold reliever such as Dayquil to help reduce the symptoms. Antibiotics have been prescribed. You should take these until completed and follow the directions. Antibiotics can sometimes cause upset stomach, and in rare cases, serious allergic reactions or serious gastrointestinal problems. If you start having severe abdominal pain, severe vomiting, or bloody diarrhea, you should be reevaluated by your physician or urgent care immediately. Follow up with your Primary Care Provider or return to clinic if symptoms do not improve within 3-5 days 04/11/2024 Nasal congestion (ICD-10 - R09.81) 04/11/2024 Acute bronchitis, unspecified organism (ICD-10 - J20.9) Rest and drink more liquids, especially water. You may use a humidifier or vaporizer to help keep the drainage moist. Ibqz-nfi-ngkektv Nasal Saline may help the stuffy and runny nose. Use Ibuprofen and or Tylenol as needed for fever, chills, body aches or pain. Children 5 years old should not be given rhfp-ziy-vzreygj cough and cold medications such as guaifenesin and dextromethorphan. If you're over age 5, you may try ticw-zve-ddzxmjm cold medications such as guaifenesin and dextromethorphan, or multi-symptom cold reliever such as Dayquil to help reduce the symptoms. Antibiotics have been prescribed. You should take these until completed and follow the directions. Antibiotics can sometimes cause upset stomach, and in rare cases, serious allergic reactions or serious gastrointestinal problems. If you start having severe abdominal pain, severe vomiting, or bloody diarrhea, you should be reevaluated by your physician or urgent care immediately. Follow up with your Primary Care Provider or return to clinic if symptoms do not improve within 3-5 days. If you develop severe symptoms such as shortness of breath, repeated vomiting, coughing up blood, or chest pain you should go to the emergency room or call 911 04/11/2024 Obsessive-compu lsive disorder, unspecified (ICD-10 - F42.9) increasing vraylar to 4.5m may need 6 mg 04/11/2024 Bipolar disorder, currently in remission, most recent episode unspecified (ICD-10 - F31.70) Plan Of Treatment No Information Insurance Providers Payer Name Payer Address Payer Phone Subscriber Number Group Number Insured Name Patient Relationship to Insured Coverage Start Date Coverage End Date MMO [employer] [address] [place] [phone] [id number] Rickie Oscar Self - patient is the insured Medical (General) History Medical History History ICD Code Anxiety F41.9 Depression F32.9 Surgical History Surgery Date(Month/Year) Colonoscopy
--- OUTSIDE RECORDS SUMMARY | 2025-02-23 16:00 | XMS_ITS | Clinical Summary ---
Author Organization [facility] Address [address] [place] [address] Care Team Providers Care Border Patrol Officer Name Role Phone Catarino Ziegler MD Primary Care Provider [phone] Allergies No known active allergies Medications Cariprazine HCl (Vraylar) 3 MG capsule Take by mouth Active Social History Tobacco Use Types Packs/Day Years Used Date Smoking Tobacco: Never Assessed Sex and Gender Information Value Date Recorded Sex Assigned at Not on file Legal Sex Male 4:22 PM EST Gender Identity Not on file Sexual Orientation Not on file Last Filed Vital Signs Vital Sign Reading Time Taken Comments Blood Pressure 130/88 10/19/2023 5:06 PM EST Pulse 81 10/19/2023 5:06 PM EST Temperature 35.7 C (96.3 F) 10/19/2023 5:06 PM EST Respiratory Rate - - Oxygen Saturation 99% 10/19/2023 5:06 PM EST Inhaled Oxygen Concentration - - Weight 88.5 kg (195 lb) 10/19/2023 5:06 PM EST Height 172.7 cm (5' 8 ) 10/19/2023 5:06 PM EST Body Mass Index 29.65 10/19/2023 5:06 PM EST Plan of Treatment Not on file Care Teams Border Patrol Officer Relationship Specialty Start Date End Date Catarino Ziegler MD PCP - General Family Medicine 10/19/23
--- OUTSIDE RECORDS SUMMARY | 2025-02-23 16:00 | XMS_ITS | Clinical Summary ---
Author Organization [facility] Address [address] [place] [address] Care Team Providers Care Yarn Sorter Name Role Phone Catarino Ziegler MD Primary Care Provider [phone] Allergies No known active allergies Medications ARIPiprazole (ABILIFY) 10 MG tablet Take 10 mg by mouth daily 06/16/2015 Active LATUDA 40 MG TABS tablet 04/01/2015 Active QUEtiapine (SEROQUEL) 100 MG tablet 03/11/2015 Active Active Problems Problem Noted Date Diagnosed Date Orthostatic hypotension 06/19/2015 Insomnia 06/19/2015 Chest pain at rest 06/18/2015 Accelerated ventricular rhythm 06/18/2015 Social History Tobacco Use Types Packs/Day Years [...] Sign Reading Time Taken Comments Blood Pressure 119/70 06/18/2015 2:46 PM EST sta nding Pulse 90 06/18/2015 2:46 PM EST Temperature - - Respiratory Rate - - Oxygen Saturation 97% 06/18/2015 2:37 PM EST Inhaled Oxygen Concentration - - Weight 68.6 kg (151 lb 4.8 oz) 06/18/2015 2:37 P M EST Height 169 cm (5' 6.54 ) 06/18/2015 2:37 PM EST Body Mass Index 24.03 06/18/2015 2:37 PM EST Plan of Treatment Not on file Insurance Care Teams Yarn Sorter Relationship Specialty Start Date End Date Catarino Ziegler MD [address] [id number] PCP - General 07/07/15
--- OUTSIDE RECORDS SUMMARY | 2025-02-23 16:00 | XMS_ITS | Clinical Summary ---
Author Organization [facility] Address [address] [place] [address] Care Team Providers Care Computer Recycling Worker Name Role Phone Unavailable Primary Care Provider Unavailabl e Social History Tobacco Use Types Packs/Day Years Used Date Smoking Tobacco: Never Assessed [place] Safety & Environment Answer Date Rec orded Fear of Current or Ex-Partner Not on file Emotionally Abused Not on file 10/06/2023 Physically Abused Not on file 10/06/2023 Sexually Abused Not on file 10/06/2023 Physically or Sexually Abused Not on file Sex and Gender Information Value Date Recorded Sex Assigned at Not on file Legal Sex Male 12:39 AM EDT Gender Identity Not on file Sexual Orientation Not on file Plan of Treatment Not on file
--- OUTSIDE RECORDS SUMMARY | 2025-02-23 16:00 | XMS_ITS | Clinical Summary ---
Author Organization [facility] Address [id number] [address] [place] [address] Care Team Providers Care Bullet Lubricating Machine Operator Name Role Phone Catarino Ziegler MD Primary Care Provider [phone] Allergies No known active allergies Medications ARIPiprazole (ABILIFY) 15 mg tablet Take 15 mg by mouth once daily at bedtime. Active topiramate (TOPAMAX) 100 mg tablet Take 100 mg by mouth once daily at bedtime. Active metFORMIN XR (GLUCOPHAGE-XR) 500 mg 24 hr tablet Take 500 mg by mouth daily with dinner. Active fluticasone (FLONASE) 50 mcg/actuation nasal spray Administer 1 spray into each nostril daily. Active cetirizine (ZyrTEC) 10 mg tablet Take 10 mg by mouth 2 (two) times a day. Active traZODone (DESYREL) 50 mg tabletIndication s:Insomnia, unspecified type Take 1 tablet (50 mg total) by mouth nightly. 30 tablet 11 8 Active Active Problems Problem Noted Date Diagnosed Date Insomnia 04/25/2018 Accelerated ventricular rhythm 04/26/2017 Dysautonomia 04/26/2017 Chest pain at rest 04/26/2017 Family History Medical History Relation Name Comments No Known Problems Brother 1 No Known Problems Brother 2 Relation Name Status Comments Brother 1 Brother 2 Father Mother Alive Social History Tobacco Use Types Packs/Day Years Used Date Smoking Tobacco: Every Day Vaping/E-cigarettes Smokeless Tobacco: Never Alcohol Use Standard Drinks/Week Comments No 0 (1 standard drink = 0.6 oz pur e alcohol) Childcare Answer Date Recorded Childcare Unknown 01/17/2019 Employment Answer Date Recorded Employment Unknown 01/17/2019 Purpose - Life Answer Date Recorded Purpose and direction in life Unknown Sex and Gender Information Value Date Recorded Sex Assigned at Not on file Legal Sex Male 12:14 PM EDT Gender Identity Not on file Sexual Orientation Not on file Last Filed Vital Signs Vital Sign Reading Time Taken Comments Blood Pressure 141/79 04/25/2018 1:08 PM EDT sta nding Pulse 87 04/25/2018 1:08 PM EDT Temperature - - Respiratory Rate 18 04/26/2017 1:10 PM EDT Oxygen Saturation - - Inhaled Oxygen Concentration - - Weight 88.9 kg (196 lb) 04/25/2018 1:06 PM EDT Height 171.5 cm (5' 7.52 ) 04/25/2018 1:06 PM ED T Body Mass Index 30.23 04/25/2018 1:06 PM EDT Plan of Treatment Health Maintenance Due Date Last Done Comments Depression Screening 2012 Tobacco Screening 2012 Adult BMI Screening 01/10/2018 DTaP,Tdap and Td Vaccines (1 - Tdap) 01/10/2019 Influenza Vaccine 04/15/2025 Medical Devices Not on file Insurance [employer] [facility] [employer] Care Teams Bullet Lubricating Machine Operator Relationship Specialty Start Date End Date Catarino Ziegler MD PCP - General 04/26/17
--- OUTSIDE RECORDS SUMMARY | 2025-02-23 16:00 | XMS_ITS | Clinical Summary ---
Author Organization [facility] Address [address] [place] [address] Care Team Providers Care Bridal Gown Fitter Name Role Phone System, Provider Not In Primary Care Provider Un available Social History Tobacco Use Types Packs/Day Years Used Date Smoking Tobacco: Never Assessed Sex and Gender Information Value Date Recorded Sex Assigned at Not on file Legal Sex Male 8:06 AM EDT Gender Identity Not on file Sexual Orientation Not on file Plan of Treatment Health Maintenance Due Date Last Done Comments Tetanus: Every 10yrs 2000 Wellness Visit 01/10/2003 Depression Screening/Follow- Up (PHQ-2/9) 2012 HIV Screening 01/10/2015 HPV Vaccines (1 - Male 3-dos e series) 01/10/2015 Hepatitis C Screening 01/10/2018 COVID-19 Vaccine (2023-2 5 season) 2024 Influenza Vaccine (#1) 2025 Pneumococcal Vaccine: Ped or At-Risk Aged Out No longer eligible b ased on patient's age to complete this topic Insurance [employer] [employer] Care Teams Bridal Gown Fitter Relationship Specialty Start Date End Date System, Provider Not In PCP - General 03/01/22
[2025-02-23 16:10] LABS: Hematocrit 48.1 % (42.0-54.0); Hemoglobin 17.4 g/dL (14.0-18.0); Mean Corpuscular HGB Conc 36.2 g/dL (29.9-35.2); Mean Corpuscular Hemoglobin 31.5 pg (25.9-34.0); Mean Corpuscular Volume 87.0 fL (80.0-94.0); Platelet Count 287 10^3/uL (150-450); Red Blood Count 5.53 10^6/uL (4.70-6.10); White Blood Count 20.8 10^3/uL (4.0-11.0)
[2025-02-23] MEDS: IPRATROPIUM/ALBUTEROL SULFATE 3 ML AMPUL.NEB IH (16:13)
[2025-02-23] MEDS: METHYLPREDNISOLONE SOD SUCC PF 125 MG/2 ML VIAL IVP (16:20)
[2025-02-23 16:24] LABS: Alanine Aminotransferase 47 U/L (16-63); Albumin Globulin Ratio 1.1; Albumin Level 4.0 g/dL (3.4-5.0); Alkaline Phosphatase 155 U/L (46-116); Anion Gap 15.3; Aspartate Amino Transferase 27 U/L (15-37); Blood Urea Nitrogen 11.0 mg/dL (7.0-18.0); Calcium 9.3 mg/dL (8.5-10.1); Carbon Dioxide 25.4 mmol/L (21.0-32.0); Chloride 107 mmol/L (98-107); Estimated GFR (African America >60 (>=60 mL/min/1.73m^2); Estimated GFR (Non-African Ame >60 (>=60 mL/min/1.73m^2); Globulin 3.7 g/dL; Glucose 86 mg/dL (74-106); Lactate/Lactic Acid 1.0 mmol/L (0.4-2.0); Potassium 3.7 mmol/L (3.5-5.1); Sodium 144 mmol/L (136-145); Total Protein 7.7 g/dL (6.4-8.2)
[2025-02-23 16:40] LABS: Basophils Abs Manual 0.20 10^3/uL (0.00-0.10); Basophils Percent Manual 1.0 % (0.2-2.0); Eosinophils Absolute Manual 4.16 10^3/uL (0.00-0.70); Eosinophils Percent Manual 20.0 % (0.9-7.0); Lymphocytes Absolute Manual 3.74 10^3/uL (1.20-3.80); Lymphocytes Percent Manual 18.0 % (20.5-60.0); Monocytes Absolute Manual 0.41 10^3/uL (0.30-0.80); Monocytes Percent Manual 2.0 % (1.7-12.0); Segmented Neut Absolute Manual 10.19 10^3/uL (1.4-6.5); Segmented Neutrophils % Manual 49.0 (43.0-75.0)
--- NOTE | 2025-02-23 16:51 | ED.SOB1 ---
HPI - SOB/Dyspnea General Chief Complaint: Shortness of Breath/Dyspnea Stated Complaint: SHORTNESS OF BREATH Time Seen by Provider: 02/23/25 15:53 Source: patient and family Mode of arrival: walk-in Limitations: no limitations History of Present Illness HPI Narrative: The patient is a 25-year-old male with no significant known past medical history is presented to the ER with shortness of breath, shortness of breath has been progressively getting worse over the last week although over the last 24 hours it has been severe, he has been having even shortness of breath at rest for the last 24 hours before that it was only with exertion, there is a cough with clear sputum and the patient admits that he vapes very frequently as well as use marijuana on a daily basis The patient denies any chest pain nausea vomiting or any other concerns Had never been diagnosed with any cardiac or lung issues Upon arrival the patient breathing was a distress and he is speaking in one-word sentences and his pulse ox reaching only 90% on room air Related Data Home Medications ?Medication ?Instructions ?Recorded ?Confirmed cariprazine 3 mg capsule (Vraylar) 3 mg PO Q24H 04/16/23 02/23/25 clonazepam 0.5 mg tablet 0.5 mg PO Q12H PRN anxiety 04/16/23 02/23/25 pantoprazole 40 mg tablet,delayed 40 mg PO Q12H PRN acid reflux 04/16/23 02/23/25 release Allergies Allergy/AdvReac Type Severity Reaction Status Date / Time No Known Drug Allergies Allergy Verified 02/23/25 15:47 Review of Systems ROS Status of ROS 10 or more systems reviewed and unremarkable except as noted in history and below PFSH PFSH Social History Smoking status: Current every day smoker Little interest or pleasure in doing things: not at all Feeling down, depressed, or hopeless: not at all Exam Narrative Exam Narrative: Nurses notes and vital signs reviewed and patient is not hypoxic. General: Mild respiratory distress Skin: Warm, dry, no pallor noted. No rash. Head: Normocephalic, atraumatic. Neck: Supple, non-tender. Eye: Pupils are equal, round and EOMI. No scleral icterus. Ears, Nose, Mouth, and Throat: TM are clear, no nasal mucosal hypertrophy. Oral mucosa is moist, no posterior oropharynx erythema, uvula is mid-line Cardiovascular: Regular Rate and Rhythm without murmur, gallop or rub. Respiratory: Mild respiratory distress and tachypnea the patient is not using any accessory muscle Lungs there is a wheezing heard in both lung field expiratory and there is restricted airway Back: No midline thoracic or lumbar vertebral tenderness. No CVA tenderness Musculoskeletal: normal ROM, no calf or popliteal tenderness, no lower extremity edema/swelling GI: Abdomen is soft, non-distended. Normal bowel sounds. No masses appreciated. No tenderness to palpation. No rebound, guarding, or rigidity noted. Neurological: A&O x4. No cranial nerve dysfunction observed. No truncal ataxia. Moves all extremities. Sensation intact. Psychiatric: Cooperative and interactive. Normal mood and affect. Constitutional Vital Signs, click to edit/add: Last Vital Signs Temp 98.7 F 02/23/25 15:47 Pulse 97 H 02/23/25 16:56 Resp 23 H 02/23/25 16:56 BP 142/103 H 02/23/25 16:56 Pulse Ox 93 L 02/23/25 16:56 O2 Del Method Room Air 02/23/25 15:57 Course Vital Signs Vital signs: Vital Signs Temperature 98.7 F 02/23/25 15:47 Pulse Rate 103 H 02/23/25 15:47 Respiratory Rate 24 H 02/23/25 15:47 Blood Pressure 135/99 H 02/23/25 15:47 Pulse Oximetry 92 L 02/23/25 15:47 Oxygen Delivery Method Room Air 02/23/25 15:47 Temperature 98.7 F 02/23/25 15:47 Pulse Rate 97 H 02/23/25 16:56 Respiratory Rate 23 H 02/23/25 16:56 Blood Pressure 142/103 H 02/23/25 16:56 Pulse Oximetry 93 L 02/23/25 16:56 Oxygen Delivery Method Room Air 02/23/25 15:57 MDM - SOB/Dyspnea MDM Narrative Medical decision making narrative: Upon arrival it was noted that the patient have a very extensive wheezing on examination and his pulse ox is 90% on room air The patient CBC shows leukocytosis but the patient have eosinophilia that is above 20% lactic acid is not elevated Chemistry shows no acute pathology and the patient received initially Solu-Medrol in addition to DuoNeb Blood culture obtained Chest x-ray showed no pneumonia The D-dimer was not elevated The patient presentation is concerning for reactive airway and possible asthma that is moderate-severe and persistent associated with hypoxemia at room air The patient initially did not want to be admitted and I did explain to him that with his hypoxemia and the fact that he is saturating 91% on 2 L nasal cannula when taking that off and walking around the patient dropped to 88% and he started being dizzy The patient was admitted for further evaluation of his hypoxemia in addition to covered with ceftriaxone and azithromycin for possible pneumonia Patient case was discussed with and he agreed with above-mentioned plan Lab Data Labs: Lab Results 02/23/25 Range/Units 15:55 WBC 20.8 H (4.0-11.0) 10^3/uL RBC 5.53 (4.70-6.10) 10^6/uL Hgb 17.4 (14.0-18.0) g/dL Hct 48.1 (42.0-54.0) % MCV 87.0 (80.0-94.0) fL MCH 31.5 (25.9-34.0) pg MCHC 36.2 H (29.9-35.2) g/dL RDW 12.8 (11.0-15.0) % Plt Count 287 (150-450) 10^3/uL MPV 9.8 (9.5-13.5) fL Seg Neuts % (Manual) 49.0 (43.0-75.0) Lymphocytes % (Manual) 18.0 L (20.5-60.0) % Monocytes % (Manual) 2.0 (1.7-12.0) % Eosinophils % (Manual) 20.0 H (0.9-7.0) % Basophils % (Manual) 1.0 (0.2-2.0) % Neutrophils # (Manual) 10.19 H (1.4-6.5) 10^3/uL Lymphocytes # (Manual) 3.74 (1.20-3.80) 10^3/uL Monocytes # (Manual) 0.41 (0.30-0.80) 10^3/uL Eosinophils # (Manual) 4.16 H (0.00-0.70) 10^3/uL Basophils # (Manual) 0.20 H (0.00-0.10) 10^3/uL D-Dimer 0.23 (<=0.59) mg/L FEU Sodium 144 (136-145) mmol/L Potassium 3.7 (3.5-5.1) mmol/L Chloride 107 (98-107) mmol/L Carbon Dioxide 25.4 (21.0-32.0) mmol/L Anion Gap 15.3 BUN 11.0 (7.0-18.0) mg/dL Creatinine 0.74 (0.70-1.30) mg/dL Est GFR ( Amer) >60 (>=60 mL/min/1.73m^2) Est GFR (Non-Af Amer) >60 (>=60 mL/min/1.73m^2) BUN/Creatinine Ratio 14.9 Glucose 86 (74-106) mg/dL Lactate 1.0 (0.4-2.0) mmol/L Calcium 9.3 (8.5-10.1) mg/dL Total Bilirubin 0.3 (0.2-1.0) mg/dL AST 27 (15-37) U/L ALT 47 (16-63) U/L Alkaline Phosphatase 155 H (46-116) U/L Troponin I High Sens 4.5 (4.0-76.1) pg/mL Total Protein 7.7 (6.4-8.2) g/dL Albumin 4.0 (3.4-5.0) g/dL Globulin 3.7 g/dL Albumin/Globulin Ratio 1.1 Discharge Plan Discharge Chief Complaint: Shortness of Breath/Dyspnea Clinical Impression: Hypoxemia, Pneumonia, Reactive airway disease, Eosinophilia Patient Disposition: Admitted As Inpatient Time of Disposition Decision: 18:24
--- NOTE | 2025-02-23 18:55 | PC.NURSE ---
pt wanting to sign out AMA - states he has too many plans this weekend . Informed pt he should really come back if he starts to feel bad again. pt agreeable to finishing ATBs before he departs Dr Hernandez also at bedside speaking with pt about admission
[2025-02-23] MEDS: AZITHROMYCIN 500 MG in 0.9 % SODIUM CHLORIDE 250 ML 250 MG IV (19:24)
--- NOTE | 2025-02-23 19:54 | PC.NURSE ---
this patient complains of pain to iv site, and nausea, so iv ATB stopped. this iv site shows no signs of infiltration or pain to iv site or redness to iv site
[2025-02-23] MEDS: AZITHROMYCIN 250 MG TABLET 500 MG PO (20:07)
--- NOTE | 2025-02-23 20:14 | PC.NURSE ---
once this patient was informed of the negative effects of leaving AMA, and this patient voices yes understanding these and signed the AMA form. this patient voices no concerns, needs and shows no signs of distress
[2025-02-28 14:40] LABS: A. calcoaceticus-baumannii Cpx NOT DETECTED (NOT DETECTE); Bacteroides fragilis NOT DETECTED (NOT DETECTE); Candida auris NOT DETECTED (NOT DETECTE); Candida glabrata NOT DETECTED (NOT DETECTE); Enterobacterales NOT DETECTED (NOT DETECTE); Enterococcus faecalis NOT DETECTED (NOT DETECTE); Enterococcus faecium NOT DETECTED (NOT DETECTE); Klebsiella aerogenes NOT DETECTED (NOT DETECTE); Klebsiella pneumoniae group NOT DETECTED (NOT DETECTE); Proteus spp. NOT DETECTED (NOT DETECTE); Salmonella spp. NOT DETECTED (NOT DETECTE); Serratia marcescens NOT DETECTED (NOT DETECTE); Staphylococcus epidermidis NOT DETECTED (NOT DETECTE); Staphylococcus lugdunensis NOT DETECTED (NOT DETECTE); Staphylococcus spp. NOT DETECTED (NOT DETECTE); Stenotrophomonas maltophilia NOT DETECTED (NOT DETECTE); Streptococcus pyogenes NOT DETECTED (NOT DETECTE); Streptococcus spp. NOT DETECTED (NOT DETECTE)
[2025-02-28 14:41] LABS: Source BLOOD
== END 2025-02-23 20:10 | disposition left against medical advice (07) ==
PROVIDERS: Emergency Medicine; Emergency Provider Emergency Medicine; PCP Family Medicine
DX: Z53.29 Procedure and treatment not carried out because of patient's decision for other reasons (principal); R06.02 Shortness of breath
CPT/HCPCS: 36415; 71045; 80053; 83605; 84484; 85007; 85027; 85378; 87040; 87150; 93005; 94640; 96365; 96367; 96375; 99285; J0456; J0696; J2919